=== PATIENT | female | born 1940 | race Caucasian/White ===

== ENCOUNTER 2020-07-30 17:13 | Emergency (ER) | payer MEDICARE, SELFPAY ==
[2020-07-30] VITALS (9 sets, daily range): BP systolic 113–138; BP diastolic 51–65; PULSE 71–76; RESP 12–18; TEMP 36.2–36.5; O2SAT 96–100
--- NOTE | 2020-07-30 17:15 | ED.GENADUL_ITS ---
Discharge Plan Disposition Patient Disposition: HOME Condition: Good Discharge Details Clinical Impression: Vomiting, Grief Primary Care Provider: Unknown,Unknown ED Provider: Melissa Young Home Meds and New Rx's Prescriptions: Continued atorvastatin 40 mg Tablet 40 mg PO QPM RF: 0 aspirin 325 mg Tablet 325 mg PO DAILY RF: 0 donepezil 10 mg Tablet 10 mg PO QHS RF: 0 lisinopril 20 mg Tablet 20 mg PO DAILY RF: 0 levothyroxine 100 mcg Tablet 100 mcg PO DAILY RF: 0 paroxetine HCl 20 mg Tablet 20 mg PO DAILY RF: 0 metformin 1,000 mg Tablet 1,000 mg PO BID RF: 0 furosemide 20 mg Tablet 20 mg PO DAILY RF: 0 diltiazem HCl [DILT-XR] 180 mg Capsule,Ext.Rel 24h Degradable 180 mg PO BID RF: 0 metoprolol tartrate 25 mg Tablet 25 mg PO BID RF: 0 calcium carbonate-vitamin D3 [Calcium 600 with Vitamin D3] 600 mg(1,500mg) - 500 unit Capsule 1 cap PO DAILY RF: 0 Xarelto 20 mg Tablet 20 mg PO DAILY RF: 0 Discharge Instructions Instructions: Grief and Loss (ED), Acute Nausea and Vomiting (ED) Additional Instructions: Drink plenty of fluids and get plenty of rest. Take the Phenergan as needed and directed for nausea and vomiting. Take Benadryl as needed and directed to help with sleep. You will receive a call from care management regarding a follow-up appointment with a primary care doctor to establish care and for reevaluation. Return immediately to the emergency department if you develop any worsening or new concerning symptoms. Discharge Data Discharge Date/Time-TO BE ENTERED AT DEPARTURE: 07/30/20 19:45 Discharge Physician: Melissa Young Medical Decision Making [id number] -- 80-year-old female who recently moved here from [place] after lost her presents for vomiting which occurs 1-2 times nightly for the past 4 days. Patient appears nontoxic and comfortable. Her vitals within normal limits. She has no acute complaints at this time. Her lungs are clear. Abdomen soft and nontender. No focal deficits. She was sent here by her PCP from [place] to rule out possible UTI. She has no urinary symptoms. EKG notes a rate of 73, atrial flutter, no STEMI. No old EKG to compare. Differential diagnosis includes psychosomatic reaction, viral illness, UTI, electrolyte abnormality. History and presentation not consistent with CVA or ACS. Will check screening labs, urinalysis and give fluids and Phenergan and reassess. 1900 -- Labs reviewed. Normal white blood cell count. She appears mildly dehydrated. Magnesium 1.1, will replete. Urinalysis negative. Patient reassessed and she remains asymptomatic. She has no acute complaints at this time and is requesting to go home. Daughter feels comfortable with patient going home. We will send with Phenergan. Patient placed on care management list to arrange for follow-up appoint with the primary care doctor for reevaluation and to establish care. Usual and customary return precautions given prior to discharge. Medical Records Medical records reviewed: Yes I reviewed the patient's medical records. Lab Data Lab results reviewed: Yes I reviewed the patient's lab results. Labs: Laboratory Tests Range/Units 07/30/20 07/30/20 07/30/20 17:55 17:55 18:45 WBC (4.4-10.8) 10^3/uL 8.20 RBC (3.93-5.22) 10^6/uL 4.15 Hgb (11.2-15.7) g/dL 12.3 Hct (36.0-46.0) % 36.9 MCV (80-95) fL 88.9 MCH (27.0-33.0) pg 29.6 MCHC (32.0-36.0) % 33.3 RDW (11.7-14.6) % 13.9 Plt Count (130-400) 10^3/uL 234 MPV (8.0-11.0) fL 11.1 H Immature Gran % 0.2 Neutrophils % 59.8 Lymphocytes % 27.7 Monocytes % 11.0 Eosinophils % 0.9 Basophils % 0.4 Nucleated RBC % % 0 Absolute Neutrophils (1.2-6.7) 10^3/uL 4.91 Absolute Lymphocytes (1.2-3.4) 10^3/uL 2.27 Absolute Monocytes (0.1-0.8) 10^3/uL 0.90 H Absolute Eosinophils (0.0-0.7) 10^3/uL 0.07 Absolute Basophils (0.0-0.2) 10^3/uL 0.03 Sodium (136-145) mmol/L 137 Potassium (3.5-5.1) mmol/L 3.4 L Chloride (98-107) mmol/L 100 Carbon Dioxide (21.0-32.0) mmol/L 22.7 Anion Gap (3-11) mmol/L 14.3 H BUN (7-18) mg/dL 30 H Creatinine (0.55-1.02) mg/dL 1.68 H Estimated GFR/1.73 m2 (mL/min/1.73m2) 29.47 Glucose (74-106) mg/dL 112 H Calcium (8.5-10.1) mg/dL 9.9 Magnesium (1.8-2.4) mg/dL 1.1 L Total Bilirubin (0.2-1.0) mg/dL 0.4 AST (15-37) U/L 16 ALT (14-59) U/L 21 Alkaline Phosphatase (46-116) U/L 87 Troponin I (<0.06) ng/mL < 0.05 Total Protein (6.4-8.2) g/dL 8.4 H Albumin (3.4-5.0) g/dL 4.4 Urine Color (Yellow) Yellow Urine Clarity (Clear) Clear Urine pH (5-8) 5.5 Ur Specific [place] (1.005-1.025) 1.020 Urine Protein (Negative) mg/dL Negative Urine Ketones (Negative) mg/dL Negative Urine Blood (Negative) Negative Urine Nitrite (Negative) Negative Urine Bilirubin (Negative) Negative Urine Urobilinogen (Up TO 0.2) EU/dL 0.2 Ur Leukocyte Esterase (Negative) Negative Urine Glucose (Negative) mg/dL Negative ECG Data Attestation: I personally reviewed and interpreted this ECG (s) as follows: Interpretation: Rate of 73, atrial flutter. Questionable left bundle branch block. No STEMI. No old EKG to compare. HPI General Mode of arrival: ambulatory . Date/Time Provider Initiated Documentation: 07/30/20 17:14 . Limitations to Documentation: no limitations . Information obtained by: patient . HPI Narrative: Patient is a 80-year-old female with a history of Alzheimer's dementia, atrial fibrillation, hypertension, hyperlipidemia, hypothyroidism presents for vomiting 1-2 times daily for the past 4 days that occurs only at nighttime. Daughter states that patient appears to vomit approximately 8 PM every night which is usually 1-2 times but mainly consists of food or clear liquid. She states patient does fine throughout the day and is eating normally and has no other acute complaints. She states patient lost her 1 week ago suddenly after an illness for the past 3 weeks. Daughter states that patient recently moved from [place] to live with her here. She denies any known fever, headache, dizziness, vision changes, chest pain, shortness of breath, abdominal pain, urinary symptoms, back pain, recent known sick contacts, recent antibiotics, recent medication changes or recent known exposure to coronavirus. Daughter states that patient is at her mental status baseline. Related Data Home Medications Medication Instructions Recorded Confirmed Xarelto 20 mg PO DAILY 07/30/20 07/30/20 aspirin 325 mg PO DAILY 07/30/20 07/30/20 atorvastatin 40 mg PO QPM 07/30/20 07/30/20 calcium carbonate-vitamin D3 1 cap PO DAILY 07/30/20 07/30/20 [Calcium 600 with Vitamin D3] diltiazem HCl [DILT-XR] 180 mg PO BID 07/30/20 07/30/20 donepezil 10 mg PO QHS 07/30/20 07/30/20 furosemide 20 mg PO DAILY 07/30/20 07/30/20 levothyroxine 100 mcg PO DAILY 07/30/20 07/30/20 lisinopril 20 mg PO DAILY 07/30/20 07/30/20 metformin 1,000 mg PO BID 07/30/20 07/30/20 metoprolol tartrate 25 mg PO BID 07/30/20 07/30/20 paroxetine HCl 20 mg PO DAILY 07/30/20 07/30/20 Allergies Allergy/AdvReac Type Severity Reaction Status Date / Time Penicillins Allergy Skin Rash Unverified 07/30/20 17:23 Review of Systems All systems reviewed & are unremarkable except as noted in HPI and below Constitutional Constitutional: Reports as per HPI, Denies chills and Denies fever(s) Eyes Eyes: Denies blurry vision ENT Ears, Nose, Mouth, and Throat: Denies dizziness, Denies sore throat and Denies throat swelling Cardiovascular Cardiovascular: Denies chest pain and Denies dyspnea Respiratory Respiratory: Denies cough and Denies dyspnea Gastrointestinal Gastrointestinal: Denies abdominal pain, Denies diarrhea and Reports vomiting Genitourinary Genitourinary: Denies hematuria and Denies dysuria Musculoskeletal Musculoskeletal: Denies back pain and Denies numbness Integumentary/Breasts Skin/Breast: Denies lesions and Denies rash Neurologic Neurologic: Denies dizziness, Denies localized weakness and Denies numbness Allergic/Immunologic Allergic/Immunologic: Denies throat swelling [facility] Medical History (Updated 07/30/20 @ 19:29 by Melissa Young DO) Alzheimer's dementia Atrial fibrillation HTN (hypertension) Hx of hyperlipidemia Hypothyroidism Social History Smoking/Tobacco Use Status: Former Tobacco Use Smoking risk assessment performed?: Yes Alcohol Intake: never Drug use: Never Substance use type: does not use Exam Const General: cooperative and no acute distress Orientation: alert, awake and oriented x3 HENMT Head: normal to inspection Ears: hearing grossly normal bilaterally and external ears normal General nose exam: external nose normal Face and sinus: normal facial exam Mouth: oral mucosae normal Teeth and gingiva: dentition normal Throat: posterior oropharynx normal Eyes General: appearance normal, both eyes and all related structures Eyelids: eyelids normal Pupils: PERRL EOM: EOM intact bilaterally Neck Neck: normal visual inspection Lymphatic: no lymphadenopathy noted Chest Chest: normal inspection of the chest Resp Effort & Inspection: normal respiratory effort and able to speak in complete sentences Auscultation: clear to auscultation bilaterally Cardio Rate: regular rate Rhythm: regular rhythm GI Inspection: normal to inspection Palpation: soft, not firm, no guarding, no hepatosplenomegaly, no masses and nontender Auscultation: normal bowel sounds Back/Spine/Pelvis Back: no CVA tenderness Skin General skin exam: no rashes or lesions noted Neuro General: patient alert and patient awake Cognition: normal cognition Speech: speech normal Gait: normal gait Motor: muscle tone normal throughout Sensory Exam: no sensory deficits noted Extrem General: normal to inspection, full ROM, capillary refill normal and no edema Psych Appearance: grossly normal Mental Status: mental status grossly normal Speech and Movement: speech and movement normal Affect: normal affect Thought Process: normal
--- NOTE | 2020-07-30 17:30 | RT.EKG_ITS ---
APPROVED REPORT Exam: Resting ECG Patient Location: E HR:73 bpm ECG Measurements Heart Rate 73 [place]IS [place] [id number] P [id number] QRSd 124 QRS -33 QT 424 T 99 QTc 469 Conclusion Atrial flutter with predominant 4:1 AV block...A-rate 300, multiple Ps Left bundle branch block...QRSd>120, broad/notched R ST elevation secondary to atrial flutter I have reviewed and interpreted ECG and agree with software generated interpretation.
[2020-07-30 18:00] LABS: Abs Immature Grans 0.02 10^3/uL (0.0-0.06); Absolute Basophil Count 0.03 10^3/uL (0.0-0.2); Absolute Eosinophil Count 0.07 10^3/uL (0.0-0.7); Absolute Lymphocyte Count 2.27 10^3/uL (1.2-3.4); Absolute Neutrophil Count 4.91 10^3/uL (1.2-6.7); Basophils % 0.4; Eosinophils % 0.9; HCT 36.9 % (36.0-46.0); HGB 12.3 g/dL (11.2-15.7); Immature Grans % 0.2; Lymphocytes % 27.7; MCH 29.6 pg (27.0-33.0); MCHC 33.3 % (32.0-36.0); MCV 88.9 fL (80-95); MPV 11.1 fL (8.0-11.0); Neutrophils % 59.8; Nucleated RBC 0 %; Platelet Count 234 10^3/uL (130-400); RBC 4.15 10^6/uL (3.93-5.22); RDW 13.9 % (11.7-14.6); RDW-SD 45.1 fL
[2020-07-30] MEDS: Normal Saline 1,000 ML 1000 ML IV (18:10)
[2020-07-30] MEDS: Normal Saline Flush 10 ML SYR IVP (18:20)
[2020-07-30 18:52] LABS: ALT 21 U/L (14-59); AST 16 U/L (15-37); Albumin 4.4 g/dL (3.4-5.0); Alkaline Phosphatase 87 U/L (46-116); Anion Gap 14.3 mmol/L (3-11); BUN 30 mg/dL (7-18); Bilirubin, Total 0.4 mg/dL (0.2-1.0); CO2 22.7 mmol/L (21.0-32.0); CREATININE 1.68 mg/dL (0.55-1.02); Calcium 9.9 mg/dL (8.5-10.1); Chloride 100 mmol/L (98-107); Estimated GFR 29.47 (mL/min/1.73m2); Glucose 112 mg/dL (74-106); Magnesium 1.1 mg/dL (1.8-2.4); Potassium 3.4 mmol/L (3.5-5.1); Sodium 137 mmol/L (136-145); Total Protein 8.4 g/dL (6.4-8.2)
[2020-07-30 18:53] LABS: Bilirubin Negative (Negative); Blood Negative (Negative); Clarity Clear (Clear); Glucose Negative (Negative); Ketones Negative (Negative); Leukocyte Esterase Negative (Negative); Nitrite Negative (Negative); Urobilinogen 0.2 EU/dL (Up TO 0.2); pH 5.5 (5-8)
[2020-07-30 18:54] LABS: Troponin I < 0.05 ng/mL (<0.06)
--- NOTE | 2020-07-30 19:18 | NUR.NOTE ---
Pt feeling well, denies nausea, pain. MD Young in to re-eval
[2020-07-30] MEDS: Magnesium Oxide 400 MG TAB 800 MG PO (19:44)
--- NOTE | 2020-07-30 23:40 | NUR.NOTE ---
sent referral to [facility] for pcp establishment, and follow up with pcp in 2 weeks. [facility] Nursing Note:
--- NOTE | 2020-07-30 23:41 | NUR.NOTE ---
patient left without registering with hospital. no contact info listed for f/u. unable to send referral. [facility] Nursing Note:
== END 2020-07-30 19:45 | disposition home or self-care (01) ==
LOC: ER 20:09
PROVIDERS: Emergency Provider Physician Assistant
DX: R11.2 Nausea with vomiting, unspecified (principal); F43.21 Adjustment disorder with depressed mood; G30.9 Alzheimer's disease, unspecified; F02.80 Dementia in other diseases classified elsewhere, unspecified severity, without behavioral disturbance, psychotic disturbance, mood disturbance, and anxiety; I10 Essential (primary) hypertension
CPT/HCPCS: 36415; 80053; 93005; 96361; 96365; 99284; 81003; 83735; 84484; 85025; 93010; 99285

== ENCOUNTER 2021-02-19 19:40 | Observation (INO) | payer MEDICARE, SELFPAY ==
[2021-02-19] VITALS (22 sets, daily range): BP systolic 106–142; BP diastolic 48–70; PULSE 47–73; RESP 14–44; TEMP 36.8; O2SAT 95–99
--- NOTE | 2021-02-19 20:01 | ED.GENADUL_ITS ---
Discharge Plan Disposition Patient Disposition: [facility] INPATIENT Condition: Stable Discharge Details Chief Complaint: GenMedical Clinical Impression: Accidental overdose Admit Date/Time: 02/19/21 22:40 Admit Provider: Anshu Smith Attending Provider: Anshu Smith Primary Care Provider: Elizabeth,[facility] ED Provider: Barb Turner Discharge Data Discharge Date/Time-TO BE ENTERED AT DEPARTURE: 02/19/21 22:35 Medical Decision Making Patient is a pleasant 81 year old female with hx of alzheimers who is brought in by family with c/c of accidental overdose. Immanuel lives with family. This even, per family, patient had a change in her shcedule which accidentally lead to her taking 3 of her evening medication doses. Family concerned that patient took 3 doses of her diltiazem, denepazil, metformin, atorvastatin. Todd does not remember taking the extra doses, family states that with her alzheimers, this is not unusual for her to forget. Fmaily states that she had checked medications early in the evening and belives between 5 and 6pm, patient took 3 nights dosing. Poison control is concerned for CCB overdose which would present with bradycardia, hypotension. He advised that if family can stay with her, and her vital signs are stable, patient does not need to stay to be monitored. Will depend on comfort of family, hopefully would be able to monitor BP and HR. Wake up in the evening a few times to check mentation. He advises he expects to see effects fairly quickly. Advises that 12hrs monitoring by family ok. Reviewed previous labs, patient has had low GFR on visit last fall. We discussed repeating labs, he advised that no further workup is warranted. Could check GFR to be safe but feels confident recommending outpatient renal check. Q2hr check. Keep well hydrated. On exam, patient appears nontoxic. Shortly after arrival, patient had episode of nausea and small amount of liquid emesis. No pills noted. She states this feeling has subisded, she is hungry. She is bradycardic with HR in the 50s. BP stable. Unknown what her normal BP or HR are. She is also on b-carlo which was not reported to be in the overdosed medication. She is mentating well, she is slightly confused but this is reported to be at her baseline. Discussed recommendations from Poison Control with family and patient at length. With her confusion, bradycardia, episode of emesis, and comfortability of family, plan to keep patient in the hospital overnight for her 12 hour period of monitoring. Family and patient in agreement. ECG reviewed by Dr. Young, slow atrial fibrillation noted. Patient has hx of a. fib. Baseline labs reviewed, GFR improved from previous visit. Magnesium and potassium low, will replenish. Patient remains asymptomatic. No continued N/V. She is not lightheaded, no SOB, CP. Consulted with Dr. Smiht who agrees charles admission. Patient remains on monitor. Remains in stable condition at the time of admission. HPI General Mode of arrival: ambulatory . Date/Time Provider Initiated Documentation: 02/19/21 20:01 . Limitations to Documentation: altered mental status (hx alzheimers) . Information obtained by: patient, family and RN notes reviewed . History of Present Illness 81 year old F presents to the emergency department with the chief complaint of Mistook medications, Quality is described as other (denies any pain), Patient started experiencing this hour(s) and it has been constant. Movement improves symptom(s), No exacerbating factors reported . Patient notes no other symptoms.. Patient did receive the following treatments prior to arrival, none Related Data Home Medications Medication Instructions Recorded Confirmed Xarelto 20 mg PO DAILY 07/30/20 02/19/21 aspirin 325 mg PO DAILY 07/30/20 07/30/20 atorvastatin 40 mg PO QPM 07/30/20 02/19/21 calcium carbonate-vitamin D3 1 cap PO DAILY 07/30/20 07/30/20 [Calcium 600 with Vitamin D3] diltiazem HCl [DILT-XR] 180 mg PO BID 07/30/20 02/19/21 donepezil 10 mg PO QHS 07/30/20 02/19/21 furosemide 20 mg PO DAILY 07/30/20 02/19/21 levothyroxine 100 mcg PO DAILY 07/30/20 02/19/21 lisinopril 20 mg PO DAILY 07/30/20 02/19/21 metformin 1,000 mg PO BID 07/30/20 02/19/21 metoprolol tartrate 25 mg PO BID 07/30/20 02/19/21 paroxetine HCl 20 mg PO DAILY 07/30/20 02/19/21 Allergies Allergy/AdvReac Type Severity Reaction Status Date / Time Penicillins Allergy Skin Rash Unverified 02/19/21 20:14 General ALANNA: 3 Review of Systems Unobtainable due to mental condition PFSH Medical History Alzheimer's dementia Atrial fibrillation HTN (hypertension) Hx of hyperlipidemia Hypothyroidism Social History Smoking/Tobacco Use Status: Former Tobacco Use Smoking risk assessment performed?: Yes Alcohol Intake: never Drug use: Never Substance use type: does not use Do you feel safe at home: Yes Do you feel safe in your relationship?: Yes Exam Const General: cooperative, healthy appearing, comfortable and no acute distress Nutritional Appearance: average body habitus and well nourished Orientation: alert and awake Resp Effort & Inspection: normal respiratory effort, able to speak in complete sentences and no respiratory distress Cardio Rate: bradycardic Rhythm: regular rhythm Heart Sounds: S1 normal and S2 normal GI Inspection: normal to inspection Palpation: soft and nontender Percussion: normal to percussion Skin General skin exam: no rashes or lesions noted Neuro General: patient alert and patient awake Cognition: normal cognition Speech: speech normal Gait: normal gait Psych Appearance: grossly normal and well kempt Mental Status: mental status grossly normal Speech and Movement: speech and movement normal
--- NOTE | 2021-02-19 20:45 | RT.EKG_ITS ---
APPROVED REPORT Exam: Resting ECG Reason for Exam: dilt OD Patient Location: E HR:58 bpm ECG Measurements Heart Rate 58 [address] [place] [id number] P [id number] QRSd 124 QRS -43 QT 476 T 113 QTc 468 Conclusion Atrial flutter...A-rate 294 Left bundle branch block...QRSd>120, broad/notched R. No STEMI. I have reviewed and interpreted ECG and agree with software generated interpretation.
[2021-02-19 21:39] LABS: Abs Immature Grans 0.03 10^3/uL (0.0-0.06); Absolute Basophil Count 0.03 10^3/uL (0.0-0.2); Absolute Eosinophil Count 0.07 10^3/uL (0.0-0.7); Absolute Lymphocyte Count 1.29 10^3/uL (1.2-3.4); Absolute Monocyte Count 0.77 10^3/uL (0.1-0.8); Absolute Neutrophil Count 5.25 10^3/uL (1.2-6.7); Basophils % 0.4; Eosinophils % 0.9; HCT 34.1 % (36.0-46.0); HGB 11.1 g/dL (11.2-15.7); Immature Grans % 0.4; Lymphocytes % 17.3; MCH 27.3 pg (27.0-33.0); MCHC 32.6 % (32.0-36.0); MCV 83.8 fL (80-95); MPV 11.4 fL (8.0-11.0); Monocytes % 10.3; Neutrophils % 70.7; Nucleated RBC 0 %; Platelet Count 211 10^3/uL (130-400); RBC 4.07 10^6/uL (3.93-5.22); RDW 13.8 % (11.7-14.6); RDW-SD 42.8 fL; WBC 7.44 10^3/uL (4.4-10.8)
[2021-02-19 21:57] LABS: ALT 13 U/L (14-59); AST 13 U/L (15-37); Albumin 3.7 g/dL (3.4-5.0); Alkaline Phosphatase 91 U/L (46-116); Anion Gap 15.4 mmol/L (3-11); BUN 19 mg/dL (7-18); Bilirubin, Total 0.3 mg/dL (0.2-1.0); CO2 22.6 mmol/L (21.0-32.0); CREATININE 1.1 mg/dL (0.55-1.02); Calcium 9.8 mg/dL (8.5-10.1); Chloride 103 mmol/L (98-107); Estimated GFR 47.91 (mL/min/1.73m2); Glucose 114 mg/dL (74-106); Magnesium 1.4 mg/dL (1.8-2.4); Potassium 3.4 mmol/L (3.5-5.1); Sodium 141 mmol/L (136-145); Total Protein 7.7 g/dL (6.4-8.2)
[2021-02-19 22:24] LABS: Source Nasal/Nares
[2021-02-19] MEDS: Lactated Ringers 1,000 ML 1000 ML IV (22:32)
[2021-02-19] MEDS: MAGNESIUM SULFATE 1 GM/100 ML BAG IVPB (22:33)
--- NOTE | 2021-02-19 23:54 | HPE_ITS ---
Date of service: 02/19/21 Time of Service: 23:54 Assessment and Plan Assessment and plan (1) Accidental overdose: Status: Acute Assessment and plan: monitor on telemetry overnight and if no significant bradycardias then patiet can be released home in the morning Qualifiers: Encounter type: initial encounter Qualified Code(s): T50.901A - Poisoning by unspecified drugs, medicaments and biological substances, accidental (unintentional), initial encounter History of Present Illness History of Present Illness Chief Complaint: accidental OD of meds Narrative: Patient has hx of Alzheimer's dementia, HLD, HTN afib, and hypothyroidism and her family brought her to the ER tonight d/t patient became confused and inadvertently took doses of her meds (including diltiazem xr 180 mg x 3 doses, metformin 1000 mg x 3 doses, atorvastatin 40 mg x 3 doses, and donepezil 10 mg x 3 doses). Patient presented w/ stable vital signs and Poison control was contacted by the ER staff and was advised that the patient could be discharged home as long as a responsible adult could monitor her vital signs every couple hours for 12 hrs. However family was not comfortable w/ this and therefore patient was admitted overnight for observation. Review of Systems Constitutional Constitutional: Reports as per HPI and Reports system reviewed and no additional complaints, except as documented [facility] Medical History Alzheimer's dementia Atrial fibrillation HTN (hypertension) Hx of hyperlipidemia Hypothyroidism Social History Smoking/Tobacco Use Status: Former Tobacco Use Smoking risk assessment performed?: Yes Alcohol Intake: never Drug use: Never Substance use type: does not use Do you feel safe at home: Yes Do you feel safe in your relationship?: Yes Meds Allergies and Home Medications Allergies Allergy/AdvReac Type Severity Reaction Status Date / Time Penicillins Allergy Skin Rash Unverified 02/19/21 20:14 Home Medications Medication Instructions Recorded Confirmed Type Xarelto 20 mg PO DAILY 07/30/20 02/19/21 History aspirin 325 mg PO DAILY 07/30/20 07/30/20 History atorvastatin 40 mg PO QPM 07/30/20 02/19/21 History calcium carbonate-vitamin D3 1 cap PO DAILY 07/30/20 07/30/20 History [Calcium 600 with Vitamin D3] diltiazem HCl [DILT-XR] 180 mg PO BID 07/30/20 02/19/21 History donepezil 10 mg PO QHS 07/30/20 02/19/21 History furosemide 20 mg PO DAILY 07/30/20 02/19/21 History levothyroxine 100 mcg PO DAILY 07/30/20 02/19/21 History lisinopril 20 mg PO DAILY 07/30/20 02/19/21 History metformin 1,000 mg PO BID 07/30/20 02/19/21 History metoprolol tartrate 25 mg PO BID 07/30/20 02/19/21 History paroxetine HCl 20 mg PO DAILY 07/30/20 02/19/21 History Exam Narrative Exam Narrative: Elderly white female alert/oriented to person/place HEENT: unremarkable Lungs: clear Heart: regular; no murmur, rub or gallops Abd: soft and nontender Extremities w/o edema Results Imaging EKG: image reviewed (slow afib rate of 58 bpm w/ LBBB) Labs Result diagrams: 02/20/21 06:36 02/20/21 06:36 Labs: Laboratory Results - last 24 hr 02/19/21 02/19/21 02/19/21 21:23 21:23 22:19 WBC 7.44 RBC 4.07 Hgb 11.1 L Hct 34.1 L MCV 83.8 MCH 27.3 MCHC 32.6 RDW 13.8 Plt Count 211 MPV 11.4 H Immature Gran % 0.4 Neutrophils % 70.7 Lymphocytes % 17.3 Monocytes % 10.3 Eosinophils % 0.9 Basophils % 0.4 Nucleated RBC % 0 Absolute Neutrophils 5.25 Absolute Lymphocytes 1.29 Absolute Monocytes 0.77 Absolute Eosinophils 0.07 Absolute Basophils 0.03 Sodium 141 Potassium 3.4 L Chloride 103 Carbon Dioxide 22.6 Anion Gap 15.4 H BUN 19 H Creatinine 1.1 H Estimated GFR/1.73 m2 47.91 Glucose 114 H Calcium 9.8 Magnesium 1.4 L Total Bilirubin 0.3 AST 13 L ALT 13 L Alkaline Phosphatase 91 Total Protein 7.7 Albumin 3.7 COVID-19 Source Nasal/nares Last Vital Signs Temp 36.8 C 02/19/21 22:56 Pulse 73 02/19/21 22:56 Resp 16 02/19/21 22:56 BP 133/70 02/19/21 22:56 Pulse Ox 97 02/19/21 22:56
[2021-02-20] VITALS (8 sets, daily range): BP systolic 112–132; BP diastolic 48–70; PULSE 59–84; RESP 16–18; TEMP 36.3–36.9; O2SAT 93–98
[2021-02-20 01:27] LABS: COVID-19 PCR Negative (Negative)
[2021-02-20] MEDS: Lactated Ringers 1,000 ML 85 ML IV (02:24)
--- NOTE | 2021-02-20 04:21 | NUR.NOTE ---
Jordyn from the poison centre called to check on the patient status since admission
[2021-02-20 07:25] LABS: Abs Immature Grans 0.01 10^3/uL (0.0-0.06); Absolute Basophil Count 0.03 10^3/uL (0.0-0.2); Absolute Eosinophil Count 0.09 10^3/uL (0.0-0.7); Absolute Lymphocyte Count 1.44 10^3/uL (1.2-3.4); Absolute Monocyte Count 0.68 10^3/uL (0.1-0.8); Absolute Neutrophil Count 2.97 10^3/uL (1.2-6.7); Basophils % 0.6; Eosinophils % 1.7; HCT 32.4 % (36.0-46.0); HGB 10.7 g/dL (11.2-15.7); Immature Grans % 0.2; Lymphocytes % 27.6; MCH 27.5 pg (27.0-33.0); MCV 83.3 fL (80-95); Neutrophils % 56.9; Nucleated RBC 0 %; Platelet Count 222 10^3/uL (130-400); RBC 3.89 10^6/uL (3.93-5.22); RDW 13.7 % (11.7-14.6); WBC 5.22 10^3/uL (4.4-10.8)
[2021-02-20 07:34] LABS: Anion Gap 11.5 mmol/L (3-11); BUN 17 mg/dL (7-18); CO2 25.5 mmol/L (21.0-32.0); CREATININE 0.9 mg/dL (0.55-1.02); Calcium 9.2 mg/dL (8.5-10.1); Chloride 104 mmol/L (98-107); Glucose 106 mg/dL (74-106); Potassium 3.3 mmol/L (3.5-5.1); Sodium 141 mmol/L (136-145)
--- NOTE | 2021-02-20 08:00 | RT.EKG_ITS ---
APPROVED REPORT Exam: Resting ECG Reason for Exam: bradycardia, afib Patient Location: I HR:77 bpm ECG Measurements Heart Rate 77 AXIS [place] 70 P 0 QRSd 119 QRS -36 QT 386 T 150 QTc 436 Conclusion Sinus rhythm...normal P axis, V-rate 60- 99 Incomplete RBBB and LAFB...axis(240,-40), S>R II III aVF LVH with secondary repolarization abnormality...multi-LVH criteria, abnrm ST-T
[2021-02-20] MEDS: MAGNESIUM SULFATE 1 GM/100 ML BAG IVPB (10:36)
[2021-02-20] MEDS: Potassium Chloride 20 MEQ TABCR 40 MEQ PO (10:36)
--- NOTE | 2021-02-20 13:31 | W.PM.DS.N ---
Date of service: 02/20/21 Time of Service: 13:31 DS: Diagnosis Discharge Diagnosis (1) Accidental overdose: Status: Acute Discharge Plan Disposition Patient Disposition: HOME Condition: Stable Discharge Details Reason For Visit: accidental overdose Admit Date/Time: 02/19/21 21:35 Admit Provider: Anshu Smith Attending Provider: Anshu Smith Primary Care Provider: Elizabeth,[facility] Hospital Course Hospital Course: This is a pleasant female with history of dementia, worsening since moving in with her daughter after the of her leaving her unable to safely live home alone. she has been medically stable and in her usual state of health when it was noted she took 3 doses of her evening medication back to back. family presented to the emergency department for evaluation. poison control notified and as medications included diltiazem, donepezil, metformin, and atorvastatin their recommendations were to monitor BP and heart rate closely which family was not prepared to do so she was referred to observation overnight. she remained hemodynamically stable, HR not dropping below 50 and bp remaining stable. she had no symptoms reported and was likely at her baseline. Daughter, who is guardian, would like to transfer her care locally, including pcp and database reporting consultant. referrals have been placed with Dr Vivas and Dr Nuria Terrazas accordingly. No medication adjustments have been advised. safety measures with medications discussed with daughter who has secured the medication to dispense to patient moving forward. discharge discussed with DR Vela. Home Meds and New Rx's Prescriptions: Continued atorvastatin 40 mg Tablet 40 mg PO QPM RF: 0 aspirin 325 mg Tablet 325 mg PO DAILY RF: 0 donepezil 10 mg Tablet 10 mg PO QHS RF: 0 lisinopril 20 mg Tablet 20 mg PO DAILY RF: 0 levothyroxine 100 mcg Tablet 100 mcg PO DAILY RF: 0 paroxetine HCl 20 mg Tablet 20 mg PO DAILY RF: 0 metformin 1,000 mg Tablet 1,000 mg PO BID RF: 0 furosemide 20 mg Tablet 20 mg PO DAILY RF: 0 diltiazem HCl [DILT-XR] 180 mg Capsule,Ext.Rel 24h Degradable 180 mg PO BID RF: 0 metoprolol tartrate 25 mg Tablet 25 mg PO BID RF: 0 calcium carbonate-vitamin D3 [Calcium 600 with Vitamin D3] 600 mg(1,500mg) -500 unit Capsule 1 cap PO DAILY RF: 0 Xarelto 20 mg Tablet 20 mg PO DAILY RF: 0 Discharge Instructions Instructions: Adult Overdose (ED) Additional Instructions: Will be best to have medications dispensed at medication time by a reliable individual rather than self administered. Keep all medication in a secure place. Referrals: Nuria Terrazas MD [ [facility] STAFF PHYSICIAN] - Gabriele Vivas MD [ CONSULTING PHYSICIAN] - Activity:: Activity as Tolerated Equipment/Supplies:: No Equipment Needed Diet:: As Tolerated Discharge Orders Discharge Orders: Discharge Order (Routine); Ordered 02/20/21 Ordered By: Nuria Caruso DS: Summary Time Spent with Patient providing and/or coordinating discharge services: Less than 30 minutes Status at Discharge Functional status at discharge: independent ambulation Overall status at discharge: patient is back to baseline Mental Status: mental status grossly normal Speech and Movement: speech and movement normal Mood: congruent mood Affect: normal affect Exam Narrative Exam Narrative: Elderly white female alert/oriented to person/place HEENT: unremarkable Lungs: clear Heart: regular; no murmur, rub or gallops Abd: soft and nontender Extremities w/o edema Psych Mental Status: mental status grossly normal Speech and Movement: speech and movement normal Mood: congruent mood Affect: normal affect DS: Data Vitals/I&O Vitals and I&O: Vital Signs Temperature 36.6 C 02/20/21 12:05 Temperature Source Temporal Artery Scan 02/20/21 12:05 Pulse 73 02/20/21 12:05 Pulse Rhythm Regular 02/20/21 07:26 Pulse 54 L 02/19/21 22:00 Respiratory Rate 18 02/20/21 12:05 Respiratory Effort Non-Labored 02/20/21 07:26 Respiratory Depth Normal 02/20/21 07:26 Respiratory Pattern Normal 02/20/21 07:26 Blood Pressure 114/69 02/20/21 12:05 Blood Pressure Mean 66 02/19/21 21:01 Blood Pressure Position Supine 02/19/21 20:07 Pulse Oximetry 97 02/20/21 12:05 Oxygen Delivery Method Room Air 02/20/21 12:05 Oxygen Flow Rate 0 02/20/21 12:05 Pain Level 0 02/20/21 12:05 Comment 02/20/21 12:04 Intake & Output 02/19/21 02/20/21 02/20/21 23:59 11:59 23:59 Intake Total 100 / 100 1633.583 / 2181.000 547.417 / 2181.000 Output Total 1325 / 2075 750 / 2075 Balance 100 / 100 308.583 / 106.000 -202.583 / 106.000 Weight 58.96 kg 59 kg Intake: IV 603.583 / 911.000 307.417 / 911.000 Oral 100 / 100 1030 / 1270 240 / 1270 Output: Urine 1325 / 2075 750 / 2075 Other: Urine Color Yellow Pale Yellow Urine Appearance Clear Clear Urine Odor Normal Normal Stool Size Small Stool Characteristics Soft Brown Voiding Methods Toilet Toilet Data Completed and Pending Labs on day of discharge: Labs from last 24 hours 02/20/21 02/20/21 02/19/21 06:36 06:36 22:19 WBC 5.22 RBC 3.89 L Hgb 10.7 L Hct 32.4 L MCV 83.3 MCH 27.5 MCHC 33.0 RDW 13.7 Plt Count 222 MPV 11.0 Immature Gran % 0.2 Neutrophils % 56.9 Lymphocytes % 27.6 Monocytes % 13.0 Eosinophils % 1.7 Basophils % 0.6 Nucleated RBC % 0 Absolute Neutrophils 2.97 Absolute Lymphocytes 1.44 Absolute Monocytes 0.68 Absolute Eosinophils 0.09 Absolute Basophils 0.03 Sodium 141 Potassium 3.3 L Chloride 104 Carbon Dioxide 25.5 Anion Gap 11.5 H BUN 17 Creatinine 0.9 Estimated GFR/1.73 m2 >= 60.00 Glucose 106 Calcium 9.2 Magnesium Total Bilirubin AST ALT Alkaline Phosphatase Total Protein Albumin COVID-19 Source Nasal/nares SARS-CoV-2 (PCR) Negative 02/19/21 02/19/21 21:23 21:23 WBC 7.44 RBC 4.07 Hgb 11.1 L Hct 34.1 L MCV 83.8 MCH 27.3 MCHC 32.6 RDW 13.8 Plt Count 211 MPV 11.4 H Immature Gran % 0.4 Neutrophils % 70.7 Lymphocytes % 17.3 Monocytes % 10.3 Eosinophils % 0.9 Basophils % 0.4 Nucleated RBC % 0 Absolute Neutrophils 5.25 Absolute Lymphocytes 1.29 Absolute Monocytes 0.77 Absolute Eosinophils 0.07 Absolute Basophils 0.03 Sodium 141 Potassium 3.4 L Chloride 103 Carbon Dioxide 22.6 Anion Gap 15.4 H BUN 19 H Creatinine 1.1 H Estimated GFR/1.73 m2 47.91 Glucose 114 H Calcium 9.8 Magnesium 1.4 L Total Bilirubin 0.3 AST 13 L ALT 13 L Alkaline Phosphatase 91 Total Protein 7.7 Albumin 3.7 COVID-19 Source SARS-CoV-2 (PCR) [facility] Medical History Alzheimer's dementia Atrial fibrillation HTN (hypertension) Hx of hyperlipidemia Hypothyroidism Social History Smoking/Tobacco Use Status: Former Tobacco Use Smoking risk assessment performed?: Yes Alcohol Intake: never Drug use: Never Substance use type: does not use Do you feel safe at home: Yes Do you feel safe in your relationship?: Yes
--- NOTE | 2021-02-20 13:49 | NUR.NOTE ---
Addendum entered by Shari Gilliam 02/20/21 15:07: At 1507 on 02/20/21, this RN again attempted to return a call from the pt.'s daughter, Kayleigh (sp?). The phone rang a few times and then went to voicemail. RN will reassess as necessary. Original Note: Nursing Note: At 1348 on 02/20/21, this RN attempted to return a call from the pt.'s daughter, Kayleigh (sp?). The phone rang a few times and then went to voicemail. RN will attempt to call the daughter again later. RN will reassess as necessary.
--- NOTE | 2021-02-20 15:13 | PDOC.CMDIS ---
- If Service Date Differs Date of service: 02/20/21 Time of Service: 15:21 LACE Index Scoring Tool - Questions: Length of Stay (in days): 1 Acuity (Admit via E.D.?): Yes Comorbidities: Dementia E.D. Visits: 2 - Answers: Total Score: 9 Risk of Readmission: Low Risk Care Management Discharge Reason for Hospitalization: Accidental overdose Discharge Plan: Chasidy was admitted to [facility] under observation due to taking additional doses of her prescribed medications. CM discussed with her daughter, and guardian, Ira who stated the family (Ira's and three children) had discussed need for increased medication management. Ira shared that the medications are placed in a pill organizer for the week, and shared surprise that Chasidy took extra. Ira reported the family discussed need to keep medications out of sight of her mother moving forward. Ira shared that her father in July and until then, she had not realized how advanced her mother's dementia was, as her father had been her primary caregiver. Ira stated it has been a learning curve, adjusting to caring for her mother in her home, but shared no additional concerns and reported feeling confident with managing her mother's needs. She declined offer for in home services at this time; CM reviewed outreach process if Ira changes her mind. Ira did request PCP attachment; WAYLON completed PCP follow up protocol and faxed referral to [facility]. Ira reported that Chasidy's current PCP and sandwich and drink cart operator are in [place] which creates a hardship for follow up. WAYLON discussed with SILVANA Quiñones who stated she would order cardiology follow up locally for discharge. Chasidy will follow up with her new PCP and sandwich and drink cart operator. She will transport home via private vehicle with her daughter, Ira. Patient/Family Education Needs: Review of discharge instructions, service connection, care needs upon discharge.
== END 2021-02-20 15:12 | disposition home or self-care (01) ==
LOC: ER 22:05 → MS 02-20 08:24
PROVIDERS: Admitting Provider Internal Medicine; Emergency Provider Physician Assistant; Visit Provider Internal Medicine
DX: T65.891A Toxic effect of other specified substances, accidental (unintentional), initial encounter (principal); G30.9 Alzheimer's disease, unspecified; F02.80 Dementia in other diseases classified elsewhere, unspecified severity, without behavioral disturbance, psychotic disturbance, mood disturbance, and anxiety; I48.91 Unspecified atrial fibrillation; I10 Essential (primary) hypertension; E78.5 Hyperlipidemia, unspecified; E03.9 Hypothyroidism, unspecified; Z87.891 Personal history of nicotine dependence; Z20.822 Contact with and (suspected) exposure to COVID-19; Z79.01 Long term (current) use of anticoagulants
CPT/HCPCS: 36415; 80048; 80053; 87635; 93005; 99285; 83735; 85025; 93010; 99217; 99219; 99284; G0378; J3475

== ENCOUNTER → 2021-03-25 13:57 | Outpatient (BNVA) | payer MEDICARE, SELFPAY | PROVIDERS: Visit Provider Internal Medicine Cardiovascular Disease | DX: I48.91 Unspecified atrial fibrillation (principal); I50.9 Heart failure, unspecified; R00.1 Bradycardia, unspecified; T50.901D Poisoning by unspecified drugs, medicaments and biological substances, accidental (unintentional), subsequent encounter; G30.9 Alzheimer's disease, unspecified | CPT/HCPCS: 99204; 99215 ==

== ENCOUNTER 2021-07-11 22:06 | Emergency (ER) | payer MEDICARE, SELFPAY ==
--- NOTE | 2021-07-11 22:08 | W.ED.GENAD ---
Discharge Plan Disposition Patient Disposition: HOME Condition: Good Discharge Details Clinical Impression: Candidal skin infection Primary Care Provider: Tariq Tolentino ED Provider: Jett Clemons Meds and New Rx's Prescriptions: New nystatin 100,000 unit/gram powder 1 applic topical BID Qty: 60 RF: 0 Continued metoprolol tartrate 25 mg tablet 25 mg PO BID Qty: 180 RF: 3 furosemide 20 mg tablet 20 mg PO DAILY Qty: 90 RF: 3 atorvastatin 40 mg Tablet 40 mg PO QPM RF: 0 donepezil 10 mg Tablet 10 mg PO QHS RF: 0 lisinopril 20 mg Tablet 20 mg PO DAILY RF: 0 levothyroxine 100 mcg Tablet 100 mcg PO DAILY RF: 0 paroxetine HCl 20 mg Tablet 20 mg PO DAILY RF: 0 metformin 1,000 mg Tablet 1,000 mg PO BID RF: 0 diltiazem HCl [DILT-XR] 180 mg Capsule,Ext.Rel 24h Degradable 180 mg PO BID RF: 0 Xarelto 20 mg Tablet 20 mg PO DAILY RF: 0 Discharge Instructions Instructions: Skin Yeast Infection (ED) Additional Instructions: Try to keep area under breast dry. Apply the nystatin powder two to three times a day. Follow up with PCP in 1-2 weeks if no improvement. Return to ED if problems. Referrals: Tariq Tolentino DO [Primary Care Provider] - Medical Decision Making Patient with candidal infection between and under her breast which we will treat with nystatin powder. Other areas of note are excoriated lesions due to scratching despite patient denying same. My assumption is it is subconscious and related to the dry skin. Recommend moisturizing cream for that. Follow-up with primary care 1 to 2 weeks if no improvement with skin involvement of chest/breast. HPI General Mode of arrival: ambulatory. Date/Time Provider Initiated Documentation: 07/11/21 22:08. Limitations to Documentation: no limitations. Information obtained by: patient, family and RN notes reviewed. HPI Narrative: Patient presents to the ED with irritated, erythematous areas on her chest. Unclear how long this has been present. She also has areas of excoriation on her abdomen and upper extremities which are mentioned but not her complaint. Daughter brought her in when she saw the skin on patient's chest under her breast. Patient has history of dementia and is not able to give me a timeline. She also states that she is not scratching at other areas on her arms and trunk. No report of feeling unwell, fever, cough, vomiting. Related Data Home Medications Medication Instructions Recorded Confirmed Xarelto 20 mg PO DAILY 07/30/20 03/25/21 atorvastatin 40 mg PO QPM 07/30/20 03/25/21 diltiazem HCl [DILT-XR] 180 mg PO BID 07/30/20 03/25/21 donepezil 10 mg PO QHS 07/30/20 03/25/21 levothyroxine 100 mcg PO DAILY 07/30/20 03/25/21 lisinopril 20 mg PO DAILY 07/30/20 03/25/21 metformin 1,000 mg PO BID 07/30/20 03/25/21 paroxetine HCl 20 mg PO DAILY 07/30/20 03/25/21 metoprolol tartrate 25 mg tablet 25 mg PO BID #180 tab 06/10/21 furosemide 20 mg tablet 20 mg PO DAILY #90 tab 06/26/21 nystatin 1 applic TOPICAL BID #60 g 07/11/21 Previous Rx's Medication Instructions Recorded metoprolol tartrate 25 mg tablet 25 mg PO BID #180 tab 06/10/21 furosemide 20 mg tablet 20 mg PO DAILY #90 tab 06/26/21 nystatin 1 applic TOPICAL BID #60 g 07/11/21 Allergies Allergy/AdvReac Type Severity Reaction Status Date / Time Penicillins Allergy Skin Rash Verified 03/25/21 14:09 General ALANNA: 3 Review of Systems Narrative: As documented in HPI otherwise negative as below. Const: no fever, chills, weakness Resp: no cough, SOB, pleuritic pain CV: no CP, diaphoresis, edema, syncope GI: no abdominal pain, nausea, vomiting, diarrhea Neuro: no headache, numbness, focal weakness PFSH Medical History Alzheimer's dementia Atrial fibrillation Congestive heart failure Diabetes mellitus HTN (hypertension) Hx of hyperlipidemia Hypothyroidism Family History (Updated 06/23/21 @ 08:40 by Emily Wright) Father Heart disease Hypertension Social History Smoking/Tobacco Use Status: Former Tobacco Use Smoking risk assessment performed?: Yes Alcohol Intake: never Drug use: Never Substance use type: does not use Adopted: No Caregiver/Support person: Yes Foster care: No Household members: family Housing: house Number of Children: 2 number of grandchildren: 4 Communication Needs: None Education Level: high school Do you need help understanding health information?: Always current occupation: Retired Pets and animals: Yes (1) Pets and animals: cat(s) Sexually active: No Do you think of yourself as: straight/heterosexual Current gender identity: female What is your relationship status?: How often do you talk on the phone with friends or family?: three or more times per week How often do you get together with friends or relatives?: three or more times per week Do you belong to any clubs or organized social groups?: no Panel score (0-1 are the most socially isolated patients): 1 Debo/Spiritism: Temple Special debo needs: No Seatbelt use: always Drive intox or ride w/intox commercial relief 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 Exam Narrative Exam Narrative: Const: WDWN elderly female in NAD. HEENT: NC/AT. Normal facial exam. Eyes: Normal conjunctiva and sclera. Neck: Supple. Trachea midline. Lungs: Normal respiratory effort. Neuro: Awake and alert with normal speech and gait. Cranial nerves II - XII grossly intact. No gross motor or sensory deficit. Skin: Warm and dry. Dry skin on UE and abdomen with excoriated areas. Moist, erythematous, raw rash with satellite lesions between and under breasts.
[2021-07-11 22:21] VITALS: BP 109/42; PULSE 68; RESP 17; TEMP 36.5; O2SAT 98
[2021-07-11 23:13] VITALS: BP 114/68; PULSE 72; RESP 19; TEMP 37.4; O2SAT 99
== END 2021-07-11 23:01 | disposition home or self-care (01) ==
PROVIDERS: Emergency Provider Emergency Medicine; PCP Family Medicine
DX: B37.2 Candidiasis of skin and nail (principal)
CPT/HCPCS: 99283

== ENCOUNTER → 2022-04-28 13:25 | Outpatient (BNVA) | payer MEDICARE, SELFPAY | PROVIDERS: PCP Family Medicine; Referring Provider Family Medicine; Visit Provider Internal Medicine Cardiovascular Disease | DX: I48.21 Permanent atrial fibrillation (principal) | CPT/HCPCS: 99213 ==

== ENCOUNTER 2022-05-28 14:11 | Inpatient (IN) | payer MEDICARE, SELFPAY ==
[2022-05-28] VITALS (182 sets, daily range): BP systolic 77–137; BP diastolic 31–73; PULSE 40–139; RESP 8–23; TEMP 36.8–37; O2SAT 78–100
--- NOTE | 2022-05-28 15:28 | DI.RAD_ITS ---
Exam(s) XR PORTABLE CHEST AP EXAM: XR PORTABLE CHEST AP CLINICAL HISTORY: Covid + weakness TECHNIQUE: 2D digital imaging was performed. COMPARISON: No exams were available for comparison FINDINGS: Patient is rotated. Leads overlie the chest. LUNGS: Clear. No pleural abnormality seen. HEART: Normal. AORTA: Normal. BONES: Unremarkable for age. Soft tissues: Unremarkable. IMPRESSION: No acute findings. DATA REPOSITORY: RADIATION DOSE DELIVERED:
--- NOTE | 2022-05-28 15:32 | W.ED.GENAD ---
Discharge Plan Disposition Patient Disposition: HOME Condition: Stable Discharge Details Clinical Impression: Diabetes mellitus, Congestive heart failure, Cholecystitis with cholelithiasis, DARYA (acute kidney injury), Alzheimer's dementia, COVID-19 Primary Care Provider: Tariq Tolentino ED Provider: Marj Alvarado Discharge Data Discharge Date/Time-TO BE ENTERED AT DEPARTURE: 05/28/22 22:10 Medical Decision Making <Yasmani Dunn NP - Last Filed: 06/01/22 13:47> Patient presenting to the emergency department for chief complaint of generalized weakness. Patient started having COVID-like symptoms and tested positive on home antigen test with symptoms starting on Wednesday night. Patient was then started on pack paxlovid on Wednesday but is continued to have worsening generalized weakness. Patient saw primary care provider who recommended patient come to the emergency department due to low blood pressure and need of IV fluids. Patient has been having GI symptoms and started with slight cough today otherwise no other symptoms. Physical exam shows clear lung sounds bilateral, generalized weakness but otherwise unremarkable exam. We will plan on checking labs and giving fluids and also repeating PCR COVID. Patient is hypotensive on review of vital signs otherwise stable. Patient is unvaccinated and does have significant history of A. fib, CHF, diabetes, and Alzheimer's. <SHELIA Ross - Last Filed: 05/29/22 09:03> Patient presenting to the emergency department for chief complaint of generalized weakness. Patient started having COVID-like symptoms and tested positive on home antigen test with symptoms starting on Wednesday night. Patient was then started on pack paxlovid on Wednesday but is continued to have worsening generalized weakness. Patient saw primary care provider who recommended patient come to the emergency department due to low blood pressure and need of IV fluids. Patient has been having GI symptoms and started with slight cough today otherwise no other symptoms. Physical exam shows clear lung sounds bilateral, generalized weakness but otherwise unremarkable exam. We will plan on checking labs and giving fluids and also repeating PCR COVID. Patient is hypotensive on review of vital signs otherwise stable. Patient is unvaccinated and does have significant history of A. fib, CHF, diabetes, and Alzheimer's. LB: care accepted in transition labs reviewed: creat 3.4, gap 23, lipas 1236, lfts 117, covid +, trop 95, klactate 6 status: initially hypotensive, now with stable map, but soft pressure, alert and at baseline mentation [place] placed for I and O obtained cefepime and flagyl for possible cholangitis vs choledocholithiasis / consulted with DR Robertson, may need ERCP, plan to transfer secondary to widespread lack of capacity and inability to transfer pt, she will be admitted at this facility and maintain this decision is in the best interest of the patient given condition and comorbidities troponin with changes lateral leads on ekg, pt without reported chest pain or sob, DNR/DNI status, on xarelto with downtrending troponins repeat lactate 6, will continue infusion without bolus 2 L of NS over several hours secondary to CHF no evidence of volume overload, pt is intravascularly depleted/ i and o monitored ct reviewed with biliary duct dilation, reviewed above covid+ cxr wnl, no hypoxia DNR/DNI confirmed with pt's daughter and DPOA HPI <Yasmani Dunn NP - Last Filed: 06/01/22 13:47> General Mode of arrival: wheelchair. Date/Time Provider Initiated Documentation: 05/28/22 14:12. Limitations to Documentation: no limitations. Information obtained by: patient and family. History of Present Illness 82 year old F presents to the emergency department with the chief complaint of COVID-positive weakness, described as moderate, Quality is described as other (Denies pain or discomfort), Patient started experiencing this day(s) (5) and it has been constant. No relieving factors improve symptom(s), No exacerbating factors reported . Patient notes no other symptoms.. Related Data Home Medications Medication Instructions Recorded Confirmed furosemide 20 mg tablet 20 mg PO DAILY #90 tabs 06/26/21 05/28/22 metformin 1,000 mg tablet 1,000 mg PO BID #180 tabs 07/14/21 05/28/22 donepezil 10 mg tablet 10 mg PO QHS #90 tabs 10/02/21 05/28/22 levothyroxine 100 mcg tablet 100 mcg PO DAILY #90 tabs 10/02/21 05/28/22 paroxetine HCl 20 mg tablet 20 mg PO DAILY #30 tabs 10/22/21 05/28/22 rivaroxaban 20 mg tablet (Xarelto) 20 mg PO DAILY #90 tabs 10/23/21 05/28/22 atorvastatin 40 mg tablet 40 mg PO QPM #90 tabs 02/03/22 05/28/22 lisinopril 20 mg tablet 20 mg PO DAILY #90 tabs 02/03/22 05/28/22 nystatin 100,000 unit/gram topical 1 applic topical BID PRN 04/28/22 04/28/22 powder cefuroxime axetil 500 mg tablet 500 mg PO BID #6 tabs 06/01/22 metoprolol tartrate 25 mg tablet 12.5 mg PO BID #60 tabs 06/01/22 Previous Rx's Medication Instructions Recorded furosemide 20 mg tablet 20 mg PO DAILY #90 tabs 06/26/21 metformin 1,000 mg tablet 1,000 mg PO BID #180 tabs 07/14/21 donepezil 10 mg tablet 10 mg PO QHS #90 tabs 10/02/21 levothyroxine 100 mcg tablet 100 mcg PO DAILY #90 tabs 10/02/21 paroxetine HCl 20 mg tablet 20 mg PO DAILY #30 tabs 10/22/21 rivaroxaban 20 mg tablet (Xarelto) 20 mg PO DAILY #90 tabs 10/23/21 atorvastatin 40 mg tablet 40 mg PO QPM #90 tabs 02/03/22 lisinopril 20 mg tablet 20 mg PO DAILY #90 tabs 02/03/22 cefuroxime axetil 500 mg tablet 500 mg PO BID #6 tabs 06/01/22 metoprolol tartrate 25 mg tablet 12.5 mg PO BID #60 tabs 06/01/22 Allergies Allergy/AdvReac Type Severity Reaction Status Date / Time Penicillins Allergy Skin Rash Verified 04/30/22 13:35 General Stated Complaint: GenMedical ALANNA: 3 Review of Systems <Yasmani Dunn, COREMAKER HELPER - Last Filed: 06/01/22 13:47> Constitutional Constitutional: Denies chills, Denies fever(s), Reports lethargy, Reports malaise, Reports poor appetite and Reports weakness ENT Ears, Nose, Mouth, and Throat: Denies dizziness, Reports nasal congestion and Reports sore throat Cardiovascular Cardiovascular: Denies chest pain, Denies syncope and Denies dyspnea Respiratory Respiratory: Reports cough and Denies dyspnea Gastrointestinal Gastrointestinal: Denies abdominal pain, Reports diarrhea, Reports nausea and Reports vomiting Integumentary/Breasts Skin/Breast: Denies rash Neurologic Neurologic: Denies dizziness, Denies syncope and Reports weakness PFS <Yasmani Dunn NP - Last Filed: 06/01/22 13:47> All Active Problems Transaminitis (Acute) Discharge planning issues (Acute) DVT prophylaxis (Acute) COVID-19 (Acute) DARYA (acute kidney injury) (Acute) Elevated troponin I measurement (Acute) Pneumonia due to COVID-19 virus (Acute) Positive self-administered antigen test for COVID-19 (Acute) positive home test 05/26/22 Glaucoma (Chronic) Candidal skin infection (Acute) Alzheimer's dementia (Chronic) Atrial fibrillation (Chronic) Congestive heart failure (Chronic) Diabetes mellitus (Chronic) Accidental overdose (Acute) Medical History GI bleed HTN (hypertension) Hx of hyperlipidemia Hypothyroidism Family History Father Heart disease Hypertension Social History Smoking/Tobacco Use Status: Former Tobacco Use Smoking risk assessment performed?: Yes Alcohol Intake: never Drug use: Never Substance use type: does not use Adopted: No Caregiver/Support person: Yes Foster care: No Household members: family Housing: house Number of Children: 2 number of grandchildren: 4 Communication Needs: None Education Level: high school Do you need help understanding health information?: Always current occupation: Retired Pets and animals: Yes (1) Pets and animals: cat(s) Sexually active: No Do you think of yourself as: straight/heterosexual Current gender identity: female What is your relationship status?: How often do you talk on the phone with friends or family?: three or more times per week How often do you get together with friends or relatives?: three or more times per week Do you belong to any clubs or organized social groups?: no Panel score (0-1 are the most socially isolated patients): 1 Debo/Methodist: Zoroastrianism Special debo needs: No Seatbelt use: always Drive intox or ride w/intox utility worker 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 Exam <Yasmani Dunn NP - Last Filed: 06/01/22 13:47> Const General: cooperative, no acute distress, frail appearing and ill appearing acutely Orientation: alert and awake HENCT Head: normal to inspection, normocephalic and atraumatic Ears: hearing grossly normal bilaterally General nose exam: external nose normal Mouth: moist mucous membranes Neck Neck: normal visual inspection, no meningeal signs, trachea midline and supple Resp Effort & Inspection: normal respiratory effort, able to speak in complete sentences and no respiratory distress Auscultation: clear to auscultation bilaterally Cardio Rate: regular rate Rhythm: regular rhythm Heart Sounds: S1 normal and S2 normal Skin General skin exam: no rashes or lesions noted Neuro General: patient alert, patient awake and moves all extremities Motor: other (Generalized weakness) Course <Yasmani Dunn NP - Last Filed: 06/01/22 13:47> Vital Signs Vital signs: Vital Signs Temperature 36.8 C 05/28/22 14:17 Pulse 60 05/28/22 14:17 Respiratory Rate 20 05/28/22 14:17 Blood Pressure 77/36 L 05/28/22 14:17 Pulse Oximetry 95 05/28/22 14:17 Temperature 36.8 C 05/28/22 14:17 Temperature Source Temporal Artery Scan 05/28/22 14:17 Pulse 60 05/28/22 14:17 Respiratory Rate 18 05/28/22 14:44 Respiratory Effort Non-Labored 05/28/22 14:44 Respiratory Depth Normal 05/28/22 14:44 Blood Pressure 77/36 L 05/28/22 14:17 Pulse Oximetry 95 05/28/22 14:17 Oxygen Delivery Method Room Air 05/28/22 14:17 Oxygen Flow Rate 0 05/28/22 14:17 Lab/Test Results Lab/Test Results: 05/28/22 14:47 Blood Blood Culture - Pending 05/28/22 14:47 Blood Blood Culture - Pending <SHELIA Ross - Last Filed: 05/29/22 09:03> Critical Care Time Critical Care Time: Yes Total Critical Care Time: 60 Attestation: iv fluid resuscitation secondary to ARF and lactic acid and metabolic acidosis, iv antibiotics with suspected biliary obstruction, telemetry monitoring Sign Out <Yasmani Dunn NP - Last Filed: 06/01/22 13:47> Sign Out Data: Sign Out Comment: Patient pending reassessment and review of labs for COVID illness with suspected dehydration due to diarrhea and vomiting along with generalized weakness. Last updated by Yasmani Dunn, SILVANA at 05/28/22 16:07
[2022-05-28 15:46] LABS: Source Nasal/Nares
[2022-05-28 16:03] LABS: Abs Immature Grans 0.02 10^3/uL (0.0-0.06); Absolute Basophil Count 0.01 10^3/uL (0.0-0.2); Absolute Lymphocyte Count 0.85 10^3/uL (1.2-3.4); Absolute Monocyte Count 0.51 10^3/uL (0.1-0.8); Absolute Neutrophil Count 3.81 10^3/uL (1.2-6.7); Basophils % 0.2; HCT 38.4 % (36.0-46.0); HGB 12.7 g/dL (11.2-15.7); Immature Grans % 0.4; Lymphocytes % 16.3; MCH 27.3 pg (27.0-33.0); MCHC 33.1 % (32.0-36.0); MCV 83 fL (80-95); MPV 10.6 fL (8.0-11.0); Monocytes % 9.8; Neutrophils % 73.3; Platelet Count 218 10^3/uL (130-400); RBC 4.65 10^6/uL (3.93-5.22); RDW 15.3 % (11.7-14.6); RDW-SD 46.1 fL
--- NOTE | 2022-05-28 16:15 | RT.EKG_ITS ---
APPROVED REPORT Exam: Resting ECG Reason for Exam: weakness Patient Location: E HR:47 bpm ECG Measurements Heart Rate 47 AXIS [place] [id number] P [id number] QRSd 165 QRS -46 QT 612 T 253 QTc 543 Conclusion Unabe to appreciate P waves RBBB and LAFB. LVH with secondary repolarization abnormality...multi-LVH criteria, abnrm ST-T Anterior Q waves, possibly due to LVH.
[2022-05-28 16:19] LABS: COVID-19 PCR POSITIVE (Negative)
[2022-05-28] MEDS: Normal Saline 250 ML IV (16:27)
[2022-05-28 16:28] LABS: ALT 80 U/L (14-59); AST 277 U/L (15-37); Alkaline Phosphatase 152 U/L (46-116); BUN 42 mg/dL (7-18); CREATININE 3.4 mg/dL (0.55-1.02); Calcium 8.5 mg/dL (8.5-10.1); Chloride 89 mmol/L (98-107); Estimated GFR 13.11 (mL/min/1.73m2); Glucose 97 mg/dL (74-106); Potassium 3.8 mmol/L (3.5-5.1); Sodium 131 mmol/L (136-145); Total Protein 8.4 g/dL (6.4-8.2)
[2022-05-28 16:40] LABS: Lipase 1287 U/L (73-393)
--- NOTE | 2022-05-28 17:15 | DI.CT_ITS ---
Exam(s) CT ABDOMEN PELVIS WO EXAM: CT ABDOMEN PELVIS WO CLINICAL HISTORY: renal failure, covid. TECHNIQUE: Imaging Protocol: Axial computed tomography images with coronal and sagittal reformatted images were created and reviewed. Oral: yes / no COMPARISON: No exams were available for comparison FINDINGS: ABDOMEN: Lung Bases: Lung normal where visualized. Cardiomegaly. Coronary artery calcifications. Liver: Normal density. No measurable mass. Gallbladder and biliary tract: No radiodense calculus. Mild ductal dilation, likely age related.. Pancreas: Normal density, no abnormal calcifications or inflammatory process. Mild dilatation of the pancreatic duct. Spleen: Normal. Kidneys: Normal size, contour and axis. Normal parenchymal thickness. No hydronephrosis. Nonobstru cting bilateral renal calculi. No masses seen. Adrenal glands: No masses seen. Lymph nodes: Within normal limits. Abdominal Aorta: Abdominal portion non-dilated. Atherosclerotic calcifications. PELVIS: Bladder: Symmetric distention, no gross wall thickening. Bowel: Diverticulosis. Normal quantity of stool. No obstruction or bowel wall thickening. Evaluati on of the small bowel is limited by lack of IV an oral contrast. There is a question of mild dilatat ion of loops of bowel in the pelvis. Peritoneal cavity: No ascites, collection or mesenteric inflammatory response. Reproductive organs: Within normal limits. Bones: Mild degenerative changes, within normal limits for age. IMPRESSION: Question of mild dilatation of small bowel in the pelvis. Findings could represent enteritis. There is diverticulosis but no evidence of diverticulitis. Nonobstructing bilateral renal calculi are not ed. There is mild biliary dilatation and dilatation of the common duct which may be age related. Th ere is no definite obstructing stone or mass. RADIATION DOSE DELIVERED: 665.89mGy.cm Total DLP DATA REPOSITORY: All CT scans at this facility are submitted to the National Radiology Data Registry (NRDR) Dose Index Registry (DIR) with the [employer] (A[employer]). RADIATION OPTIMIZATION: All CT scans at this facility use at least one of these dose optimization te chniques: automated exposure control; mA and/or kV adjustment per patient size (includes targeted exa ms where dose is matched to clinical indication); or iterative reconstruction.
--- NOTE | 2022-05-28 18:24 | DI.VRAD_ITS ---
PROCEDURE INFORMATION: Exam: CT Abdomen And Pelvis Without Contrast Exam date and time: 05/28/2022 5:52 PM Age: 82 years old Clinical indication: Other: Renal failure, covid TECHNIQUE: Imaging protocol: Computed tomography of the abdomen and pelvis without contrast. COMPARISON: CR XR PORTABLE CHEST AP 05/28/2022 3:01 PM FINDINGS: Liver: Intrahepatic biliary ductal dilatation No mass. Mild hepatomegaly Gallbladder and bile ducts: No calcified gallstones. Dilated common bile duct without calcified stones. Question faint area of increased density on coronal image 40 in the expected location of the ampulla Pancreas: Mild ductal prominence Spleen: No splenomegaly. Adrenal glands: No mass. Kidneys and ureters: Bilateral nephrolithiasis No hydronephrosis. Stomach and bowel: Colonic diverticulosis. No obstruction. Prominent minimally thickened bowel loops in the lower abdomen and pelvis. Appendix: No evidence of appendicitis. Intraperitoneal space: Unremarkable. No free air. No significant fluid collection. Vasculature: Atherosclerosis No abdominal aortic aneurysm. Lymph nodes: Unremarkable. No enlarged lymph nodes. Urinary bladder: Unremarkable as visualized. Reproductive: Unremarkable as visualized. Bones/joints: Degenerative changes in the spine No acute fracture. Soft tissues: Unremarkable. IMPRESSION: Non-specific bowel gas pattern which may represent mild enteritis/ileus Biliary ductal dilatation as described. Possible faint calculus versus artifact in the region of the ampulla. Nephrolithiasis without hydroureteronephrosis Colonic diverticulosis without diverticulitis Dictated and Authenticated by: Elio Banks MD. Ordering:RAMIN Mcmahan MD
[2022-05-28 18:36] LABS: Magnesium 1.7 mg/dL (1.8-2.4)
[2022-05-28 18:51] LABS: Troponin I 95 ng/L (<or=60)
[2022-05-28] MEDS: CEFEPIME 2 GM in Normal Saline 100 ML IVPB (19:39)
[2022-05-28 19:46] LABS: Bilirubin Negative (Negative); Blood Small (Negative); Clarity Sl Cloudy (Clear); Glucose Negative (Negative); Ketones Negative (Negative); Leukocyte Esterase Negative (Negative); Nitrite Negative (Negative); Urobilinogen 0.2 EU/dL (Up TO 0.2); pH 5.5 (5-8)
[2022-05-28 19:55] LABS: Bacteria Few HPF (Negative); C & S Indicated? No; Casts 5-10 Hyaline LPF (Negative); Crystals Moderate Amorphous HPF (Negative); Epithelial Cells Few HPF (Negative); Mucus Negative (Negative)
[2022-05-28 20:21] LABS: Troponin I 69 ng/L (<or=60)
[2022-05-28] MEDS: metroNIDAZOLE 500 MG/100 ML BAG 100 MG IVPB (21:01)
--- NOTE | 2022-05-28 21:23 | HPE_ITS ---
Date of service: 05/28/22 Time of Service: 21:23 Assessment and Plan Assessment and plan (1) Pneumonia due to COVID-19 virus: Start date: 05/28/22 Status: Acute Assessment and plan: This is an 82-year-old lady with Alzheimer's and paroxysmal atrial fibrillation now with rated cardia and mildly elevated troponin who presents with a 5-day history of symptoms started out as mild GI but generalized weakness and now more respiratory with COVID positive test 3 days prior to admission. She was on Paxlovid upon admission but this has been changed to remdesivir and dexamethasone. She also was dry chronically been on furosemide with poor intake and has responded to IV fluid resuscitation which will be cautious with history of CHF. She is a DNR/DNI. Monitor oxygen status and respiratory status closely. She does have some abdominal findings on CT with possible choledocholithiasis and cholecystitis and will be treated with IV antibiotic coverage for lungs and abdomen with surgical consultation. (2) Cholecystitis with cholelithiasis: Start date: 05/28/22 Status: Acute Assessment and plan: Positive on CT findings but minimal physical findings and history vague as to GI symptoms. Surgical consultation with further evaluation with ultrasound if indicated and consider ERCP if actual obstruction of common duct with stone or sludge. Antibiotic coverage while awaiting further studies and consultation. Qualifiers: Biliary obstruction: with biliary obstruction Cholecystitis acuity: acute and chronic Cholelithiasis location: bile duct Qualified Code(s): K80.47 - Calculus of bile duct with acute and chronic cholecystitis with obstruction (3) DARYA (acute kidney injury): Start date: 05/28/22 Status: Acute Assessment and plan: IV hydration and monitor labs watch for fluid overload with history of CHF. Hold diuretic. (4) Atrial fibrillation: Status: Chronic Assessment and plan: Paroxysmal atrial fibrillation with patient now in sinus rhythm with slower heart rate having been given usual dose of verapamil. Split dosing of verapamil and metoprolol monitor closely for hypotension and bradycardia. Patient will continue on Xarelto. Trend troponins with slight elevation of troponins upon admission. Patient is a DNR/DNI. Qualifiers: Atrial fibrillation type: paroxysmal Qualified Code(s): I48.0 - Paroxysmal atrial fibrillation (5) Elevated troponin I measurement: Start date: 05/28/22 Status: Acute Assessment and plan: Slight elevation in troponins which appears to be demand ischemia. Monitor with trending. Patient is on Xarelto which will be continued. No need for further interventions at this time other than hydration and addressing possible infection with cholecystitis and COVID-19. (6) Diabetes mellitus: Status: Chronic Assessment and plan: Monitor while hospitalized with sliding scale short acting insulin coverage. Hold outpatient medications for now. (7) Alzheimer's dementia: Status: Chronic Assessment and plan: On outpatient treatment and mild dementia presently. Monitor for behavioral abnormalities with patient's acute illness. She may be difficult to maintain an IV because of fidgetiness and Lorenzo has been removed. History of Present Illness History of Present Illness Chief Complaint: Dyspnea, Nausea and Vomiting Narrative: This is an 82-year-old female patient who presented to the ED department with complaint of generalized weakness for 5 days having tested positive for COVID earlier this week 3 days prior to admission. She was darted on Paxlovid 2 days prior to admission but began to have worsening generalized weakness. She was seen by the PCP and had hypotension and was sent to the ED for possible IV fluids. She continued to take a diuretic at home and in the ED was found to have acute kidney injury and responded to IV fluids for hypotension. She also had cough but no significant fever and history of Alzheimer's with slight worsening of her dementia. She also has diabetes with paroxysmal atrial fibri llation on anticoagulation with CHF on Lasix as mentioned which did cause her to be somewhat dehydrated upon admission. Imaging also revealed dilated biliary system and common duct with possible common duct stone and cholecystitis with patient initiated on antibiotic coverage for her respiratory symptoms and possible cholecystitis. As stated she was responding to IV fluids and felt better after having a couple of liters with ongoing fluids to be maintained overnight. ? Review of Systems Narrative: 13 point review of systems otherwise unrevealing or stable with patient unable to give much history with her short-term memory loss. She appeared pleasantly confused at the time of my interview. Family did report mild GI symptoms prior to presentation with abdominal discomfort and decreased intake. [facility] All Active Problems Transaminitis (Acute) Discharge planning issues (Acute) DVT prophylaxis (Acute) COVID-19 (Acute) DARYA (acute kidney injury) (Acute) Elevated troponin I measurement (Acute) Cholecystitis with cholelithiasis (Acute) Pneumonia due to COVID-19 virus (Acute) Positive self-administered antigen test for COVID-19 (Acute) positive home test 05/26/22 Glaucoma (Chronic) Candidal skin infection (Acute) Alzheimer's dementia (Chronic) Atrial fibrillation (Chronic) Congestive heart failure (Chronic) Diabetes mellitus (Chronic) Accidental overdose (Acute) Medical History GI bleed HTN (hypertension) Hx of hyperlipidemia Hypothyroidism Family History Father Heart disease Hypertension Social History Smoking/Tobacco Use Status: Former Tobacco Use Smoking risk assessment performed?: Yes Alcohol Intake: never Drug use: Never Substance use type: does not use Adopted: No Caregiver/Support person: Yes Foster care: No Household members: family Housing: house Number of Children: 2 number of grandchildren: 4 Communication Needs: None Education Level: high school Do you need help understanding health information?: Always current occupation: Retired Pets and animals: Yes (1) Pets and animals: cat(s) Sexually active: No Do you think of yourself as: straight/heterosexual Current gender identity: female What is your relationship status?: How often do you talk on the phone with friends or family?: three or more times per week How often do you get together with friends or relatives?: three or more times per week Do you belong to any clubs or organized social groups?: no Panel score (0-1 are the most socially isolated patients): 1 Debo/Restorationism: Tenriism Special debo needs: No Seatbelt use: always Drive intox or ride w/intox 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 waste truck 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 Meds Allergies and Home Medications Allergies Allergy/AdvReac Type Severity Reaction Status Date / Time Penicillins Allergy Skin Rash Verified 04/30/22 13:35 Home Medications Medication Instructions Recorded Confirmed Type metoprolol tartrate 25 mg tablet 25 mg PO BID #180 tabs 06/10/21 05/28/22 Rx furosemide 20 mg tablet 20 mg PO DAILY #90 tabs 06/26/21 05/28/22 Rx metformin 1,000 mg tablet 1,000 mg PO BID #180 tabs 07/14/21 05/28/22 Rx donepezil 10 mg tablet 10 mg PO QHS #90 tabs 10/02/21 05/28/22 Rx levothyroxine 100 mcg tablet 100 mcg PO DAILY #90 tabs 10/02/21 05/28/22 Rx paroxetine HCl 20 mg tablet 20 mg PO DAILY #30 tabs 10/22/21 05/28/22 Rx rivaroxaban 20 mg tablet (Xarelto) 20 mg PO DAILY #90 tabs 10/23/21 05/28/22 Rx atorvastatin 40 mg tablet 40 mg PO QPM #90 tabs 02/03/22 05/28/22 Rx lisinopril 20 mg tablet 20 mg PO DAILY #90 tabs 02/03/22 05/28/22 Rx diltiazem HCl 180 mg 180 mg PO DAILY #90 caps 03/19/22 05/28/22 Rx capsule,extended release 24 hr, controlled (DILT-XR) nystatin 100,000 unit/gram topical 1 applic topical BID PRN 04/28/22 04/28/22 History powder nirmatrelvir 300 mg (150 mg See Rx Instructions PO .COMPLEX 05/26/22 05/28/22 Rx x2)-ritonavir 100 mg tablet,dose #30 dose pk pack(EUA) (Paxlovid) Exam Narrative Exam Narrative: General: Patient appears appropriate for age, alert and oriented to at least person and place but at times answering questions incorrectly. She is in no acute distress sitting up in bed. HEENT: Normocephalic, eyes with pupils equal and reactive light symmetrically, extraocular movement intact and sclera anicteric. Oropharynx with moist mucosa. Neck: Supple without JVD. Back: Stooped posture without CVA tenderness. Lungs: Bronchovesicular breath sounds diffusely with raspy inspiratory breath sounds without focalizing rales or rhonchi. Occasional coarse crackle nonfocalizing. Slightly increased expiratory phase but no expiratory wheeze. Breast: Exam deferred. Heart: Regular rate and rhythm with bradycardia at times. No appreciable murmur or gallop. Abdomen: Obese contour, soft to palpation with slight guarding in the right upper quadrant but no Godoy sign and no palpable hepatosplenomegaly, no rebound. Bowel sounds positive all quadrants. Genitalia/rectal: Exam deferred patient to have Lorenzo catheter which has been removed. Extremities: Without clubbing, cyanosis or pitting edema. Chronic skin changes lower extremities. Fair capillary refill. Skin: Actinic changes over sun exposed areas with rough texture, warm and dry. Neuro: Cranial nerves II through XII gross intact, no focalized motor deficits. Psych: Normal affect and mood with at times inappropriate answers to questions. No abnormal thought processes manifested. Remote memory grossly intact though patient is a poor historian. Short-term memory less intact. She does confabulate well. Results Imaging Additional studies: Echocardiogram 2027 preserved LVEF% Imaging Studies: Exam: CT Abdomen And Pelvis Without Contrast Exam date and time: 05/28/2022 5:52 PM Age: 82 years old Clinical indication: Other: Renal failure, covid TECHNIQUE: Imaging protocol: Computed tomography of the abdomen and pelvis without contrast. COMPARISON: CR XR PORTABLE CHEST AP 05/28/2022 3:01 PM FINDINGS: Liver:? Intrahepatic biliary ductal dilatation No mass.? Mild hepatomegaly Gallbladder and bile ducts: No calcified gallstones.? Dilated common bile duct without calcified stones.? Question faint area of increased density on coronal image 40 in the expected location of the ampulla Pancreas:? Mild ductal prominence Spleen: No splenomegaly. Adrenal glands: No mass. Kidneys and ureters:? Bilateral nephrolithiasis No hydronephrosis. Stomach and bowel:? Colonic diverticulosis. No obstruction.? Prominent minimally thickened bowel loops in the lower abdomen and pelvis. Appendix: No evidence of appendicitis. Intraperitoneal space: Unremarkable. No free air. No significant fluid collection. Vasculature:? Atherosclerosis No abdominal aortic aneurysm. Lymph nodes: Unremarkable. No enlarged lymph nodes. Urinary bladder: Unremarkable as visualized. Reproductive: Unremarkable as visualized. Bones/joints:? Degenerative changes in the spine No acute fracture. Soft tissues: Unremarkable. IMPRESSION: Non-specific bowel gas pattern which may represent mild enteritis/ileus Biliary ductal dilatation as described.? Possible faint calculus versus artifact in the region of the ampulla.? Nephrolithiasis without hydroureteronephrosis Colonic diverticulosis without diverticulitis Labs Result diagrams: 05/29/22 05:25 05/29/22 05:25 Labs: Laboratory Results - last 24 hr 05/28/22 05/28/22 05/28/22 15:35 15:50 15:50 WBC 5.20 RBC 4.65 Hgb 12.7 Hct 38.4 MCV 83 MCH 27.3 MCHC 33.1 RDW 15.3 H Plt Count 218 MPV 10.6 Immature Gran % 0.4 Neutrophils % 73.3 Lymphocytes % 16.3 Monocytes % 9.8 Eosinophils % 0.0 Basophils % 0.2 Nucleated RBC % 0.0 Absolute Neutrophils 3.81 Absolute Lymphocytes 0.85 L Absolute Monocytes 0.51 Absolute Eosinophils 0.00 Absolute Basophils 0.01 VBG Lactate Sodium Potassium Chloride Carbon Dioxide Anion Gap BUN Creatinine Est GFR (CKD-EPI 2020) Glucose Calcium Magnesium Total Bilirubin AST ALT Alkaline Phosphatase Troponin I Total Protein Albumin Lipase 1287 H Urine Color Urine Clarity Urine pH Ur Specific [place] Urine Protein Urine Ketones Urine Blood Urine Nitrite Urine Bilirubin Urine Urobilinogen Ur Leukocyte Esterase Urine RBC Urine WBC Ur Epithelial Cells Urine Crystals Urine Bacteria Urine Casts Urine Mucus Ur Culture Indicated? Urine Glucose COVID-19 Source Nasal/Nares SARS-CoV-2 (PCR) POSITIVE A* 05/28/22 05/28/22 05/28/22 15:50 15:50 15:50 WBC RBC Hgb Hct MCV MCH MCHC RDW Plt Count MPV Immature Gran % Neutrophils % Lymphocytes % Monocytes % Eosinophils % Basophils % Nucleated RBC % Absolute Neutrophils Absolute Lymphocytes Absolute Monocytes Absolute Eosinophils Absolute Basophils VBG Lactate 6.0 H* Sodium 131 L Potassium 3.8 Chloride 89 L Carbon Dioxide 21.0 Anion Gap 21.0 H BUN 42 H Creatinine 3.4 H Est GFR (CKD-EPI 2020) 13.11 Glucose 97 Calcium 8.5 Magnesium 1.7 L Total Bilirubin 1.0 AST 277 H ALT 80 H Alkaline Phosphatase 152 H Troponin I Total Protein 8.4 H Albumin 4.0 Lipase Urine Color Urine Clarity Urine pH Ur Specific [place] Urine Protein Urine Ketones Urine Blood Urine Nitrite Urine Bilirubin Urine Urobilinogen Ur Leukocyte Esterase Urine RBC Urine WBC Ur Epithelial Cells Urine Crystals Urine Bacteria Urine Casts Urine Mucus Ur Culture Indicated? Urine Glucose COVID-19 Source SARS-CoV-2 (PCR) 05/28/22 05/28/22 05/28/22 15:50 19:20 19:20 WBC RBC Hgb Hct MCV MCH MCHC RDW Plt Count MPV Immature Gran % Neutrophils % Lymphocytes % Monocytes % Eosinophils % Basophils % Nucleated RBC % Absolute Neutrophils Absolute Lymphocytes Absolute Monocytes Absolute Eosinophils Absolute Basophils VBG Lactate 6.0 H* Sodium Potassium Chloride Carbon Dioxide Anion Gap BUN Creatinine Est GFR (CKD-EPI 2020) Glucose Calcium Magnesium Total Bilirubin AST ALT Alkaline Phosphatase Troponin I 95 H* 69 H* Total Protein Albumin Lipase Urine Color Urine Clarity Urine pH Ur Specific [place] Urine Protein Urine Ketones Urine Blood Urine Nitrite Urine Bilirubin Urine Urobilinogen Ur Leukocyte Esterase Urine RBC Urine WBC Ur Epithelial Cells Urine Crystals Urine Bacteria Urine Casts Urine Mucus Ur Culture Indicated? Urine Glucose COVID-19 Source SARS-CoV-2 (PCR) 05/28/22 19:40 WBC RBC Hgb Hct MCV MCH MCHC RDW Plt Count MPV Immature Gran % Neutrophils % Lymphocytes % Monocytes % Eosinophils % Basophils % Nucleated RBC % Absolute Neutrophils Absolute Lymphocytes Absolute Monocytes Absolute Eosinophils Absolute Basophils VBG Lactate Sodium Potassium Chloride Carbon Dioxide Anion Gap BUN Creatinine Est GFR (CKD-EPI 2020) Glucose Calcium Magnesium Total Bilirubin AST ALT Alkaline Phosphatase Troponin I Total Protein Albumin Lipase Urine Color Yellow Urine Clarity Sl Cloudy Urine pH 5.5 Ur Specific [place] 1.020 Urine Protein 30 H Urine Ketones Negative Urine Blood Small H Urine Nitrite Negative Urine Bilirubin Negative Urine Urobilinogen 0.2 Ur Leukocyte Esterase Negative Urine RBC 3-5 H Urine WBC 3-5 Ur Epithelial Cells Few Urine Crystals Moderate Amorphous Urine Bacteria Few Urine Casts 5-10 Hyaline Urine Mucus Negative Ur Culture Indicated? No Urine Glucose Negative COVID-19 Source SARS-CoV-2 (PCR) Last Vital Signs Temp 36.8 C 05/28/22 14:17 Pulse 48 L 05/28/22 18:31 Resp 18 05/28/22 18:32 BP 115/42 L 05/28/22 18:31 Pulse Ox 96 05/28/22 18:32
[2022-05-28] MEDS: MAGNESIUM SULFATE 1 GM/100 ML BAG IVPB (21:56)
[2022-05-28 22:14] LABS: TSH 0.61 uIU/mL (0.36-3.74)
[2022-05-29] VITALS (84 sets, daily range): BP systolic 109–153; BP diastolic 34–113; PULSE 40–135; RESP 11–27; TEMP 36.4–37.3; O2SAT 90–98
--- NOTE | 2022-05-29 | DI.US_ITS ---
Exam(s) US ABDOMEN LIMITED EXAM: US ABDOMEN LIMITED CLINICAL HISTORY: question of cholecystitis TECHNIQUE: Ultrasound abdomen performed using standard protocol. COMPARISON: CT CT ABDOMEN PELVIS WO from 05/28/2022 FINDINGS: Exam is limited by patient body habitus. LIVER: Normal size and echogenicity. No focal liver lesions are seen.. GALLBLADDER: Question of multiple layering gallstones versus shadowing from bowel gas. Mild wall thi ckening. No pericholecystic fluid identified. AGUILAR'S SIGN: Negative. BILIARY SYSTEM: Dilated common duct up to 11 millimeters. It appears to taper into the head of the pa ncreas. No common duct stone is seen. There is mild intrahepatic biliary biliary dilatation.. RIGHT KIDNEY: Normal size. No evidence of renal calculi. Stones were noted on the prior CT not visibl e on this exam. No evidence of hydronephrosis. No suspicious renal mass. No cyst identified. PANCREAS: Mildly dilated pancreatic duct proximally. ABDOMINAL AORTA AND IVC: Visualized portions normal caliber. ASCITES: None seen. IMPRESSION: No definite evidence of acute cholecystitis. There is a question of gallstones versus shadowing from adjacent bowel. There is biliary dilatation but no visible obstructing stone. DATA REPOSITORY:
[2022-05-29] MEDS: REMDESIVIR 200 MG in Normal Saline 250 ML 250 MG IVPB (00:14)
[2022-05-29] MEDS: Dexamethasone 10 MG/ML VIAL IVP (00:14)
[2022-05-29] MEDS: Donepezil 5 MG TAB 10 MG PO ×2 (00:14→19:04)
[2022-05-29] MEDS: Normal Saline 1,000 ML 100 ML IV (00:15)
[2022-05-29] MEDS: metroNIDAZOLE 500 MG/100 ML BAG 100 MG IVPB ×4 (03:51→21:07)
[2022-05-29 05:39] LABS: Lactate 1.2 mmol/L (0.6-1.4)
[2022-05-29 05:41] LABS: Abs Immature Grans 0.02 10^3/uL (0.0-0.06); Absolute Eosinophil Count 0.02 10^3/uL (0.0-0.7); Absolute Lymphocyte Count 0.45 10^3/uL (1.2-3.4); Absolute Monocyte Count 0.14 10^3/uL (0.1-0.8); Absolute Neutrophil Count 2.65 10^3/uL (1.2-6.7); Eosinophils % 0.6; HCT 31.3 % (36.0-46.0); HGB 10.7 g/dL (11.2-15.7); Immature Grans % 0.6; Lymphocytes % 13.7; MCH 27.6 pg (27.0-33.0); MCHC 34.2 % (32.0-36.0); MCV 81 fL (80-95); MPV 10.2 fL (8.0-11.0); Monocytes % 4.3; Neutrophils % 80.8; Platelet Count 143 10^3/uL (130-400); RBC 3.87 10^6/uL (3.93-5.22); RDW 15.1 % (11.7-14.6); RDW-SD 44.5 fL; WBC 3.28 10^3/uL (4.4-10.8)
[2022-05-29] MEDS: Levothyroxine 100 MCG TAB PO (05:42)
[2022-05-29 05:57] LABS: ALT 56 U/L (14-59); AST 117 U/L (15-37); Albumin 3.4 g/dL (3.4-5.0); Alkaline Phosphatase 136 U/L (46-116); Anion Gap 16.9 mmol/L (3-11); BUN 41 mg/dL (7-18); Bilirubin, Total 0.5 mg/dL (0.2-1.0); CO2 20.1 mmol/L (21.0-32.0); CREATININE 2.4 mg/dL (0.55-1.02); Calcium 7.4 mg/dL (8.5-10.1); Chloride 96 mmol/L (98-107); Estimated GFR 19.92 (mL/min/1.73m2); Glucose 124 mg/dL (74-106); Lipase 377 U/L (73-393); Magnesium 1.7 mg/dL (1.8-2.4); Potassium 3.6 mmol/L (3.5-5.1); Sodium 133 mmol/L (136-145); Total Protein 7.1 g/dL (6.4-8.2)
[2022-05-29 06:09] LABS: Troponin I 61 ng/L (<or=60)
[2022-05-29 07:49] LABS: Lab Add On Test DONE
[2022-05-29] MEDS: Metoprolol 12.5 MG TAB PO ×2 (07:52→19:04)
[2022-05-29] MEDS: MAGNESIUM SULFATE 1 GM/100 ML BAG IVPB (07:52)
[2022-05-29] MEDS: dilTIAZem 60 MG TAB PO (07:52)
--- NOTE | 2022-05-29 07:53 | W.INDIABCONS ---
Date of service: 05/29/22 Time of Service: 07:53 Diabetes Inpatient Consult Reason for Visit: Diabetes education DESCRIPTION/ASSESSMENT: Ms. Boggs is admitted with weakness, dehydration. She is Covid positive. She is currently NPO. BMI is 23.1 kg/m2 which is wnl and on the low end of what is desirable for her age. She takes metformin 1000 mg bid. Most recent A1Cs this year were both 6.0. INTERVENTION: Given Ms. Boggs's age and her A1Cs as well as COVID, will defer on evaluating her diabetes education needs. Her A1Cs of 6.0 suggest that she is too tightly managed for her age and comorbidities. Would consider either d/c ing her metformin on discharge or lowering the dose. PLAN: Will continue to follow her PO intake and/or NPO status as well as her weights. Will evaluate nutrition care plan ongoing and adjust as needed. Thank you for the consult. Time Spent in Nutritional Counseling and Treatment: 0
[2022-05-29 08:20] LABS: C-Reactive Protein 1.29 mg/dL (0.0-0.3); Creatine Kinase 410 U/L (26-192)
--- NOTE | 2022-05-29 08:51 | PDOC.CMIN ---
- If Service Date Differs Date of service: 05/29/22 Time of Service: 08:51 Care Management Initial Assess REASON FOR HOSPITALIZATION:: COVID 19, Pneumonia, Choledocolit with cholecystitis PAST MEDICAL HISTORY/PAST SURGICAL HISTORY:: Medical History . GI bleed. HTN (hypertension). Hx of hyperlipidemia. Hypothyroidism PREVIOUS FUNCTIONAL STATUS/SOCIAL/FAMILY SUPPORTS:: Resides in [facility], daughter, Ira as guardian. Requires assistance with most ADLs. Able to feed herself independently. CURRENT FUNCTIONAL STATUS:: Chasidy remains in ICU, per MD anticipate she will remain in ICU due to impulsive behavior and COVID isolation. ADVANCE DIRECTIVES:: DPOA on file, as well as guardianship paperwork. Has patient been provided with info about the portal/API?: No Did the patient sign up for the portal?: No CODE STATUS:: DNR/DNI INSURANCE COVERAGE / FINANCIAL ISSUES:: [facility] PRIMARY CARE PHYSICIAN:: Tariq Tolentino POTENTIAL DISCHARGE NEEDS:: Follow up appointments. PATIENT/FAMILY EDUCATION NEEDS:: Review discharge instructions, discuss Ask Me Three. ANTICIPATED BARRIERS TO DISCHARGE:: None identified at this time. TRANSPORTATION:: Via private vehicle with her daughter. PLAN:: Chasidy remains inpatient, in the ICU at this time. She will continue to be assessed for discharge planning considerations. CM continues to follow.
[2022-05-29 08:55] LABS: Ferritin 250 ng/mL (8-252)
[2022-05-29 08:57] LABS: Procalcitonin 0.3 ng/mL
[2022-05-29] MEDS: PARoxetine 20 MG TAB PO (09:12)
[2022-05-29] MEDS: Lactated Ringers 1,000 ML 100 ML IV (09:12)
--- NOTE | 2022-05-29 09:43 | NUR.NOTE ---
Abdominal ultrasound is commenced in room.Nursing Note:
--- NOTE | 2022-05-29 11:40 | W.PM.PROGNOT ---
Date of Service Date of service: 05/29/22 Time of Service: 09:00 Assessment and Plan Assessment and plan (1) Pneumonia due to COVID-19 virus: Status: Acute Assessment and plan: Not requiring oxygen. Continue remdesivir. D/c dexamethasone. Continue antibiotics (cefepime) given a borderline elevated procalcitonin. Encourage pulmonary toilet. (2) Cholecystitis with cholelithiasis: Status: Acute Assessment and plan: Suspected. General surgery consulted. Await read for ultrasound of gallbladder. NPO Qualifiers: Cholelithiasis location: bile duct Cholecystitis acuity: acute and chronic Biliary obstruction: with biliary obstruction Qualified Code(s): K80.47 - Calculus of bile duct with acute and chronic cholecystitis with obstruction (3) DARYA (acute kidney injury): Status: Acute Assessment and plan: Already improving. Continue cautious IVF today. Does have a very mild elevation of CPK, but doubt that this is the reason for DARYA. (4) Atrial fibrillation: Status: Chronic Assessment and plan: Hold xarelto in anticipation of a possible surgery Qualifiers: Atrial fibrillation type: paroxysmal Qualified Code(s): I48.0 - Paroxysmal atrial fibrillation (5) Elevated troponin I measurement: Status: Acute Assessment and plan: Minimally elevated troponins. Repeat EKG. Suspect demand ischemia in setting of COVID-19 +/- cholecystitis. (6) Diabetes mellitus: Status: Chronic Assessment and plan: Change SSI to q6hrs (7) Alzheimer's dementia: Status: Chronic Assessment and plan: Keep in ICu given impulsive behavior and high risk of possible attempt to elope, exposing patients and staff to COVID-19. C/s palliative care. (8) DVT prophylaxis: Status: Acute Assessment and plan: SCDs while xarelto is on hold (9) Discharge planning issues: Status: Acute Assessment and plan: DNR/DNI. Keep in ICU due to diagnosis of COVID-19 and impulsive behavior Subjective Subjective Interval history since last seen: Ms Boggs, when I saw her, was very focused on the fact that she needed to urinate. She denies dizziness, headache, chest pain, shortness of breath, nausea. She has been on room air. Nursing reports that she has torn out her IV and that she has been impulsive in the room. Exam Narrative Exam Narrative: General: Anxious elderly female who is impulsive, A&Ox2 HEENT: EOMI, MMM Heart: RRR, no m/r/g Lungs: CTAB, on RA Abdomen: soft, nontender, nondistended Extremities: no edema BLEs Objective Last Vital Signs Temp 36.5 C 05/29/22 08:29 Pulse 60 05/29/22 08:29 Resp 13 05/29/22 08:29 BP 116/45 L 05/29/22 08:29 Pulse Ox 94 05/29/22 08:29 Laboratory Results - last 24 hr 05/28/22 05/28/22 05/28/22 15:35 15:50 15:50 WBC 5.20 RBC 4.65 Hgb 12.7 Hct 38.4 MCV 83 MCH 27.3 MCHC 33.1 RDW 15.3 H Plt Count 218 MPV 10.6 Immature Gran % 0.4 Neutrophils % 73.3 Lymphocytes % 16.3 Monocytes % 9.8 Eosinophils % 0.0 Basophils % 0.2 Nucleated RBC % 0.0 Absolute Neutrophils 3.81 Absolute Lymphocytes 0.85 L Absolute Monocytes 0.51 Absolute Eosinophils 0.00 Absolute Basophils 0.01 VBG Lactate Sodium Potassium Chloride Carbon Dioxide Anion Gap BUN Creatinine Est GFR (CKD-EPI 2020) Glucose Calcium Magnesium Ferritin Total Bilirubin AST ALT Alkaline Phosphatase Creatine Kinase Troponin I C-Reactive Protein Total Protein Albumin Lipase 1287 H Procalcitonin TSH Urine Color Urine Clarity Urine pH Ur Specific [place] Urine Protein Urine Ketones Urine Blood Urine Nitrite Urine Bilirubin Urine Urobilinogen Ur Leukocyte Esterase Urine RBC Urine WBC Ur Epithelial Cells Urine Crystals Urine Bacteria Urine Casts Urine Mucus Ur Culture Indicated? Urine Glucose COVID-19 Source Nasal/Nares SARS-CoV-2 (PCR) POSITIVE A* Add-On Test Request 05/28/22 05/28/22 05/28/22 15:50 15:50 15:50 WBC RBC Hgb Hct MCV MCH MCHC RDW Plt Count MPV Immature Gran % Neutrophils % Lymphocytes % Monocytes % Eosinophils % Basophils % Nucleated RBC % Absolute Neutrophils Absolute Lymphocytes Absolute Monocytes Absolute Eosinophils Absolute Basophils VBG Lactate 6.0 H* Sodium 131 L Potassium 3.8 Chloride 89 L Carbon Dioxide 21.0 Anion Gap 21.0 H BUN 42 H Creatinine 3.4 H Est GFR (CKD-EPI 2020) 13.11 Glucose 97 Calcium 8.5 Magnesium 1.7 L Ferritin Total Bilirubin 1.0 AST 277 H ALT 80 H Alkaline Phosphatase 152 H Creatine Kinase Troponin I C-Reactive Protein Total Protein 8.4 H Albumin 4.0 Lipase Procalcitonin TSH Urine Color Urine Clarity Urine pH Ur Specific [place] Urine Protein Urine Ketones Urine Blood Urine Nitrite Urine Bilirubin Urine Urobilinogen Ur Leukocyte Esterase Urine RBC Urine WBC Ur Epithelial Cells Urine Crystals Urine Bacteria Urine Casts Urine Mucus Ur Culture Indicated? Urine Glucose COVID-19 Source SARS-CoV-2 (PCR) Add-On Test Request 05/28/22 05/28/22 05/28/22 15:50 15:50 19:20 WBC RBC Hgb Hct MCV MCH MCHC RDW Plt Count MPV Immature Gran % Neutrophils % Lymphocytes % Monocytes % Eosinophils % Basophils % Nucleated RBC % Absolute Neutrophils Absolute Lymphocytes Absolute Monocytes Absolute Eosinophils Absolute Basophils VBG Lactate Sodium Potassium Chloride Carbon Dioxide Anion Gap BUN Creatinine Est GFR (CKD-EPI 2020) Glucose Calcium Magnesium Ferritin Total Bilirubin AST ALT Alkaline Phosphatase Creatine Kinase Troponin I 95 H* 69 H* C-Reactive Protein Total Protein Albumin Lipase Procalcitonin TSH 0.61 Urine Color Urine Clarity Urine pH Ur Specific [place] Urine Protein Urine Ketones Urine Blood Urine Nitrite Urine Bilirubin Urine Urobilinogen Ur Leukocyte Esterase Urine RBC Urine WBC Ur Epithelial Cells Urine Crystals Urine Bacteria Urine Casts Urine Mucus Ur Culture Indicated? Urine Glucose COVID-19 Source SARS-CoV-2 (PCR) Add-On Test Request 05/28/22 05/28/22 05/29/22 19:20 19:40 05:25 WBC RBC Hgb Hct MCV MCH MCHC RDW Plt Count MPV Immature Gran % Neutrophils % Lymphocytes % Monocytes % Eosinophils % Basophils % Nucleated RBC % Absolute Neutrophils Absolute Lymphocytes Absolute Monocytes Absolute Eosinophils Absolute Basophils VBG Lactate 6.0 H* Sodium 133 L Potassium 3.6 Chloride 96 L Carbon Dioxide 20.1 L Anion Gap 16.9 H BUN 41 H Creatinine 2.4 H D Est GFR (CKD-EPI 2020) 19.92 Glucose 124 H Calcium 7.4 L Magnesium 1.7 L Ferritin Total Bilirubin 0.5 AST 117 H ALT 56 Alkaline Phosphatase 136 H Creatine Kinase Troponin I C-Reactive Protein Total Protein 7.1 Albumin 3.4 Lipase 377 Procalcitonin TSH Urine Color Yellow Urine Clarity Sl Cloudy Urine pH 5.5 Ur Specific [place] 1.020 Urine Protein 30 H Urine Ketones Negative Urine Blood Small H Urine Nitrite Negative Urine Bilirubin Negative Urine Urobilinogen 0.2 Ur Leukocyte Esterase Negative Urine RBC 3-5 H Urine WBC 3-5 Ur Epithelial Cells Few Urine Crystals Moderate Amorphous Urine Bacteria Few Urine Casts 5-10 Hyaline Urine Mucus Negative Ur Culture Indicated? No Urine Glucose Negative COVID-19 Source SARS-CoV-2 (PCR) Add-On Test Request 05/29/22 05/29/22 05/29/22 05:25 05:25 05:25 WBC 3.28 L RBC 3.87 L Hgb 10.7 L D Hct 31.3 L MCV 81 MCH 27.6 MCHC 34.2 RDW 15.1 H Plt Count 143 MPV 10.2 Immature Gran % 0.6 Neutrophils % 80.8 Lymphocytes % 13.7 Monocytes % 4.3 Eosinophils % 0.6 Basophils % 0.0 Nucleated RBC % 0.0 Absolute Neutrophils 2.65 Absolute Lymphocytes 0.45 L Absolute Monocytes 0.14 Absolute Eosinophils 0.02 Absolute Basophils 0.00 VBG Lactate 1.2 Sodium Potassium Chloride Carbon Dioxide Anion Gap BUN Creatinine Est GFR (CKD-EPI 2020) Glucose Calcium Magnesium Ferritin Total Bilirubin AST ALT Alkaline Phosphatase Creatine Kinase Troponin I 61 H C-Reactive Protein Total Protein Albumin Lipase Procalcitonin TSH Urine Color Urine Clarity Urine pH Ur Specific [place] Urine Protein Urine Ketones Urine Blood Urine Nitrite Urine Bilirubin Urine Urobilinogen Ur Leukocyte Esterase Urine RBC Urine WBC Ur Epithelial Cells Urine Crystals Urine Bacteria Urine Casts Urine Mucus Ur Culture Indicated? Urine Glucose COVID-19 Source SARS-CoV-2 (PCR) Add-On Test Request 05/29/22 05/29/22 05/29/22 05:25 05:25 05:25 WBC RBC Hgb Hct MCV MCH MCHC RDW Plt Count MPV Immature Gran % Neutrophils % Lymphocytes % Monocytes % Eosinophils % Basophils % Nucleated RBC % Absolute Neutrophils Absolute Lymphocytes Absolute Monocytes Absolute Eosinophils Absolute Basophils VBG Lactate Sodium Potassium Chloride Carbon Dioxide Anion Gap BUN Creatinine Est GFR (CKD-EPI 2020) Glucose Calcium Magnesium Ferritin 250 Total Bilirubin AST ALT Alkaline Phosphatase Creatine Kinase 410 H Troponin I C-Reactive Protein 1.29 H Total Protein Albumin Lipase Procalcitonin 0.3 TSH Urine Color Urine Clarity Urine pH Ur Specific [place] Urine Protein Urine Ketones Urine Blood Urine Nitrite Urine Bilirubin Urine Urobilinogen Ur Leukocyte Esterase Urine RBC Urine WBC Ur Epithelial Cells Urine Crystals Urine Bacteria Urine Casts Urine Mucus Ur Culture Indicated? Urine Glucose COVID-19 Source SARS-CoV-2 (PCR) Add-On Test Request DONE 05/29/22 05:35 WBC RBC Hgb Hct MCV MCH MCHC RDW Plt Count MPV Immature Gran % Neutrophils % Lymphocytes % Monocytes % Eosinophils % Basophils % Nucleated RBC % Absolute Neutrophils Absolute Lymphocytes Absolute Monocytes Absolute Eosinophils Absolute Basophils VBG Lactate Sodium Potassium Chloride Carbon Dioxide Anion Gap BUN Creatinine Est GFR (CKD-EPI 2020) Glucose Calcium Magnesium Ferritin Total Bilirubin AST ALT Alkaline Phosphatase Creatine Kinase Troponin I Cancelled C-Reactive Protein Total Protein Albumin Lipase Procalcitonin TSH Urine Color Urine Clarity Urine pH Ur Specific [place] Urine Protein Urine Ketones Urine Blood Urine Nitrite Urine Bilirubin Urine Urobilinogen Ur Leukocyte Esterase Urine RBC Urine WBC Ur Epithelial Cells Urine Crystals Urine Bacteria Urine Casts Urine Mucus Ur Culture Indicated? 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
--- NOTE | 2022-05-29 12:00 | RT.EKG_ITS ---
APPROVED REPORT Exam: Resting ECG Reason for Exam: elevated troponin Patient Location: I HR:60 bpm ECG Measurements Heart Rate 60 AXIS AL 176 P 39 QRSd 125 QRS -32 QT 511 T 103 QTc 511 Conclusion Sinus rhythm...normal P axis, V-rate 50- 99 Nonspecific intraventricular conduction delay...QRSd >115mS, not LBBB/RBBB Nonspecific T abnormalities, lateral leads...T <-0.10mV, I aVL V5 V6
[2022-05-29] MEDS: Ipratropium/Albuterol 4 GM 120 PUFF INH IH (12:05)
--- NOTE | 2022-05-29 12:37 | NUR.NOTE ---
RN starts new 22 gauge IV in patient's right wrist and reconnects leads for heart monitoring. Patient pulled her IV out and really does not appreciate the significance of her actions.Nursing Note:
--- NOTE | 2022-05-29 12:39 | NUR.NOTE ---
RN orders insulin pen from pharmacy.Nursing Note:
[2022-05-29] MEDS: Insulin Aspart 300 UNITS/3 ML PEN SC ×2 (13:03→13:13)
[2022-05-29] MEDS: Normal Saline Flush 10 ML SYR ×2 (13:04→18:00)
[2022-05-29] MEDS: Pantoprazole 40 MG VIAL IVP (13:16)
--- NOTE | 2022-05-29 14:19 | SCONE_ITS ---
Date of service: 05/29/22 Time of Service: 14:19 Assessment and Plan Assessment and plan (1) Transaminitis: Status: Acute Assessment and plan: Ms. Boggs is a pleasant 82-year-old female who we were asked to see in regards to her transaminitis and elevated lipase on admission. Her lipase is normal today and her transaminases are coming down. Her bilirubin was never elevated. She did have some mild dilation of her biliary system on CT scan. This finding could be due to her age. With her having been on Paxlivid her transaminitis could have been due to that. Clinically she does not have cholecystitis. I am still still awaiting the results of her ultrasounds. If there is any question after the ultrasound then I think a HIDA scan would be appropriate. If the ultrasound shows any signs of acute cholecystitis I recommend treatment with antibiotics at this time. With the patient being COVID-positive her risk of having pulmonary issues under surgery are increased. If ultrasound is negat javan for any signs of infection I would stop the Flagyl. 35 minutes spent reviewing the chart and seeing the patient and documenting in the chart. History of Present Illness Narrative: Mrs Boggs is a pleasant 82 year old female who presented to the emergency department for chief complaint of generalized weakness.? Patient started having COVID-like symptoms and tested positive on home antigen test with symptoms starting on Wednesday night.? Patient was then started on paxlovid on Wednesday but is continued to have worsening generalized weakness.? Patient saw primary care provider who recommended patient come to the emergency department due to low blood pressure and need of IV fluids.? We were asked to see the patient because of abnormal lab work and CT scan. Her CT scan showed mild by biliary dilatation and dilatation of the common duct. No obstructive stones or masses were identified. Her labs showed a normal white count. Her total bilirubin was normal yesterday. Her lipase was elevated at 1287 it is normal today. Her AST was 117 today it was 277 yesterday. Her ALT was elevated at 80 yesterday it is normal today. Her alk phos was 152 yesterday and is now decreased to 136. She does not complain of any nausea, vomiting or abdominal pain. She has been afebrile. Consults Consult date: 05/29/22 Requesting physician: Cintia Landry Review of Systems Constitutional Constitutional: Reports fatigue, Denies fever(s), Denies headache(s) and Reports weakness Eyes Eyes: Reports change in vision ENT Ears, Nose, Mouth, and Throat: Denies change in voice and Denies headache(s) Cardiovascular Cardiovascular: Denies chest pain, Denies chest pain at rest, Denies irregular heart rhythm, Denies palpitations and Denies dyspnea Respiratory Respiratory: Denies cough and Denies dyspnea Gastrointestinal Gastrointestinal: Reports system reviewed and no additional complaints, except as documented Genitourinary Genitourinary: Denies difficulty voiding and Denies dysuria Musculoskeletal Musculoskeletal: Denies joint swelling Integumentary/Breasts Skin/Breast: Reports system reviewed and no additional complaints, except as documented Neurologic Neurologic: Denies headache(s) and Reports weakness Psychiatric Psychiatric: Reports system reviewed and no additional complaints, except as documented Endocrine Endocrine: Reports fatigue and Denies palpitations Hematologic/Lymphatic Hematologic/Lymphatic: Reports system reviewed and no additional complaints, except as documented PFSH All Active Problems (Updated 05/29/22 @ 14:29 by Alexandra Gonzalez MD) Transaminitis (Acute) Discharge planning issues (Acute) DVT prophylaxis (Acute) COVID-19 (Acute) DARYA (acute kidney injury) (Acute) Elevated troponin I measurement (Acute) Cholecystitis with cholelithiasis (Acute) Pneumonia due to COVID-19 virus (Acute) Positive self-administered antigen test for COVID-19 (Acute) positive home test 05/26/22 Glaucoma (Chronic) Candidal skin infection (Acute) Alzheimer's dementia (Chronic) Atrial fibrillation (Chronic) Congestive heart failure (Chronic) Diabetes mellitus (Chronic) Accidental overdose (Acute) Medical History GI bleed HTN (hypertension) Hx of hyperlipidemia Hypothyroidism Family History Father Heart disease Hypertension Social History Smoking/Tobacco Use Status: Former Tobacco Use Smoking risk assessment performed?: Yes Alcohol Intake: never Drug use: Never Substance use type: does not use Adopted: No Caregiver/Support person: Yes Foster care: No Household members: family Housing: house Number of Children: 2 number of grandchildren: 4 Communication Needs: None Education Level: high school Do you need help understanding health information?: Always current occupation: Retired Pets and animals: Yes (1) Pets and animals: cat(s) Sexually active: No Do you think of yourself as: straight/heterosexual Current gender identity: female What is your relationship status?: How often do you talk on the phone with friends or family?: three or more times per week How often do you get together with friends or relatives?: three or more times per week Do you belong to any clubs or organized social groups?: no Panel score (0-1 are the most socially isolated patients): 1 Debo/Sikh: Scientologist Special debo needs: No Seatbelt use: always Drive intox or ride w/intox bulk delivery 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 Exam Const General: cooperative, comfortable and no acute distress Nutritional Appearance: average body habitus HENMT Head: normocephalic and atraumatic Resp Effort & Inspection: normal respiratory effort Auscultation: clear to auscultation bilaterally Cardio Rate: regular rate Rhythm: regular rhythm GI Palpation: soft, no hepatosplenomegaly and nontender Results Last Vital Signs Temp 97.7 F 05/29/22 13:46 Pulse 57 L 05/29/22 13:46 Resp 23 05/29/22 13:46 BP 148/53 H 05/29/22 13:46 Pulse Ox 94 05/29/22 08:29 Labs Result diagrams: 05/29/22 05:25 05/29/22 05:25 Labs: Laboratory Results - last 24 hr 05/28/22 05/28/22 05/28/22 15:35 15:50 15:50 WBC 5.20 RBC 4.65 Hgb 12.7 Hct 38.4 MCV 83 MCH 27.3 MCHC 33.1 RDW 15.3 H Plt Count 218 MPV 10.6 Immature Gran % 0.4 Neutrophils % 73.3 Lymphocytes % 16.3 Monocytes % 9.8 Eosinophils % 0.0 Basophils % 0.2 Nucleated RBC % 0.0 Absolute Neutrophils 3.81 Absolute Lymphocytes 0.85 L Absolute Monocytes 0.51 Absolute Eosinophils 0.00 Absolute Basophils 0.01 VBG Lactate Sodium Potassium Chloride Carbon Dioxide Anion Gap BUN Creatinine Est GFR (CKD-EPI 2020) Glucose Calcium Magnesium Ferritin Total Bilirubin AST ALT Alkaline Phosphatase Creatine Kinase Troponin I C-Reactive Protein Total Protein Albumin Lipase 1287 H Procalcitonin TSH Urine Color Urine Clarity Urine pH Ur Specific [place] Urine Protein Urine Ketones Urine Blood Urine Nitrite Urine Bilirubin Urine Urobilinogen Ur Leukocyte Esterase Urine RBC Urine WBC Ur Epithelial Cells Urine Crystals Urine Bacteria Urine Casts Urine Mucus Ur Culture Indicated? Urine Glucose COVID-19 Source Nasal/Nares SARS-CoV-2 (PCR) POSITIVE A* Add-On Test Request 05/28/22 05/28/22 05/28/22 15:50 15:50 15:50 WBC RBC Hgb Hct MCV MCH MCHC RDW Plt Count MPV Immature Gran % Neutrophils % Lymphocytes % Monocytes % Eosinophils % Basophils % Nucleated RBC % Absolute Neutrophils Absolute Lymphocytes Absolute Monocytes Absolute Eosinophils Absolute Basophils VBG Lactate 6.0 H* Sodium 131 L Potassium 3.8 Chloride 89 L Carbon Dioxide 21.0 Anion Gap 21.0 H BUN 42 H Creatinine 3.4 H Est GFR (CKD-EPI 2020) 13.11 Glucose 97 Calcium 8.5 Magnesium 1.7 L Ferritin Total Bilirubin 1.0 AST 277 H ALT 80 H Alkaline Phosphatase 152 H Creatine Kinase Troponin I C-Reactive Protein Total Protein 8.4 H Albumin 4.0 Lipase Procalcitonin TSH Urine Color Urine Clarity Urine pH Ur Specific [place] Urine Protein Urine Ketones Urine Blood Urine Nitrite Urine Bilirubin Urine Urobilinogen Ur Leukocyte Esterase Urine RBC Urine WBC Ur Epithelial Cells Urine Crystals Urine Bacteria Urine Casts Urine Mucus Ur Culture Indicated? Urine Glucose COVID-19 Source SARS-CoV-2 (PCR) Add-On Test Request 05/28/22 05/28/22 05/28/22 15:50 15:50 19:20 WBC RBC Hgb Hct MCV MCH MCHC RDW Plt Count MPV Immature Gran % Neutrophils % Lymphocytes % Monocytes % Eosinophils % Basophils % Nucleated RBC % Absolute Neutrophils Absolute Lymphocytes Absolute Monocytes Absolute Eosinophils Absolute Basophils VBG Lactate Sodium Potassium Chloride Carbon Dioxide Anion Gap BUN Creatinine Est GFR (CKD-EPI 2020) Glucose Calcium Magnesium Ferritin Total Bilirubin AST ALT Alkaline Phosphatase Creatine Kinase Troponin I 95 H* 69 H* C-Reactive Protein Total Protein Albumin Lipase Procalcitonin TSH 0.61 Urine Color Urine Clarity Urine pH Ur Specific [place] Urine Protein Urine Ketones Urine Blood Urine Nitrite Urine Bilirubin Urine Urobilinogen Ur Leukocyte Esterase Urine RBC Urine WBC Ur Epithelial Cells Urine Crystals Urine Bacteria Urine Casts Urine Mucus Ur Culture Indicated? Urine Glucose COVID-19 Source SARS-CoV-2 (PCR) Add-On Test Request 05/28/22 05/28/22 05/29/22 19:20 19:40 05:25 WBC RBC Hgb Hct MCV MCH MCHC RDW Plt Count MPV Immature Gran % Neutrophils % Lymphocytes % Monocytes % Eosinophils % Basophils % Nucleated RBC % Absolute Neutrophils Absolute Lymphocytes Absolute Monocytes Absolute Eosinophils Absolute Basophils VBG Lactate 6.0 H* Sodium 133 L Potassium 3.6 Chloride 96 L Carbon Dioxide 20.1 L Anion Gap 16.9 H BUN 41 H Creatinine 2.4 H D Est GFR (CKD-EPI 2020) 19.92 Glucose 124 H Calcium 7.4 L Magnesium 1.7 L Ferritin Total Bilirubin 0.5 AST 117 H ALT 56 Alkaline Phosphatase 136 H Creatine Kinase Troponin I C-Reactive Protein Total Protein 7.1 Albumin 3.4 Lipase 377 Procalcitonin TSH Urine Color Yellow Urine Clarity Sl Cloudy Urine pH 5.5 Ur Specific [place] 1.020 Urine Protein 30 H Urine Ketones Negative Urine Blood Small H Urine Nitrite Negative Urine Bilirubin Negative Urine Urobilinogen 0.2 Ur Leukocyte Esterase Negative Urine RBC 3-5 H Urine WBC 3-5 Ur Epithelial Cells Few Urine Crystals Moderate Amorphous Urine Bacteria Few Urine Casts 5-10 Hyaline Urine Mucus Negative Ur Culture Indicated? No Urine Glucose Negative COVID-19 Source SARS-CoV-2 (PCR) Add-On Test Request 05/29/22 05/29/22 05/29/22 05:25 05:25 05:25 WBC 3.28 L RBC 3.87 L Hgb 10.7 L D Hct 31.3 L MCV 81 MCH 27.6 MCHC 34.2 RDW 15.1 H Plt Count 143 MPV 10.2 Immature Gran % 0.6 Neutrophils % 80.8 Lymphocytes % 13.7 Monocytes % 4.3 Eosinophils % 0.6 Basophils % 0.0 Nucleated RBC % 0.0 Absolute Neutrophils 2.65 Absolute Lymphocytes 0.45 L Absolute Monocytes 0.14 Absolute Eosinophils 0.02 Absolute Basophils 0.00 VBG Lactate 1.2 Sodium Potassium Chloride Carbon Dioxide Anion Gap BUN Creatinine Est GFR (CKD-EPI 2020) Glucose Calcium Magnesium Ferritin Total Bilirubin AST ALT Alkaline Phosphatase Creatine Kinase Troponin I 61 H C-Reactive Protein Total Protein Albumin Lipase Procalcitonin TSH Urine Color Urine Clarity Urine pH Ur Specific [place] Urine Protein Urine Ketones Urine Blood Urine Nitrite Urine Bilirubin Urine Urobilinogen Ur Leukocyte Esterase Urine RBC Urine WBC Ur Epithelial Cells Urine Crystals Urine Bacteria Urine Casts Urine Mucus Ur Culture Indicated? Urine Glucose COVID-19 Source SARS-CoV-2 (PCR) Add-On Test Request 05/29/22 05/29/22 05/29/22 05:25 05:25 05:25 WBC RBC Hgb Hct MCV MCH MCHC RDW Plt Count MPV Immature Gran % Neutrophils % Lymphocytes % Monocytes % Eosinophils % Basophils % Nucleated RBC % Absolute Neutrophils Absolute Lymphocytes Absolute Monocytes Absolute Eosinophils Absolute Basophils VBG Lactate Sodium Potassium Chloride Carbon Dioxide Anion Gap BUN Creatinine Est GFR (CKD-EPI 2020) Glucose Calcium Magnesium Ferritin 250 Total Bilirubin AST ALT Alkaline Phosphatase Creatine Kinase 410 H Troponin I C-Reactive Protein 1.29 H Total Protein Albumin Lipase Procalcitonin 0.3 TSH Urine Color Urine Clarity Urine pH Ur Specific [place] Urine Protein Urine Ketones Urine Blood Urine Nitrite Urine Bilirubin Urine Urobilinogen Ur Leukocyte Esterase Urine RBC Urine WBC Ur Epithelial Cells Urine Crystals Urine Bacteria Urine Casts Urine Mucus Ur Culture Indicated? Urine Glucose COVID-19 Source SARS-CoV-2 (PCR) Add-On Test Request DONE 05/29/22 05:35 WBC RBC Hgb Hct MCV MCH MCHC RDW Plt Count MPV Immature Gran % Neutrophils % Lymphocytes % Monocytes % Eosinophils % Basophils % Nucleated RBC % Absolute Neutrophils Absolute Lymphocytes Absolute Monocytes Absolute Eosinophils Absolute Basophils VBG Lactate Sodium Potassium Chloride Carbon Dioxide Anion Gap BUN Creatinine Est GFR (CKD-EPI 2020) Glucose Calcium Magnesium Ferritin Total Bilirubin AST ALT Alkaline Phosphatase Creatine Kinase Troponin I Cancelled C-Reactive Protein Total Protein Albumin Lipase Procalcitonin TSH Urine Color Urine Clarity Urine pH Ur Specific [place] Urine Protein Urine Ketones Urine Blood Urine Nitrite Urine Bilirubin Urine Urobilinogen Ur Leukocyte Esterase Urine RBC Urine WBC Ur Epithelial Cells Urine Crystals Urine Bacteria Urine Casts Urine Mucus Ur Culture Indicated? Urine Glucose COVID-19 Source SARS-CoV-2 (PCR) Add-On Test Request Imaging Abdomen CT scan report/results: report reviewed and image reviewed Abdominal ultrasound report/results: image reviewed
--- NOTE | 2022-05-29 14:37 | NUR.NOTE ---
RN sends SNPP message to respiratory therapist to peform EKG on patient.Nursing Note:
[2022-05-29] MEDS: QUEtiapine 25 MG TAB 12.5 MG PO (16:39)
--- NOTE | 2022-05-29 17:06 | NUR.NOTE ---
I spoke with Dr Lnadry regarding the patient having difficulty maintaining IV access. We considered the options and risks of using a larger IV line and the patient pulling it out. Dr. Landry states the patient needs IV meds and wants to have IV access. I also spoke with the patient's daughter Ira Winter and explained the limitations of the current peripheral IV access, the possible increased risk if the patient removes a larger line. Ira states she understands the risks and wants us to proceed with whatever advanced IV access we need. Nursing supervisor process testing was notified and anesthesia was paged. I spoke with Claudia Cleaning CRNA on placing a midline and she is going to speak with Dr. Landry directly on the best line choice. The patient has been pulling on her IVs despite nurses monitoring and having the site well protected. Dr. Landry is also trialing the patient on Seroquel 12.5 mg to see if it decreases her agitation. Claudia Cleaning CRNA called back after speaking with Dr. Landry and they have agreed to not place a more invasive line at this time until the patient is less agitated or until it is less likely to be removed. The goal is to place and maintain a peripheral line. Nursing Note:
[2022-05-29] MEDS: CEFEPIME 1 GM in Normal Saline 50 ML IVPB (18:59)
[2022-05-29] MEDS: Atorvastatin 40 MG TAB PO (21:06)
[2022-05-29] MEDS: REMDESIVIR 100 MG in Normal Saline 250 ML 250 MG IVPB (21:07)
[2022-05-30] VITALS (21 sets, daily range): BP systolic 108–146; BP diastolic 52–86; PULSE 56–63; RESP 10–23; TEMP 36.8–37.3; O2SAT 96–98
[2022-05-30] MEDS: Insulin Aspart 300 UNITS/3 ML PEN SC ×2 (01:05→17:48)
[2022-05-30] MEDS: metroNIDAZOLE 500 MG/100 ML BAG 100 MG IVPB (04:26)
[2022-05-30] MEDS: Levothyroxine 100 MCG TAB PO (06:28)
[2022-05-30] MEDS: CEFEPIME 1 GM in Normal Saline 50 ML IVPB (06:28)
[2022-05-30 06:43] LABS: Absolute Lymphocyte Count 0.48 10^3/uL (1.2-3.4); Absolute Neutrophil Count 2.26 10^3/uL (1.2-6.7); HCT 29.8 % (36.0-46.0); Lymphocytes % 15.8; MCH 27.2 pg (27.0-33.0); MCHC 33.6 % (32.0-36.0); MCV 81 fL (80-95); MPV 10.7 fL (8.0-11.0); Monocytes % 9.9; Neutrophils % 74.3; Platelet Count 149 10^3/uL (130-400); RBC 3.68 10^6/uL (3.93-5.22); RDW 14.6 % (11.7-14.6); RDW-SD 43.6 fL; WBC 3.04 10^3/uL (4.4-10.8)
[2022-05-30 06:50] LABS: Prothrombin Time 10.1 sec (9.3-11.0)
[2022-05-30 07:09] LABS: ALT 36 U/L (14-59); AST 49 U/L (15-37); Albumin 3.2 g/dL (3.4-5.0); Alkaline Phosphatase 114 U/L (46-116); Anion Gap 15.6 mmol/L (3-11); BUN 33 mg/dL (7-18); Bilirubin, Direct 0.1 mg/dL (0.0-0.2); Bilirubin, Total 0.4 mg/dL (0.2-1.0); C-Reactive Protein 1.36 mg/dL (0.0-0.3); CO2 22.4 mmol/L (21.0-32.0); CREATININE 1.3 mg/dL (0.55-1.02); Calcium 8.2 mg/dL (8.5-10.1); Chloride 96 mmol/L (98-107); Creatine Kinase 280 U/L (26-192); Estimated GFR 41.57 (mL/min/1.73m2); Glucose 147 mg/dL (74-106); Magnesium 1.8 mg/dL (1.8-2.4); Potassium 3.1 mmol/L (3.5-5.1); Sodium 134 mmol/L (136-145)
[2022-05-30 07:17] LABS: D-Dimer 1286 ng/mlFEU (<500)
[2022-05-30] MEDS: Metoprolol 12.5 MG TAB PO ×2 (07:24→21:46)
[2022-05-30] MEDS: PARoxetine 20 MG TAB PO (07:25)
[2022-05-30] MEDS: Ipratropium/Albuterol 4 GM 120 PUFF INH IH ×3 (07:26→15:34)
--- NOTE | 2022-05-30 07:58 | NUR.NOTE ---
Day shift RN gives patient her 06:00 Levothyroxine. Patient pulls out IV and EKG leads which she refuses. Last remaining IV is wrapped with clean and patient educated on importance of keeping IV's in place. Patient's short term memory is less than 5 minutes. RN orders new Combivent inhaler. RN cleans room. Patient up out of bed to void and is stable on her feet.Nursing Note:
[2022-05-30] MEDS: Potassium Chloride 20 MEQ TABCR 40 MEQ PO ×2 (10:13→18:07)
--- NOTE | 2022-05-30 10:32 | PT.INIE ---
PT Notes Visit Reasons: Covid 19,Pneumonia,Choledocolithiasis with Physical Therapy Inpatient Initial Evaluation Date: 05/30/22 Referring Doctor: Cintia Tompkins MD PT Orders: PT CONSULT: Limited Ability Precautions: Fall. Standard. COVID-19+ droplet precautions Patient Profile/Admitting Diagnosis: Chasidy is an 82 yo female that presented to the ER on 05/28/22 for weakness and worsening symptoms following COVID-19 positive on 05/25/22. She has pneumonia and dementia. Being kept in ICU due to impulsive behaviors for better monitoring. PMHX: See EMR Social History/Home Situation: Lives with daughter whom is guardian. Patient indicates stairs at home, but unsure. Equipment Owned/DME: Unknown Subjective: Cleared by nursing to see patient and patient is agreeable to PT. Patient is resting in bed at time of consult. She references her mothers home several times or her mother having a walker. Unclear on patient living arrangements and equipment. Objective: General Observation: Pleasant, but mildly confused. Repeats self several times. Mental Status: A&O to self Pain: None reported ROM: Right Upper Extremity: Shoulder Flexion Mild. Shoulder abduction Mild. Elbow flexion WFL. Wrist flexion WFL. Opening and closing of hand WFL. Left Upper Extremity: Shoulder Flexion Mild. Shoulder abduction Mild. Elbow flexion WFL. Wrist flexion WFL. Opening and closing of hand WFL. Right Lower Extremity: Hip flexion WFL. Hip abduction WFL. Knee flexion WFL. Ankle dorsiflexion WFL. Ankle plantarflexion WFL. Left Lower Extremity: Hip flexion WFL. Hip abduction WFL. Knee flexion WFL. Ankle dorsiflexion WFL. Ankle plantarflexion WFL. Strength: Right Upper Extremity: Shoulder flexors 4/5. Shoulder abductors 4/5. Elbow flexors 5-/5. Elbow extensors 4/5. Stave Log Cut Off Saw Operator strong. Left Upper Extremity: Shoulder flexors 4/5. Shoulder abductors 4/5. Elbow flexors 5/5. Elbow extensors 5/5. Stave Log Cut Off Saw Operator strong. Right Lower Extremity: Hip flexors 5/5. Knee flexors 5/5. Knee extensors 5/5. Ankle dorsiflexors 5/5. Ankle plantarflexors 5/5. Left Lower Extremity: Hip flexors 5/5. Knee flexors 5/5. Knee extensors 5/5. Ankle dorsiflexors 5/5. Ankle plantarflexors 5/5. Sensation: Intact as to pain and pressure on bilateral lower extremities. Bed Mobility/Transfers: Rolling: Independent Supine to sit: Min A Sit to supine: Independent Sit to stand: Independent Stand to sit: Independent Gait: Ambulated 15 ft in room with FWW, supervision Balance: Static Sitting: Good Dynamic Sitting: Fair Static Standing: Good Dynamic Standing: Fair Special Tests: Mobility Limitations Standardized Measure [facility] AM-PAC 6 clicks Basic Mobility Inpatient Short Form: Raw Score: 20 CMS Score: 35% Informed Consent/Education: Patient instructed in purpose of PT consult and plan of care. Assessment: Patient presents with clinical signs and symptoms consistent with current/admitting diagnoses that have resulted to mobility limitations, gait instability, generalized weakness, and impairment of motor control as demonstrated by the following impairment level findings: 1. Decreased strength to shoulder major muscle groups 2. Impaired activity tolerance 3. Limitation of joint range of motion in shoulders Impairments are contributing to the following functional limitations: 1. Increase completion time for mobility ADL performance 2. Increased fall risk 3. Inability to negotiate steps alone safely Patient seems to be safe with baseline mobility. Patient is assessed as a Moderate complexity based on the following: History: 82 year old female with impairment level findings, functional limitations, and past medical history as indicated above Examination: Demonstrable impairment in strength, balance, and mobility level with underlying impairments and functional limitations as documented above Presentation: Evolving Decision Making: Moderate complexity Plan of Care/Treatment Plan: Evaluation only, no acute care PT needs. Discharge Plan DISCHARGE RECOMMENDATIONS: Home with no services TREATMENT CODE/TIME: 10:00-10:24 (24 minutes), [id number] Thank you for the opportunity to participate in the care of this patient. Cynthia Gabriel, PT, DPT, O[facility] [place], [place]
--- NOTE | 2022-05-30 10:54 | PGE_ITS ---
Date of Service Date of service: 05/30/22 Time of Service: 10:15 Assessment and Plan Assessment and plan (1) Pneumonia due to COVID-19 virus: Status: Acute Assessment and plan: Not requiring oxygen. Continue remdesivir. Continue antibiotics (cefepime) given a borderline elevated procalcitonin. Encourage pulmonary toilet. (2) Cholecystitis with cholelithiasis: Status: Suspected Assessment and plan: US not showing a clear acute cholecystitis. Discussed with Dr Gonzalez - will plan on an MRCP tomorrow. Ok to d/c flagyl. Qualifiers: Cholelithiasis location: bile duct Cholecystitis acuity: acute and chronic Biliary obstruction: with biliary obstruction Qualified Code(s): K80.47 - Calculus of bile duct with acute and chronic cholecystitis with obstruction (3) DARYA (acute kidney injury): Status: Acute Assessment and plan: Already improving. Cr is near baseline. Off of IVF. Mild elevation of CPK has resolved. Recheck BMP in am. (4) Atrial fibrillation: Status: Chronic Assessment and plan: Continue to hold xarelto for now. Qualifiers: Atrial fibrillation type: paroxysmal Qualified Code(s): I48.0 - Paroxysmal atrial fibrillation (5) Elevated troponin I measurement: Status: Acute Assessment and plan: Minimally elevated troponins. Repeat EKG. Suspect demand ischemia in setting of COVID-19 +/- cholecystitis. (6) Diabetes mellitus: Status: Chronic Assessment and plan: Continue SSI. (7) Alzheimer's dementia: Status: Chronic Assessment and plan: Keep in ICu given impulsive behavior and high risk of possible attempt to elope, exposing patients and staff to COVID-19. C/s palliative care. (8) DVT prophylaxis: Status: Acute Assessment and plan: xarelto is on hold Will add lovenox SC for now. (9) Discharge planning issues: Status: Acute Assessment and plan: DNR/DNI. Keep in ICU due to diagnosis of COVID-19 and impulsive behavior Subjective Subjective Interval history since last seen: Ms Boggs continues to be impulsive and tears out her IVs. She rested well after receiving seroquel last night. Her nursing feels she does not need it right now. She has not required oxygen. The patient was not personally interviewed as she was working with PT, is COVID- 19 positive and is medically stable. Her exam today happened via the glass door of her room in the ICU. Exam Narrative Exam Narrative: General: Anxious elderly female, working with physical therapy in her room HEENT: EOMI Heart: not auscultated Lungs: nonlabored breathing Abdomen: soft, nontender, nondistended Extremities: no edema BLEs Objective Last Vital Signs Temp 36.9 C 05/30/22 10:04 Pulse 61 05/30/22 10:04 Resp 19 05/30/22 10:04 BP 118/54 L 05/30/22 10:04 Pulse Ox 97 05/30/22 10:04 Laboratory Results - last 24 hr 05/30/22 05/30/22 05/30/22 05:23 05:23 05:23 WBC 3.04 L RBC 3.68 L Hgb 10.0 L Hct 29.8 L MCV 81 MCH 27.2 MCHC 33.6 RDW 14.6 Plt Count 149 MPV 10.7 Immature Gran % 0.0 Neutrophils % 74.3 Lymphocytes % 15.8 Monocytes % 9.9 Eosinophils % 0.0 Basophils % 0.0 Nucleated RBC % 0.0 Absolute Neutrophils 2.26 Absolute Lymphocytes 0.48 L Absolute Monocytes 0.30 Absolute Eosinophils 0.00 Absolute Basophils 0.00 PT 10.1 INR 1.0 D-Dimer 1286 H Sodium 134 L Potassium 3.1 L Chloride 96 L Carbon Dioxide 22.4 Anion Gap 15.6 H BUN 33 H Creatinine 1.3 H D Est GFR (CKD-EPI 2020) 41.57 Glucose 147 H Calcium 8.2 L Magnesium 1.8 Total Bilirubin 0.4 Conjugated Bilirubin 0.1 AST 49 H ALT 36 Alkaline Phosphatase 114 Creatine Kinase 280 H C-Reactive Protein 1.36 H Total Protein 7.0 Albumin 3.2 L
--- NOTE | 2022-05-30 11:14 | W.PM.PROGNOT ---
Date of Service Date of service: 05/30/22 Time of Service: 11:14 Assessment and Plan Assessment and plan (1) Transaminitis: Status: Acute Assessment and plan: US showed narrowing at the Pancreas. No mass was noted. Recommend MRCP for completeness of workup. Continue antibiotics Subjective Subjective Interval history since last seen: Patient not seen today. US reviewed. There is mention of narrowing of her CBD at the head of the pancreas. No mass mentioned. No stones in the Gallbladder or ducts. Per nursing staff she is not complaining of abdominal pain and is eating without N/V. Objective Last Vital Signs Temp 98.4 F 05/30/22 10:04 Pulse 61 05/30/22 10:04 Resp 19 05/30/22 10:04 BP 118/54 L 05/30/22 10:04 Pulse Ox 97 05/30/22 10:04 Laboratory Results - last 24 hr 05/30/22 05/30/22 05/30/22 05:23 05:23 05:23 WBC 3.04 L RBC 3.68 L Hgb 10.0 L Hct 29.8 L MCV 81 MCH 27.2 MCHC 33.6 RDW 14.6 Plt Count 149 MPV 10.7 Immature Gran % 0.0 Neutrophils % 74.3 Lymphocytes % 15.8 Monocytes % 9.9 Eosinophils % 0.0 Basophils % 0.0 Nucleated RBC % 0.0 Absolute Neutrophils 2.26 Absolute Lymphocytes 0.48 L Absolute Monocytes 0.30 Absolute Eosinophils 0.00 Absolute Basophils 0.00 PT 10.1 INR 1.0 D-Dimer 1286 H Sodium 134 L Potassium 3.1 L Chloride 96 L Carbon Dioxide 22.4 Anion Gap 15.6 H BUN 33 H Creatinine 1.3 H D Est GFR (CKD-EPI 2020) 41.57 Glucose 147 H Calcium 8.2 L Magnesium 1.8 Total Bilirubin 0.4 Conjugated Bilirubin 0.1 AST 49 H ALT 36 Alkaline Phosphatase 114 Creatine Kinase 280 H C-Reactive Protein 1.36 H Total Protein 7.0 Albumin 3.2 L
[2022-05-30] MEDS: Pantoprazole 40 MG VIAL IVP (12:09)
[2022-05-30] MEDS: Enoxaparin 40 MG/0.4 ML SYR SC (12:09)
[2022-05-30] MEDS: Normal Saline Flush 10 ML SYR (12:39)
--- NOTE | 2022-05-30 14:40 | NUR.NOTE ---
RN gives patient a cup of chocolate ice cream and a cup of gingerale on ice. Patient has been requesting ice cream. Patient eats all of the ice cream.Nursing Note:
[2022-05-30] MEDS: QUEtiapine 25 MG TAB 12.5 MG PO (18:14)
--- NOTE | 2022-05-30 18:21 | NUR.NOTE ---
When I went to start 1800 cefepime, i discovered the pt had pulled her IV out. Pt is currently refusing to allow me to start another IV at this time. I just had one the other day. I explained to the pt that we needed one in order to give her IV antibiotics for covid and pneumonia but she continued to decline. Nursing Note:
[2022-05-30] MEDS: Donepezil 5 MG TAB 10 MG PO (21:46)
[2022-05-30] MEDS: Atorvastatin 40 MG TAB PO (21:46)
--- NOTE | 2022-05-30 22:23 | NUR.NOTE ---
I was able to get HS meds into patient, though some were lat. However, she is declining a finger stick and IV restart at this time. Nursing Note:
[2022-05-31] VITALS (10 sets, daily range): BP systolic 124–147; BP diastolic 54–67; PULSE 54–64; RESP 18–20; TEMP 36–36.6; O2SAT 96–99
[2022-05-31] MEDS: Levothyroxine 100 MCG TAB PO (05:21)
[2022-05-31 06:42] LABS: Abs Immature Grans 0.01 10^3/uL (0.0-0.06); Absolute Eosinophil Count 0.02 10^3/uL (0.0-0.7); Absolute Lymphocyte Count 0.89 10^3/uL (1.2-3.4); Absolute Monocyte Count 0.49 10^3/uL (0.1-0.8); Absolute Neutrophil Count 2.96 10^3/uL (1.2-6.7); Eosinophils % 0.5; HCT 30.9 % (36.0-46.0); HGB 10.5 g/dL (11.2-15.7); Immature Grans % 0.2; Lymphocytes % 20.4; MCH 27.3 pg (27.0-33.0); MCV 81 fL (80-95); MPV 11.6 fL (8.0-11.0); Monocytes % 11.2; Neutrophils % 67.7; Platelet Count 147 10^3/uL (130-400); RBC 3.84 10^6/uL (3.93-5.22); RDW 14.9 % (11.7-14.6); RDW-SD 43.6 fL; WBC 4.37 10^3/uL (4.4-10.8)
[2022-05-31 06:50] LABS: Anion Gap 9.7 mmol/L (3-11); BUN 30 mg/dL (7-18); CO2 25.3 mmol/L (21.0-32.0); CREATININE 1.1 mg/dL (0.55-1.02); Chloride 102 mmol/L (98-107); Glucose 117 mg/dL (74-106); Magnesium 1.8 mg/dL (1.8-2.4); Potassium 4.2 mmol/L (3.5-5.1); Sodium 137 mmol/L (136-145)
[2022-05-31] MEDS: Ipratropium/Albuterol 4 GM 120 PUFF INH IH ×4 (08:51→21:00)
[2022-05-31] MEDS: PARoxetine 20 MG TAB PO (08:53)
[2022-05-31] MEDS: Metoprolol 12.5 MG TAB PO ×2 (08:53→21:23)
[2022-05-31] MEDS: Enoxaparin 40 MG/0.4 ML SYR SC (13:04)
[2022-05-31] MEDS: Cefuroxime 500 MG TAB PO ×2 (13:04→21:23)
--- NOTE | 2022-05-31 17:22 | W.PM.PROGNOT ---
Date of Service Date of service: 05/31/22 Time of Service: 17:25 Assessment and Plan Assessment and plan (1) Pneumonia due to COVID-19 virus: Status: Acute Assessment and plan: Not requiring oxygen. Continue remdesivir. Continue antibiotics (cefepime) given a borderline elevated procalcitonin. Encourage pulmonary toilet. (2) Cholecystitis with cholelithiasis: Status: Suspected Assessment and plan: US not showing a clear acute cholecystitis. Discussed with Dr Gonzalez - will plan on an MRCP tomorrow. Qualifiers: Cholelithiasis location: bile duct Cholecystitis acuity: acute and chronic Biliary obstruction: with biliary obstruction Qualified Code(s): K80.47 - Calculus of bile duct with acute and chronic cholecystitis with obstruction (3) DARYA (acute kidney injury): Status: Acute Assessment and plan: Creatinine improved to 1.1. Off of IVF. Mild elevation of CPK has resolved. (4) Atrial fibrillation: Status: Chronic Assessment and plan: Continue to hold xarelto for now. Qualifiers: Atrial fibrillation type: paroxysmal Qualified Code(s): I48.0 - Paroxysmal atrial fibrillation (5) Elevated troponin I measurement: Status: Acute Assessment and plan: Minimally elevated troponins. Suspect demand ischemia in setting of COVID-19 +/- cholecystitis. (6) Diabetes mellitus: Status: Chronic Assessment and plan: Continue SSI. Controlled. (7) Alzheimer's dementia: Status: Chronic Assessment and plan: Keep in ICu given impulsive behavior and high risk of possible attempt to elope, exposing patients and staff to COVID-19. C/s palliative care. (8) DVT prophylaxis: Status: Acute Assessment and plan: xarelto is on hold lovenox SC for now. (9) Discharge planning issues: Status: Acute Assessment and plan: DNR/DNI. Subjective Subjective Patient reports: no new complaints and afebrile; denies shortness of breath Exam Narrative Exam Narrative: General: Anxious elderly female, cleaning up with nurse in room. HEENT: sclera clear. Heart: not auscultated Lungs: nonlabored breathing Abdomen: soft, nontender, nondistended Extremities: no edema BLEs Objective Last Vital Signs Temp 36.6 C 05/31/22 16:25 Pulse 64 05/31/22 16:25 Resp 18 05/31/22 16:25 BP 124/67 05/31/22 08:06 Pulse Ox 99 05/31/22 16:25 Laboratory Results - last 24 hr 05/31/22 05/31/22 05:22 05:22 WBC 4.37 L RBC 3.84 L Hgb 10.5 L Hct 30.9 L MCV 81 MCH 27.3 MCHC 34.0 RDW 14.9 H Plt Count 147 MPV 11.6 H Immature Gran % 0.2 Neutrophils % 67.7 Lymphocytes % 20.4 Monocytes % 11.2 Eosinophils % 0.5 Basophils % 0.0 Nucleated RBC % 0.0 Absolute Neutrophils 2.96 Absolute Lymphocytes 0.89 L Absolute Monocytes 0.49 Absolute Eosinophils 0.02 Absolute Basophils 0.00 Sodium 137 Potassium 4.2 D Chloride 102 Carbon Dioxide 25.3 Anion Gap 9.7 BUN 30 H Creatinine 1.1 H Est GFR (CKD-EPI 2020) 50.80 Glucose 117 H Calcium 9.0 Magnesium 1.8
[2022-05-31] MEDS: Insulin Aspart 300 UNITS/3 ML PEN SC (18:04)
[2022-05-31] MEDS: Atorvastatin 40 MG TAB PO (21:23)
[2022-05-31] MEDS: Donepezil 5 MG TAB 10 MG PO (21:23)
[2022-06-01 05:00] VITALS: RESP 20; TEMP 36.6
[2022-06-01] MEDS: Levothyroxine 100 MCG TAB PO (05:33)
[2022-06-01 06:07] LABS: Vitamin D 25 Total 41.3 ng/mL (30-100)
[2022-06-01 06:36] LABS: C-Reactive Protein 0.53 mg/dL (0.0-0.3)
[2022-06-01 07:04] LABS: D-Dimer 712 ng/mlFEU (<500)
[2022-06-01] MEDS: Ipratropium/Albuterol 4 GM 120 PUFF INH IH (07:42)
[2022-06-01 08:30] VITALS: BP 151/71; PULSE 60; RESP 18; TEMP 36.5; O2SAT 96
[2022-06-01 08:34] VITALS: BP 151/71; PULSE 62
[2022-06-01 08:35] VITALS: O2SAT 96
--- NOTE | 2022-06-01 09:21 | DSE_ITS ---
Date of service: 06/01/22 Time of Service: 09:21 DS: Diagnosis Discharge Diagnosis (1) Pneumonia due to COVID-19 virus: Status: Acute Asessment and Plan: On admission, Remdesivir was initiated. She initially required supplemental O2 but readily transitioned back to RA. Because of a borderline elevated procalcitonin, cefepime was initiated, then transitioned to po Ceftin. She will complete a course of Ceftin as outpt. (2) Cholecystitis with cholelithiasis: Status: Suspected Asessment and Plan: General surgery consulted. US of abd showed: No definite evidence of acute cholecystitis. There is a question of gallstones versus shadowing from adjacent bowel. There is biliary dilatation but no visible obstructing stone. Patient had no abdominal complaints or fever. An MRCP could be performed should she develop symptoms of abd pain, N/V or fevers. (3) DARYA (acute kidney injury): Status: Acute Asessment and Plan: This resolved with IV hydration. Creatinine was 1.1 at time of discharge. (4) Atrial fibrillation: Status: Chronic Asessment and Plan: Her Diltiazem was held and her metoprolol decreased from 25mg BID to 12.5 mg BID d/t low HR. Her xarelto was held d/t potential for surgical intervention of gallbladder concerns. Xarelto restarted on discharge. D/C diltiazem and continue lower dose metoprolol. (5) Elevated troponin I measurement: Status: Acute Asessment and Plan: Likely deman ischemia in setting of COVID-19 pneumonia. (6) Diabetes mellitus: Status: Chronic Asessment and Plan: Diet controlled. (7) Alzheimer's dementia: Status: Chronic Asessment and Plan: Cont donepezil. Impulsive behavior otherwise cooperative. Discharge Plan Disposition Patient Disposition: HOME Condition: Stable Discharge Details Reason For Visit: Covid 19,Pneumonia,Choledocolithiasis Admit Date/Time: 05/28/22 21:29 Admit Provider: Gabriele Ly Attending Provider: Gabriele Ly Primary Care Provider: Tariq Tolentino [facility] Course Hospital Course: This is an 82-year-old female patient who presented to the ED department with complaint of generalized weakness for 5 days having tested positive for COVID earlier this week 3 days prior to admission.? She was darted on Paxlovid 2 days prior to admission but began to have worsening generalized weakness.? She was seen by the PCP and had hypotension and was sent to the ED for possible IV fluids.? She continued to take a diuretic at home and in the ED was found to have acute kidney injury and responded to IV fluids for hypotension.? She also had cough but no significant fever and history of Alzheimer's with slight worsening of her dementia.? She also has diabetes with paroxysmal atrial fibrillation on anticoagulation with CHF on Lasix as mentioned which did cause her to be somewhat dehydrated upon admission.? Imaging also revealed dilated biliary system and common duct with possible common duct stone and cholecystitis with patient initiated on antibiotic coverage for her respiratory symptoms and possible cholecystitis.? AST and ALT noted to be elevated. As stated she was responding to IV fluids and felt better after having a couple of liters with ongoing fluids to be maintained overnight. See Diagnosis for details Home Meds and New Rx's Prescriptions: New metoprolol tartrate 25 mg Tablet 12.5 mg PO BID Qty: 60 0RF cefuroxime axetil 500 mg Tablet 500 mg PO BID Qty: 6 0RF Continued nystatin 100,000 unit/gram powder 1 applic topical BID PRN metformin 1,000 mg tablet 1,000 mg PO BID Qty: 180 3RF donepezil 10 mg tablet 10 mg PO QHS Qty: 90 3RF levothyroxine 100 mcg tablet 100 mcg PO DAILY Qty: 90 3RF paroxetine HCl 20 mg tablet 20 mg PO DAILY Qty: 30 0RF Xarelto 20 mg tablet 20 mg PO DAILY Qty: 90 3RF Rx Instructions: Pause while on Paxlovid atorvastatin 40 mg tablet 40 mg PO QPM Qty: 90 3RF Rx Instructions: Pause while on Paxlovid lisinopril 20 mg tablet 20 mg PO DAILY Qty: 90 3RF Held furosemide 20 mg tablet 20 mg PO DAILY Qty: 90 3RF Hold Instructions: Re-evaluate use of this medication at PCP follow up appt. Discontinued metoprolol tartrate 25 mg tablet 25 mg PO BID Qty: 180 3RF diltiazem HCl [DILT-XR] 180 mg capsule,ext.rel 24h degradable 180 mg PO DAILY Qty: 90 3RF Rx Instructions: Every other day while on Paxlovid Paxlovid (EUA) 300 mg (150 mg x 2)-100 mg tablets,dose pack See Rx Instructions PO .COMPLEX Qty: 30 0RF Rx Instructions: take TWO 150 mg tablets of nirmatrelvir with ONE 100 mg tablet of ritonavir twice daily for 5 days PO Discharge Instructions Additional Instructions: A follow up appointment has been made for you with your primary care physician on June 18, 2022 at 10:30 in the morning. If you cannot make this appointment or need to reschedule, please call them to do so. If she develops abdominal pain, nausea, vomiting, call PCP. An MRCP study would then be warranted to evaluate the biliary system. Referrals: Tariq Tolentino DO [Primary Care Provider] - Activity:: Activity as Tolerated Equipment/Supplies:: No Equipment Needed Diet:: As Tolerated Discharge Orders Discharge Orders: Discharge Order (Routine); Ordered 06/01/22 Ordered By: Mo Vela DS: Summary Time Spent with Patient providing and/or coordinating discharge services: Greater than 30 minutes Status at Discharge Functional status at discharge: independent ambulation Overall status at discharge: patient is progressing back to baseline Mental Status: other (Alzheimers dementia) Speech and Movement: speech clear Mood: other (Alzheimers dementia) Affect: normal affect Exam Narrative Exam Narrative: General: Anxious elderly female, cleaning up with nurse in room. HEENT: sclera clear. Heart: not auscultated Lungs: nonlabored breathing Abdomen: soft, nontender, nondistended Extremities: no edema BLEs Psych Mental Status: other (Alzheimers dementia) Speech and Movement: speech clear Mood: other (Alzheimers dementia) Affect: normal affect DS: Data Vitals/I&O Vitals and I&O: Vital Signs Temperature 36.5 C 06/01/22 08:30 Temperature Source Temporal Artery Scan 06/01/22 08:30 Pulse 60 06/01/22 08:30 Pulse Rhythm Regular 06/01/22 05:00 Pulse 60 05/30/22 05:00 Respiratory Rate 18 06/01/22 08:30 Respiratory Effort Non-Labored 06/01/22 05:00 Respiratory Depth Normal 06/01/22 05:00 Respiratory Pattern Normal 06/01/22 05:00 Blood Pressure 151/71 H 06/01/22 08:30 Blood Pressure Mean 76 05/31/22 21:44 Blood Pressure Position Supine 05/31/22 16:25 Pulse Oximetry 96 06/01/22 08:30 Oxygen Delivery Method Room Air 06/01/22 08:30 Oxygen Flow Rate 0 06/01/22 08:30 Pain Level 0 06/01/22 05:00 Comment 06/01/22 05:00 Intake & Output 05/31/22 05/31/22 06/01/22 11:59 23:59 11:59 Intake Total 360 / 1010 650 / 1010 Output Total 700 / 1300 600 / 1300 900 / 900 Balance -340 / -290 50 / -290 -900 / -900 Weight 62.5 kg Intake: Oral 360 / 1010 650 / 1010 Output: Urine 500 / 1100 600 / 1100 900 / 900 Stool 200 / 200 Other: Urine Color Yellow Yellow Yellow Urine Appearance Sediment Clear Clear Urine Odor Normal None Comment mixed with stools mixed with stool Stool Size Small Small Stool Characteristics Soft Soft Voiding Methods Bedside Commode Bedside Commode Data Completed and Pending Labs on day of discharge: Labs from last 24 hours 06/01/22 06/01/22 05/30/22 05:30 05:30 05:23 D-Dimer 712 H C-Reactive Protein 0.53 H 25-OH Vitamin D Total 41.3 Preliminary micro results at discharge 05/28/22 16:20 Blood Culture - Preliminary Blood NO GROWTH 72 HOURS 05/28/22 15:50 Blood Culture - Preliminary Blood NO GROWTH 72 HOURS PFSH All Active Problems Transaminitis (Acute) Discharge planning issues (Acute) DVT prophylaxis (Acute) COVID-19 (Acute) DARYA (acute kidney injury) (Acute) Elevated troponin I measurement (Acute) Pneumonia due to COVID-19 virus (Acute) Positive self-administered antigen test for COVID-19 (Acute) positive home test 05/26/22 Glaucoma (Chronic) Candidal skin infection (Acute) Alzheimer's dementia (Chronic) Atrial fibrillation (Chronic) Congestive heart failure (Chronic) Diabetes mellitus (Chronic) Accidental overdose (Acute) Medical History GI bleed HTN (hypertension) Hx of hyperlipidemia Hypothyroidism Family History Father Heart disease Hypertension Social History Smoking/Tobacco Use Status: Former Tobacco Use Smoking risk assessment performed?: Yes Alcohol Intake: never Drug use: Never Substance use type: does not use Adopted: No Caregiver/Support person: Yes Foster care: No Household members: family Housing: house Number of Children: 2 number of grandchildren: 4 Communication Needs: None Education Level: high school Do you need help understanding health information?: Always current occupation: Retired Pets and animals: Yes (1) Pets and animals: cat(s) Sexually active: No Do you think of yourself as: straight/heterosexual Current gender identity: female What is your relationship status?: How often do you talk on the phone with friends or family?: three or more times per week How often do you get together with friends or relatives?: three or more times per week Do you belong to any clubs or organized social groups?: no Panel score (0-1 are the most socially isolated patients): 1 Debo/Hindu: Taoism Special debo needs: No Seatbelt use: always Drive intox or ride w/intox light truck 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
[2022-06-01] MEDS: PARoxetine 20 MG TAB PO (09:48)
[2022-06-01] MEDS: Cefuroxime 500 MG TAB PO (09:48)
[2022-06-01] MEDS: Metoprolol 12.5 MG TAB PO (09:48)
--- NOTE | 2022-06-01 10:26 | PCNE_ITS ---
Date of service: 06/01/22 Time of Service: 07:00 History of Present Illness History of Present Illness Chief Complaint: COVID 19 pneumonia Narrative: Admission H and P This is an 82-year-old lady with Alzheimer's and paroxysmal atrial fibrillation now with rated cardia and mildly elevated troponin who presents with a 5-day history of symptoms started out as mild GI but generalized weakness and now more respiratory with COVID positive test 3 days prior to admission.? She was on Paxlovid upon admission but this has been changed to remdesivir and dexamethasone.? She also was dry chronically been on furosemide with poor intake and has responded to IV fluid resuscitation which will be cautious with history of CHF.? She is a DNR/DNI.? Monitor oxygen status and respiratory status closely.? She does have some abdominal findings on CT with possible choledocholithiasis and cholecystitis and will be treated with IV antibiotic coverage for lungs and abdomen with surgical consultation. Interim Hx: Per nursing Chasidy has been less agitated this last evening. She did have an IV in, but has removed this. When I went in to speak with Chasidy she thought she was at her parents home. She states that she lives with her mother and father. She could not tell me any of the recent past history. She did not know where she was. Assessment and Plan Assessment and plan (1) Pneumonia due to COVID-19 virus: Status: Acute Assessment and plan: She has received the standard treatment for COVID-19. She is breathing normally. She does not have oxygen in place. (2) Alzheimer's dementia: Status: Chronic Assessment and plan: Very little understanding of where she was, why she was here, and any recent past. She was cooperative (3) Atrial fibrillation: Status: Chronic Assessment and plan: Presently rate controlled, no longer has IV access and is refusing medications Qualifiers: Atrial fibrillation type: paroxysmal Qualified Code(s): I48.0 - Paroxysmal atrial fibrillation (4) Diabetes mellitus: Status: Chronic Assessment and plan: A1c was at 6.0 on recent testing. (5) Palliative care patient: Status: Acute Assessment and plan: There is a question of gallbladder disease. Most recent ultrasound did not conclusively show gallbladder disease. There is a question of doing an MRCP. Chasidy would need IV access which she has refused. I have attempted to reach her daughter about more comfort directed care. I did speak to Dr. Vela about releasing her to home on more comfort type care. She seems very comfortable when I saw her. Daughter is willing to take her home and provide the care. There is a question of having some residual pneumonia and she will go home on p.o. medication. Review of Systems Narrative: Unable to give me a review of systems PFSH All Active Problems (Updated 06/02/22 @ 20:26 by Pita Reyes MD, [place]) Palliative care patient (Acute) Pneumonia due to COVID-19 virus (Acute) Positive self-administered antigen test for COVID-19 (Acute) positive home test 05/26/22 Glaucoma (Chronic) Candidal skin infection (Acute) Alzheimer's dementia (Chronic) Atrial fibrillation (Chronic) Diabetes mellitus (Chronic) Accidental overdose (Acute) Medical History GI bleed HTN (hypertension) Hx of hyperlipidemia Hypothyroidism Family History Father Heart disease Hypertension Social History Smoking/Tobacco Use Status: Former Tobacco Use Smoking risk assessment performed?: Yes Alcohol Intake: never Drug use: Never Substance use type: does not use Adopted: No Caregiver/Support person: Yes Foster care: No Household members: family Housing: house Number of Children: 2 number of grandchildren: 4 Communication Needs: None Education Level: high school Do you need help understanding health information?: Always current occupation: Retired Pets and animals: Yes (1) Pets and animals: cat(s) Sexually active: No Do you think of yourself as: straight/heterosexual Current gender identity: female What is your relationship status?: How often do you talk on the phone with friends or family?: three or more times per week How often do you get together with friends or relatives?: three or more times per week Do you belong to any clubs or organized social groups?: no Panel score (0-1 are the most socially isolated patients): 1 Debo/Holiness: Buddhism Special debo needs: No Seatbelt use: always Drive intox or ride w/intox patient transportation 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 Exam Narrative Exam Narrative: Cooperative 82-year-old woman. Her lungs were clear although there was not deep breaths. Heart rate controlled. Abdomen nontender. Cognitively?unable to answer simple questions. Results Last Vital Signs Temp 97.7 F 06/01/22 08:30 Pulse 62 06/01/22 08:34 Resp 18 06/01/22 08:30 BP 151/71 H 06/01/22 08:34 Pulse Ox 96 06/01/22 08:35 Labs Result diagrams: 05/31/22 05:22 05/31/22 05:22 Labs: Laboratory Results - last 24 hr 05/30/22 06/01/22 06/01/22 05:23 05:30 05:30 D-Dimer 712 H C-Reactive Protein 0.53 H 25-OH Vitamin D Total 41.3 Laboratory Tests 04/30/22 13:37 Hemoglobin A1c 6.0 H
--- NOTE | 2022-06-01 17:21 | PDOC.CMDIS ---
- If Service Date Differs Date of service: 06/01/22 Time of Service: 17:21 LACE Index Scoring Tool - Questions: Length of Stay (in days): 4 - 6 Acuity (Admit via E.D.?): Yes Comorbidities: Diabetes w/o Complication, Dementia E.D. Visits: 2 - Answers: Total Score: 14 Risk of Readmission: High Risk Care Management Discharge Reason for Hospitalization: COVID 19, Pneumonia, Choledocolit with cholecystitis Discharge Plan: Chasidy will return home with her daughter, she will follow up with her PCP and plan of care as prescribed. She will transport via private vehicle with her daughter. Patient/Family Education Needs: Review discharge instructions, discuss Ask Me Three.
== END 2022-06-01 11:40 | disposition home or self-care (01) | DRG 177 ==
LOC: ER 21:44 → ICU 22:12
PROVIDERS: Family Medicine; Internal Medicine; Nurse Practitioner Family; Admitting Provider Family Medicine; Emergency Provider Physician Assistant; PCP Family Medicine; Visit Provider Family Medicine
DX: U07.1 COVID-19 (principal); J12.82 Pneumonia due to coronavirus disease 2019; N17.9 Acute kidney failure, unspecified; I24.8 Other forms of acute ischemic heart disease; K80.47 Calculus of bile duct with acute and chronic cholecystitis with obstruction; I48.0 Paroxysmal atrial fibrillation; G30.9 Alzheimer's disease, unspecified; F02.80 Dementia in other diseases classified elsewhere, unspecified severity, without behavioral disturbance, psychotic disturbance, mood disturbance, and anxiety; I50.9 Heart failure, unspecified; E11.9 Type 2 diabetes mellitus without complications; I95.9 Hypotension, unspecified; Z66 Do not resuscitate; Z79.84 Long term (current) use of oral hypoglycemic drugs; R74.01 Elevation of levels of liver transaminase levels; H40.9 Unspecified glaucoma; E03.9 Hypothyroidism, unspecified; Z79.01 Long term (current) use of anticoagulants; E86.0 Dehydration
CPT/HCPCS: 36415; 51702; 80048; 80053; 80076; 82306; 82550; 83690; 84145; 87040; 87635; 93005; 94640; 96361; 96365; 96367; 96375; 97162; 99223; 99232; 99291; J1650; 71045; 74176; 76705; 81003; 81015; 82728; 83605; 83735; 84443; 84484; 85025; 85379; 85610; 86140; 93010; 94667; 99233; 99239; J0248; J1100; J3475; J3490

== ENCOUNTER 2022-06-04 11:52 | Emergency (ER) | payer MEDICARE, SELFPAY ==
[2022-06-04] VITALS (26 sets, daily range): BP systolic 88–121; BP diastolic 48–61; PULSE 57–128; RESP 10–26; TEMP 36.5–36.6; O2SAT 96–100
--- NOTE | 2022-06-04 12:00 | RT.EKG_ITS ---
APPROVED REPORT Exam: Resting ECG Reason for Exam: DIZZINESS Patient Location: E HR:108 bpm ECG Measurements Heart Rate 108 AXIS [place] [id number] P [id number] QRSd 104 QRS -49 QT 389 T 133 QTc 521 Conclusion Atrial fibrillation...? atrial activity LAD, consider left anterior fascicular block...axis(240,-40), S>R II III aVF LVH with secondary repolarization abnormality...multi-LVH criteria, abnrm ST-T Prolonged QT interval...QTc >500mS
--- OUTSIDE RECORDS SUMMARY | 2022-06-04 12:02 | XMS_ITS | Encounter Summary ---
:1940 Author Organization [facility] [place] [address] Care Team Providers Name Role Phone Tariq Tolentino DO Primary Care Provider Reason for Referral Consultation (Routine) - Closed Specialty Diagnoses / Procedures Referred By Contact Refer red To Contact Neurology Diagnoses Alzheimer's disease Dementia in other diseases classified elsewhere without behavioral disturbance Tariq Tolentino DO [facility] 3c Procedures [facility] [address] [place] [id number] Referral ID Status Reason Start Date Expiration Date Visits V isits Requested Authorized [id number] Closed Consult, Test 10/14/2021 10/14/2022 6 6 & Treat PCP Updated and/or Approved Encounter Details Date Type Department Care Team Description 10/14/2021 Transcribe Orders Neurology at [facility] Tariq Tolentino Alzheimer's disease; [facility] DO Kailyn Dementia in other diseases classified el sewhere without behavioral disturbance Drive [address] [place] [phone] [place], [place] [id number] Social History Tobacco Use Types Packs/Day Years Used Date Never Assessed Sex Assigned at Date Recorded Not on file documented as of this encounter Plan of Treatment Scheduled Referrals Name Type Priority Associated Diagnoses Order S chedule Referral to Outpatient Referral Routine Alzheimer's disease Ordered: Neurology Dementia in other 10/14/2021 diseases classified elsewhere without behavioral disturbance documented as of this encounter Visit Diagnoses Diagnosis Alzheimer's disease Dementia in other diseases classified el sewhere without behavioral disturbance documented in this encounter Care Teams Customs Brokerage Agent Relationship Specialty Start Date End Date Tariq Tolentino DO PCP - General Family Medicine 10/14/[address] [place] [address] documented as of this encounter
--- OUTSIDE RECORDS SUMMARY | 2022-06-04 12:02 | XMS_ITS | Clinical Summary ---
:1940 Author Organization [facility] [place] [address] Care Team Providers Name Role Phone Tariq Tolentino DO Primary Care Provider Encounters Date Type Specialty Care Team Description 05/28/2022 Ancillary Procedure Radiology Tariq Tolentino DO from Last 3 Months Social History Tobacco Use Types Packs/Day Years Used Date Never Assessed Sex Assigned at Date Recorded Not on file Plan of Treatment Health Maintenance Due Date Last Done Comments Covid-19 Vaccine (#1) 1945 Hepatitis C Screening 01/29/1960 Tdap adult 1961 Tetanus vaccine 1961 Zoster vaccine (1 of 2) 01/29/1992 Advance Directive 1997 Bone Density Scan 2007 Pneumoccocal Vaccine: 65+ (1 - PCV) 2007 Influenza (Flu) vaccine (1 of 1 - Influenza standard 05/07/2022 series) Procedures Procedure Name Priority Date/Time Associated Diagnosis Comme nts FILM LIBRARY Routine 05/28/2022 8:47 PM Results f or this STORAGE ONLY CT EDT procedure ar e in ABDOMEN AND PELVIS the resul ts section. from Last 3 Months Results Film Library- Storage Only CT Abdomen & Pelvis (05/28/2022 8:47 PM EDT) Specimen (Source) Anatomical Location Collection Method / Collectio n Time Received Time / Laterality Volume Narrative RAD - 05/28/2022 8:47 PM EDT This exam is auto-finalizing. It's purpo se is for storage only. Tariq Tolentino DO IMG FILM LIBRARY ORDERABLES Performing Organization Address City/State/ZIP Code Phon e Number RAD [place], [place] from Last 3 Months Insurance Payer Benefit Plan / Subscriber ID Effective Dates Phone Addre ss Type Group [place]UE [id number] 2021-Presen [phone] BOX [employer] [place] [employer] t 22 [id number] [place] [address] Care Teams Superintendent Plant Relationship Specialty Start Date End Date Tariq Tolentino DO PCP - General Family Medicine 10/14/[address] [place], [place] [address] [place] [address]
--- OUTSIDE RECORDS SUMMARY | 2022-06-04 12:02 | XMS_ITS | Encounter Summary ---
:1940 Author Organization [facility] Address [address] [place] [address] Care Team Providers Name Role Phone Tariq Tolentino DO Primary Care Provider Encounter Details Date Type Department Care Team Description 05/28/2022 Ancillary Procedure Radiology Library at Bro Tolentino [facility] [address] [place] [id number] [phone] (Wo rk) Social History Tobacco Use Types Packs/Day Years Used Date Never Assessed Sex Assigned at Date Recorded Not on file documented as of this encounter Plan of Treatment Not on filedocumented as of this encounter Procedures Procedure Name Priority Date/Time Associated Diagnosis Comme nts FILM LIBRARY Routine 05/28/2022 8:47 PM Results f or this STORAGE ONLY CT EDT procedure ar e in ABDOMEN AND PELVIS the resul ts section. documented in this encounter Results Film Library- Storage Only CT Abdomen & Pelvis (05/28/2022 8:47 PM EDT) Specimen (Source) Anatomical Location Collection Method / Collectio n Time Received Time / Laterality Volume Narrative [facility] - 05/28/2022 8:47 PM EDT This exam is auto-finalizing. It's purpo se is for storage only. Tariq Tolentino DO [facility] FILM LIBRARY ORDERABLES Performing Organization Address City/State/ZIP Code Phon e Number [place], [place] documented in this encounter Visit Diagnoses Not on filedocumented in this encounter Care Teams Banking Pin Adjuster Relationship Specialty Start Date End Date Tariq Tolentino DO PCP - General Family Medicine 10/14/21 [address] [place], [place] [address] documented as of this encounter
[2022-06-04 13:26] LABS: Source Nasal/Nares
[2022-06-04 13:33] LABS: Bilirubin Negative (Negative); Blood Negative (Negative); Clarity Clear (Clear); Glucose Negative (Negative); Ketones Negative (Negative); Leukocyte Esterase Negative (Negative); Nitrite Negative (Negative); Specific Gravity 1.015 (1.005-1.025); Urobilinogen 0.2 EU/dL (Up TO 0.2)
[2022-06-04 13:43] LABS: Bacteria Rare HPF (Negative); C & S Indicated? No; Casts Negative LPF (Negative); Crystals Negative HPF (Negative); Epithelial Cells Rare HPF (Negative); Mucus Trace (Negative); RBC 0-2 HPF (0-2); WBC 0-2 HPF (0-5)
--- NOTE | 2022-06-04 13:45 | W.ED.GENAD ---
Discharge Plan Disposition Patient Disposition: STILL A PATIENT Condition: Stable Discharge Details Chief Complaint: GenMedical Clinical Impression: COVID-19, Generalized weakness Primary Care Provider: Tariq Tolentino ED Provider: Anshu Baldwin Home Meds and New Rx's Prescriptions: No Action nystatin 100,000 unit/gram powder 1 applic topical BID PRN furosemide 20 mg tablet 20 mg PO DAILY Qty: 90 3RF Hold Instructions: Re-evaluate use of this medication at PCP follow up appt. metformin 1,000 mg tablet 1,000 mg PO BID Qty: 180 3RF donepezil 10 mg tablet 10 mg PO QHS Qty: 90 3RF levothyroxine 100 mcg tablet 100 mcg PO DAILY Qty: 90 3RF paroxetine HCl 20 mg tablet 20 mg PO DAILY Qty: 30 0RF Xarelto 20 mg tablet 20 mg PO DAILY Qty: 90 3RF Rx Instructions: Pause while on Paxlovid atorvastatin 40 mg tablet 40 mg PO QPM Qty: 90 3RF Rx Instructions: Pause while on Paxlovid lisinopril 20 mg tablet 20 mg PO DAILY Qty: 90 3RF metoprolol tartrate 25 mg Tablet 12.5 mg PO BID Qty: 60 0RF cefuroxime axetil 500 mg Tablet 500 mg PO BID Qty: 6 0RF Medical Decision Making 82-year-old female with past medical history of diabetes, A. fib, anticoagulated, dementia, recent admission to the hospital for DARYA, cholecystitis with cholelithiasis, pneumonia due to COVID-19 virus presents for generalized weakness and concern of dehydration secondary to decreased appetite. Plan was if abdominal symptoms worsened then case consider MRCP. Patient was discharged on oral Ceftin which she has been taking. Clinically she appears slightly dry but otherwise well, nontoxic. Plan to obtain routine screening laboratory values, provide 2 L IV fluid and reassess. COVID-positive, this is no surprise. No evidence of leukocytosis or anemia. Electrolytes reveal a potassium of 4.1, creatinine is 1.2 with a GFR of 45.76. This appears consistent with her recent discharge levels. Troponin less than 50. Lipase minimally elevated at 465. Abdomen is soft, nontender. TSH is 0.85. Urinalysis unremarkable. Patient states that she feels well enough to be discharged home. I did contact the patient's daughter to make her aware of her initial laboratory values and the status of her IV hydration. She does states she is comfortable taking her home in her current condition. No fever, hypoxemia, leukocytosis, elevated LFTs. No evidence of DARYA. Patient tolerating p.o. intake here in the ER without difficulty Awaiting IV fluid infusion, delta troponin, trial ambulation and final disposition Medical Records Medical records reviewed: Yes I reviewed the patient's medical records. Lab Data Lab results reviewed: Yes I reviewed the patient's lab results. Labs: Laboratory Tests Range/Units 06/04/22 06/04/22 06/04/22 12:45 12:52 14:00 WBC (4.4-10.8) 10^3/uL RBC (3.93-5.22) 10^6/uL Hgb (11.2-15.7) g/dL Hct (36.0-46.0) % MCV (80-95) fL MCH (27.0-33.0) pg MCHC (32.0-36.0) % RDW (11.7-14.6) % Plt Count (130-400) 10^3/uL MPV (8.0-11.0) fL Immature Gran % Neutrophils % Lymphocytes % Monocytes % Eosinophils % Basophils % Nucleated RBC % (0.0-0.3) % Absolute Neutrophils (1.2-6.7) 10^3/uL Absolute Lymphocytes (1.2-3.4) 10^3/uL Absolute Monocytes (0.1-0.8) 10^3/uL Absolute Eosinophils (0.0-0.7) 10^3/uL Absolute Basophils (0.0-0.2) 10^3/uL Sodium (136-145) mmol/L 133 L Potassium (3.5-5.1) mmol/L 4.1 Chloride (98-107) mmol/L 98 Carbon Dioxide (21.0-32.0) mmol/L 22.6 Anion Gap (3-11) mmol/L 12.4 H BUN (7-18) mg/dL 16 Creatinine (0.55-1.02) mg/dL 1.2 H Est GFR (CKD-EPI 2020) (mL/min/1.73m2) 45.76 Glucose (74-106) mg/dL 103 Calcium (8.5-10.1) mg/dL 9.9 Total Bilirubin (0.2-1.0) mg/dL 0.7 AST (15-37) U/L 12 L ALT (14-59) U/L 12 L Alkaline Phosphatase (46-116) U/L 94 Troponin I (<or=60) ng/L < 50 Total Protein (6.4-8.2) g/dL 7.7 Albumin (3.4-5.0) g/dL 3.4 Lipase (73-393) U/L 465 H TSH (0.36-3.74) uIU/mL 0.85 Urine Color (Yellow) Yellow Urine Clarity (Clear) Clear Urine pH (5-8) 6.0 Ur Specific [place] (1.005-1.025) 1.015 Urine Protein (Negative) mg/dL Trace H Urine Ketones (Negative) mg/dL Negative Urine Blood (Negative) Negative Urine Nitrite (Negative) Negative Urine Bilirubin (Negative) Negative Urine Urobilinogen (Up TO 0.2) EU/dL 0.2 Ur Leukocyte Esterase (Negative) Negative Urine RBC (0-2) HPF 0-2 Urine WBC (0-5) HPF 0-2 Ur Epithelial Cells (Negative) HPF Rare Urine Crystals (Negative) HPF Negative Urine Bacteria (Negative) HPF Rare Urine Casts (Negative) LPF Negative Urine Mucus (Negative) Trace Ur Culture Indicated? No Urine Glucose (Negative) mg/dL Negative COVID-19 Source Nasal/Nares SARS-CoV-2 (PCR) (Negative) POSITIVE A* Range/Units 06/04/22 14:00 WBC (4.4-10.8) 10^3/uL 7.33 RBC (3.93-5.22) 10^6/uL 4.98 Hgb (11.2-15.7) g/dL 13.6 Hct (36.0-46.0) % 40.4 MCV (80-95) fL 81 MCH (27.0-33.0) pg 27.3 MCHC (32.0-36.0) % 33.7 RDW (11.7-14.6) % 14.6 Plt Count (130-400) 10^3/uL 204 MPV (8.0-11.0) fL 11.6 H Immature Gran % 1.0 Neutrophils % 69.8 Lymphocytes % 13.8 Monocytes % 14.3 Eosinophils % 0.8 Basophils % 0.3 Nucleated RBC % (0.0-0.3) % 0.0 Absolute Neutrophils (1.2-6.7) 10^3/uL 5.12 Absolute Lymphocytes (1.2-3.4) 10^3/uL 1.01 L Absolute Monocytes (0.1-0.8) 10^3/uL 1.05 H Absolute Eosinophils (0.0-0.7) 10^3/uL 0.06 Absolute Basophils (0.0-0.2) 10^3/uL 0.02 Sodium (136-145) mmol/L Potassium (3.5-5.1) mmol/L Chloride (98-107) mmol/L Carbon Dioxide (21.0-32.0) mmol/L Anion Gap (3-11) mmol/L BUN (7-18) mg/dL Creatinine (0.55-1.02) mg/dL Est GFR (CKD-EPI 2020) (mL/min/1.73m2) Glucose (74-106) mg/dL Calcium (8.5-10.1) mg/dL Total Bilirubin (0.2-1.0) mg/dL AST (15-37) U/L ALT (14-59) U/L Alkaline Phosphatase (46-116) U/L Troponin I (<or=60) ng/L Total Protein (6.4-8.2) g/dL Albumin (3.4-5.0) g/dL Lipase (73-393) U/L TSH (0.36-3.74) uIU/mL Urine Color (Yellow) Urine Clarity (Clear) Urine pH (5-8) Ur Specific [place] (1.005-1.025) Urine Protein (Negative) mg/dL Urine Ketones (Negative) mg/dL Urine Blood (Negative) Urine Nitrite (Negative) Urine Bilirubin (Negative) Urine Urobilinogen (Up TO 0.2) EU/dL Ur Leukocyte Esterase (Negative) Urine RBC (0-2) HPF Urine WBC (0-5) HPF Ur Epithelial Cells (Negative) HPF Urine Crystals (Negative) HPF Urine Bacteria (Negative) HPF Urine Casts (Negative) LPF Urine Mucus (Negative) Ur Culture Indicated? Urine Glucose (Negative) mg/dL COVID-19 Source SARS-CoV-2 (PCR) (Negative) ECG Data Attestation: I personally reviewed and interpreted this ECG (s) as follows: Interpretation: A. fib, ventricular rate 108, no STEMI HPI General Mode of arrival: ambulatory. Date/Time Provider Initiated Documentation: 06/04/22 11:54. Limitations to Documentation: no limitations. Information obtained by: patient and family. HPI Narrative: This is a 82-year-old female with a past medical history of Alzheimer's dementia, diabetes, A. fib, anticoagulated, with recent admission to our hospital for an DARYA, suspected cholecystitis, and pneumonia due to COVID-19, presenting to the ER for generalized weakness, decreased appetite, concern for dehydration. I was able to speak with her daughter Ira who reports that her mother has not had any real focal complaints but because of her lack of appetite she to was concerned of dehydration. Denies headache, fever, neck pain, chest pain, shortness of breath. Does report mild dry cough. Denies abdominal pain, nausea, vomiting, dysuria, focal weakness. Patient has been taking her antibiotics since her discharge from the hospital. Patient was admitted on 05-28 and discharged on 06-01 Related Data Home Medications Medication Instructions Recorded Confirmed furosemide 20 mg tablet 20 mg PO DAILY #90 tabs 06/26/21 06/04/22 metformin 1,000 mg tablet 1,000 mg PO BID #180 tabs 07/14/21 06/04/22 donepezil 10 mg tablet 10 mg PO QHS #90 tabs 10/02/21 06/04/22 levothyroxine 100 mcg tablet 100 mcg PO DAILY #90 tabs 10/02/21 06/04/22 paroxetine HCl 20 mg tablet 20 mg PO DAILY #30 tabs 10/22/21 06/04/22 rivaroxaban 20 mg tablet (Xarelto) 20 mg PO DAILY #90 tabs 10/23/21 06/04/22 atorvastatin 40 mg tablet 40 mg PO QPM #90 tabs 02/03/22 06/04/22 lisinopril 20 mg tablet 20 mg PO DAILY #90 tabs 02/03/22 06/04/22 nystatin 100,000 unit/gram topical 1 applic topical BID PRN 04/28/22 06/04/22 powder cefuroxime axetil 500 mg tablet 500 mg PO BID #6 tabs 06/01/22 06/04/22 metoprolol tartrate 25 mg tablet 12.5 mg PO BID #60 tabs 06/01/22 06/04/22 Previous Rx's Medication Instructions Recorded furosemide 20 mg tablet 20 mg PO DAILY #90 tabs 06/26/21 metformin 1,000 mg tablet 1,000 mg PO BID #180 tabs 07/14/21 donepezil 10 mg tablet 10 mg PO QHS #90 tabs 10/02/21 levothyroxine 100 mcg tablet 100 mcg PO DAILY #90 tabs 10/02/21 paroxetine HCl 20 mg tablet 20 mg PO DAILY #30 tabs 10/22/21 rivaroxaban 20 mg tablet (Xarelto) 20 mg PO DAILY #90 tabs 10/23/21 atorvastatin 40 mg tablet 40 mg PO QPM #90 tabs 02/03/22 lisinopril 20 mg tablet 20 mg PO DAILY #90 tabs 02/03/22 cefuroxime axetil 500 mg tablet 500 mg PO BID #6 tabs 06/01/22 metoprolol tartrate 25 mg tablet 12.5 mg PO BID #60 tabs 06/01/22 Allergies Allergy/AdvReac Type Severity Reaction Status Date / Time Penicillins Allergy Skin Rash Verified 06/04/22 13:19 General Stated Complaint: GenMedical ALANNA: 3 Review of Systems Constitutional Constitutional: Reports fatigue, Denies fever(s) and Reports weakness ENT Ears, Nose, Mouth, and Throat: Denies neck pain Cardiovascular Cardiovascular: Denies chest pain and Denies dyspnea Respiratory Respiratory: Reports cough and Denies dyspnea Gastrointestinal Gastrointestinal: Denies abdominal pain, Denies nausea and Denies vomiting Genitourinary Genitourinary: Denies dysuria Musculoskeletal Musculoskeletal: Denies back pain and Denies neck pain Integumentary/Breasts Skin/Breast: Denies rash Neurologic Neurologic: Reports weakness Endocrine Endocrine: Reports fatigue Hematologic/Lymphatic Hematologic/Lymphatic: Reports easy bleeding and Reports easy bruising PFSH All Active Problems (Updated 06/04/22 @ 15:48 by SHELIA Tello) COVID-19 (Acute) Generalized weakness (Acute) Palliative care patient (Acute) Pneumonia due to COVID-19 virus (Acute) Positive self-administered antigen test for COVID-19 (Acute) positive home test 05/26/22 Glaucoma (Chronic) Candidal skin infection (Acute) Alzheimer's dementia (Chronic) Atrial fibrillation (Chronic) Diabetes mellitus (Chronic) Accidental overdose (Acute) Medical History Congestive heart failure GI bleed HTN (hypertension) Hx of hyperlipidemia Hypothyroidism Family History Father Heart disease Hypertension Social History Smoking/Tobacco Use Status: Former Tobacco Use Smoking risk assessment performed?: Yes Alcohol Intake: never Drug use: Never Substance use type: does not use Adopted: No Caregiver/Support person: Yes Foster care: No Household members: family Housing: house Number of Children: 2 number of grandchildren: 4 Communication Needs: None Education Level: high school Do you need help understanding health information?: Always current occupation: Retired Pets and animals: Yes (1) Pets and animals: cat(s) Sexually active: No Do you think of yourself as: straight/heterosexual Current gender identity: female What is your relationship status?: How often do you talk on the phone with friends or family?: three or more times per week How often do you get together with friends or relatives?: three or more times per week Do you belong to any clubs or organized social groups?: no Panel score (0-1 are the most socially isolated patients): 1 Debo/Tenriism: Sikh Special debo needs: No Seatbelt use: always Drive intox or ride w/intox lunch truck 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 Exam Const General: cooperative, healthy appearing, comfortable and no acute distress Orientation: alert, awake and oriented to person [facility] Head: normal to inspection, normocephalic and atraumatic Face and sinus: normal facial exam Mouth: moist mucous membranes abnormal (Slightly dry) Eyes General: appearance normal, both eyes and all related structures Conjunctivae: conjunctivae normal Neck Neck: normal visual inspection, full ROM, no meningeal signs, trachea midline and supple Resp Effort & Inspection: normal respiratory effort and able to speak in complete sentences Auscultation: diminished lung sounds bilaterally in the lower lung ocasio Cardio Rate: tachycardic (105) Rhythm: abnormal rhythm irregularly irregular GI Palpation: soft, not firm, no guarding and nontender Auscultation: normal bowel sounds Back/Spine/Pelvis Back: No back tenderness Skin General skin exam: no rashes or lesions noted Neuro General: patient alert, patient awake, moves all extremities and no focal motor deficits Cognition: normal cognition Speech: speech normal Motor: muscle tone normal throughout Sensory Exam: no sensory deficits noted Extrem General: normal to inspection, full ROM, capillary refill normal, no pedal edema and no calf tenderness Psych Appearance: grossly normal Mental Status: mental status grossly normal Course Vital Signs Vital signs: Vital Signs Temperature 36.5 C 06/04/22 12:00 Pulse 101 H 06/04/22 12:00 Respiratory Rate 11 L 06/04/22 12:00 Blood Pressure 115/57 L 06/04/22 12:00 Pulse Oximetry 97 06/04/22 12:00 Temperature 36.5 C 06/04/22 12:00 Temperature Source Skin 06/04/22 12:00 Pulse 101 H 06/04/22 12:00 Respiratory Rate 16 06/04/22 13:10 Respiratory Effort Non-Labored 06/04/22 13:24 Respiratory Depth Normal 06/04/22 13:10 Respiratory Pattern Normal 06/04/22 13:10 Blood Pressure 115/57 L 06/04/22 12:00 Blood Pressure Position Supine 06/04/22 12:00 Pulse Oximetry 97 06/04/22 12:00 Pain Level 0 06/04/22 12:00 Lab/Test Results Lab/Test Results: Laboratory Tests Range/Units 06/04/22 06/04/22 12:45 12:52 Urine Color (Yellow) Yellow Urine Clarity (Clear) Clear Urine pH (5-8) 6.0 Ur Specific [place] (1.005-1.025) 1.015 Urine Protein (Negative) mg/dL Trace H Urine Ketones (Negative) mg/dL Negative Urine Blood (Negative) Negative Urine Nitrite (Negative) Negative Urine Bilirubin (Negative) Negative Urine Urobilinogen (Up TO 0.2) EU/dL 0.2 Ur Leukocyte Esterase (Negative) Negative Urine RBC (0-2) HPF 0-2 Urine WBC (0-5) HPF 0-2 Ur Epithelial Cells (Negative) HPF Rare Urine Crystals (Negative) HPF Negative Urine Bacteria (Negative) HPF Rare Urine Casts (Negative) LPF Negative Urine Mucus (Negative) Trace Ur Culture Indicated? No Urine Glucose (Negative) mg/dL Negative COVID-19 Source Nasal/Nares
[2022-06-04 14:03] LABS: COVID-19 PCR POSITIVE (Negative)
[2022-06-04 14:15] LABS: Abs Immature Grans 0.07 10^3/uL (0.0-0.06); Absolute Basophil Count 0.02 10^3/uL (0.0-0.2); Absolute Eosinophil Count 0.06 10^3/uL (0.0-0.7); Absolute Lymphocyte Count 1.01 10^3/uL (1.2-3.4); Absolute Monocyte Count 1.05 10^3/uL (0.1-0.8); Absolute Neutrophil Count 5.12 10^3/uL (1.2-6.7); Basophils % 0.3; Eosinophils % 0.8; HCT 40.4 % (36.0-46.0); HGB 13.6 g/dL (11.2-15.7); Lymphocytes % 13.8; MCH 27.3 pg (27.0-33.0); MCHC 33.7 % (32.0-36.0); MCV 81 fL (80-95); MPV 11.6 fL (8.0-11.0); Monocytes % 14.3; Neutrophils % 69.8; Platelet Count 204 10^3/uL (130-400); RBC 4.98 10^6/uL (3.93-5.22); RDW 14.6 % (11.7-14.6); WBC 7.33 10^3/uL (4.4-10.8)
[2022-06-04 14:41] LABS: ALT 12 U/L (14-59); AST 12 U/L (15-37); Albumin 3.4 g/dL (3.4-5.0); Alkaline Phosphatase 94 U/L (46-116); Anion Gap 12.4 mmol/L (3-11); BUN 16 mg/dL (7-18); Bilirubin, Total 0.7 mg/dL (0.2-1.0); CO2 22.6 mmol/L (21.0-32.0); CREATININE 1.2 mg/dL (0.55-1.02); Calcium 9.9 mg/dL (8.5-10.1); Chloride 98 mmol/L (98-107); Estimated GFR 45.76 (mL/min/1.73m2); Glucose 103 mg/dL (74-106); Lipase 465 U/L (73-393); Potassium 4.1 mmol/L (3.5-5.1); Sodium 133 mmol/L (136-145); TSH (W/Ref FT4) 0.85 uIU/mL (0.36-3.74); Total Protein 7.7 g/dL (6.4-8.2); Troponin I < 50 ng/L (<or=60)
[2022-06-04] MEDS: Normal Saline 1,000 ML 1000 ML IV (14:44)
== END 2022-06-04 16:58 | disposition still patient (30) ==
PROVIDERS: Emergency Provider Physician Assistant; PCP Family Medicine
DX: U07.1 COVID-19 (principal); I11.0 Hypertensive heart disease with heart failure; I50.9 Heart failure, unspecified; Z87.891 Personal history of nicotine dependence; E11.9 Type 2 diabetes mellitus without complications; Z79.84 Long term (current) use of oral hypoglycemic drugs
CPT/HCPCS: 36415; 80053; 83690; 87635; 93005; 96360; 96361; 99284; 81003; 81015; 84443; 84484; 85025; 93010

== ENCOUNTER 2022-09-13 12:43 | Emergency (ER) | payer MEDICARE, SELFPAY ==
[2022-09-13 12:45] VITALS: BP 124/76; PULSE 92; RESP 17; TEMP 36.5; O2SAT 99
--- NOTE | 2022-09-13 13:04 | W.ED.GENAD ---
Discharge Plan Disposition Patient Disposition: Home Condition: Stable Discharge Details Clinical Impression: Acute UTI Primary Care Provider: Tariq Tolentino ED Provider: Reid Sheppard Home Meds and New Rx's Prescriptions: New levofloxacin 750 mg tablet 750 mg PO DAILY Qty: 5 0RF Continued nystatin 100,000 unit/gram powder 1 applic topical BID PRN (Reason: skin irritation) Qty: 60 0RF metoprolol tartrate 25 mg tablet 12.5 mg PO BID Qty: 90 3RF donepezil 10 mg tablet 10 mg PO QHS Qty: 90 3RF levothyroxine 100 mcg tablet 100 mcg PO DAILY Qty: 90 3RF paroxetine HCl 20 mg tablet 20 mg PO DAILY Qty: 30 0RF Xarelto 20 mg tablet 20 mg PO DAILY Qty: 90 3RF Rx Instructions: Pause while on Paxlovid atorvastatin 40 mg tablet 40 mg PO QPM Qty: 90 3RF Rx Instructions: Pause while on Paxlovid lisinopril 20 mg tablet 20 mg PO DAILY Qty: 90 3RF metformin 1,000 mg tablet 1,000 mg PO BID Qty: 180 3RF Discharge Instructions Instructions: Urinary Tract Infection in Women (ED) Additional Instructions: Her urine showed evidence of a urinary tract infection follow up with her primary care provider if not improving this week if she has fevers, persistent vomiting or appears more ill return to the emergency department Medical Decision Making 82 yo female with hx of dementia, afib, who comes in with her daughter after she started to complain of lower mid abdominal pain 1 hour ago that has since resolved. She also had one episode of vomiting. No recent fevers or chills per the daughter but rest of ros is limited due to the patient's dementia. Pt arrives denying any pain and states she feels fine. She is alert oriented to name and place but doesn't know the year and can't provide any additional history due to her dementia. She is in no distress speaking clearly, has a soft nontender abdomen. no cva tenderness. Unclear etiology of her lower abdominal discomfort that resolved, will obtain ua and reassess. ua with hematuria and leukocytes, patient stable and still has no pain and is in no distress sitting asking to go home. She has no tenderness on exam and no cva tenderness. Discussed with her daughter, suspect uti, will start her on levofloxacin and advised to f/u with pcp this week, return precautions given Differential Diagnosis Differential Diagnosis: cystitis, colitis, kidney stone Medical Records Medical records reviewed: Yes I reviewed the patient's medical records. Lab Data Lab results reviewed: Yes I reviewed the patient's lab results. HPI General Mode of arrival: wheelchair. Date/Time Provider Initiated Documentation: 09/13/22 12:43. Information obtained by: family. History of Present Illness 82 year old F presents to the emergency department with the chief complaint of lower abdominal pain, described as moderate, Patient started experiencing this hour(s) (1) and it has been now resolved. Patient notes nausea/vomiting; denies fever/chills. Patient did receive the following treatments prior to arrival, none Related Data Home Medications Medication Instructions Recorded Confirmed donepezil 10 mg tablet 10 mg PO QHS #90 tabs 10/02/21 09/13/22 levothyroxine 100 mcg tablet 100 mcg PO DAILY #90 tabs 10/02/21 09/13/22 paroxetine HCl 20 mg tablet 20 mg PO DAILY #30 tabs 10/22/21 09/13/22 rivaroxaban 20 mg tablet (Xarelto) 20 mg PO DAILY #90 tabs 10/23/21 09/13/22 atorvastatin 40 mg tablet 40 mg PO QPM #90 tabs 02/03/22 09/13/22 lisinopril 20 mg tablet 20 mg PO DAILY #90 tabs 02/03/22 09/13/22 metformin 1,000 mg tablet 1,000 mg PO BID #180 tabs 07/17/22 09/13/22 metoprolol tartrate 25 mg tablet 12.5 mg PO BID #90 tabs 07/27/22 09/13/22 nystatin 100,000 unit/gram topical 1 applic topical BID PRN skin 07/27/22 09/13/22 powder irritation #60 grams levofloxacin 750 mg tablet 750 mg PO DAILY #5 tabs 09/13/22 Previous Rx's Medication Instructions Recorded donepezil 10 mg tablet 10 mg PO QHS #90 tabs 10/02/21 levothyroxine 100 mcg tablet 100 mcg PO DAILY #90 tabs 10/02/21 paroxetine HCl 20 mg tablet 20 mg PO DAILY #30 tabs 10/22/21 rivaroxaban 20 mg tablet (Xarelto) 20 mg PO DAILY #90 tabs 10/23/21 atorvastatin 40 mg tablet 40 mg PO QPM #90 tabs 02/03/22 lisinopril 20 mg tablet 20 mg PO DAILY #90 tabs 02/03/22 metformin 1,000 mg tablet 1,000 mg PO BID #180 tabs 07/17/22 metoprolol tartrate 25 mg tablet 12.5 mg PO BID #90 tabs 07/27/22 nystatin 100,000 unit/gram topical 1 applic topical BID PRN skin 07/27/22 powder irritation #60 grams levofloxacin 750 mg tablet 750 mg PO DAILY #5 tabs 09/13/22 Allergies Allergy/AdvReac Type Severity Reaction Status Date / Time Penicillins Allergy Skin Rash Verified 09/13/22 12:51 General Stated Complaint: Urinary ALANNA: 4 Review of Systems Unobtainable due to mental status PFSH All Active Problems (Updated 09/13/22 @ 13:52 by Reid Sheppard MD) Acute UTI (Acute) DNR (do not resuscitate) (Acute) Poor appetite (Acute) Palliative care patient (Acute) Glaucoma (Chronic) Alzheimer's dementia (Chronic) Atrial fibrillation (Chronic) Medical History (Updated 09/13/22 @ 13:52 by Reid Sheppard MD) Congestive heart failure Diabetes mellitus GI bleed HTN (hypertension) Hx of hyperlipidemia Hypothyroidism Family History Father Heart disease Hypertension Social History Smoking/Tobacco Use Status: Former Tobacco Use Smoking risk assessment performed?: Yes Alcohol Intake: never Drug use: Never Substance use type: does not use Adopted: No Caregiver/Support person: Yes Foster care: No Household members: family Housing: house Number of Children: 2 number of grandchildren: 4 Communication Needs: None Education Level: high school Do you need help understanding health information?: Always current occupation: Retired Pets and animals: Yes (1) Pets and animals: cat(s) Sexually active: No Do you think of yourself as: straight/heterosexual Current gender identity: female What is your relationship status?: How often do you talk on the phone with friends or family?: three or more times per week How often do you get together with friends or relatives?: three or more times per week Do you belong to any clubs or organized social groups?: no Panel score (0-1 are the most socially isolated patients): 1 Debo/Sikh: Presybeterian Special debo needs: No Seatbelt use: always Drive intox or ride w/intox piledriver carpenter: No Do you feel safe at home: Yes Do you feel safe in your relationship?: Yes Exam Const General: no acute distress Orientation: alert HENMT Head: normal to inspection Ears: external ears normal General nose exam: external nose normal Mouth: moist mucous membranes Eyes General: appearance normal, both eyes and all related structures Neck Neck: normal visual inspection Resp Effort & Inspection: normal respiratory effort and able to speak in complete sentences Cardio Rate: regular rate GI Palpation: soft and nontender Skin General skin exam: no rashes or lesions noted Neuro General: patient alert Extrem General: normal to inspection Psych Mental Status: mental status grossly normal Course Vital Signs Vital signs: Vital Signs Temperature 36.5 C 09/13/22 12:45 Pulse 92 H 09/13/22 12:45 Respiratory Rate 17 09/13/22 12:45 Blood Pressure 124/76 09/13/22 12:45 Pulse Oximetry 99 09/13/22 12:45 Temperature 36.5 C 09/13/22 12:45 Temperature Source Temporal Artery Scan 09/13/22 12:45 Pulse 92 H 09/13/22 12:45 Respiratory Rate 17 09/13/22 12:45 Respiratory Effort 09/13/22 12:49 Blood Pressure 124/76 09/13/22 12:45 Blood Pressure Position Sitting 09/13/22 12:45 Pulse Oximetry 99 09/13/22 12:45 Oxygen Delivery Method Room Air 09/13/22 12:45 Oxygen Flow Rate 0 09/13/22 12:45
[2022-09-13 13:28] LABS: Bilirubin Small (Negative); Blood Large (Negative); Clarity Cloudy (Clear); Glucose Negative (Negative); Ketones Negative (Negative); Leukocyte Esterase Small (Negative); Nitrite Negative (Negative)
[2022-09-13 13:32] LABS: Bacteria Negative HPF (Negative); C & S Indicated? Yes; Casts Negative LPF (Negative); Crystals Negative HPF (Negative); Epithelial Cells Rare HPF (Negative); Mucus Negative (Negative); Other Cells Rare Transitional (Negative); RBC >50 HPF (0-2)
[2022-09-13] MEDS: levoFLOXacin 500 MG, levoFLOXacin 250 MG 750 MG PO (13:52)
[2022-09-13 14:00] VITALS: BP 124/76; PULSE 88; RESP 17; TEMP 36.5; O2SAT 99
== END 2022-09-13 13:59 | disposition home or self-care (01) ==
PROVIDERS: Emergency Provider Emergency Medicine; PCP Family Medicine
DX: N39.0 Urinary tract infection, site not specified (principal); I48.91 Unspecified atrial fibrillation; I11.0 Hypertensive heart disease with heart failure; I50.9 Heart failure, unspecified; E78.5 Hyperlipidemia, unspecified; E11.9 Type 2 diabetes mellitus without complications
CPT/HCPCS: 99283; 81003; 81015; 87086; 99284

== ENCOUNTER 2022-09-14 02:18 | Inpatient (IN) | payer MEDICARE, SELFPAY ==
[2022-09-14] VITALS (20 sets, daily range): BP systolic 104–153; BP diastolic 58–92; PULSE 87–130; RESP 13–24; TEMP 36.3–37.1; O2SAT 95–100; BMI 23.2
--- NOTE | 2022-09-14 02:29 | DI.CT_ITS ---
Exam(s) CT CHEST/ABD/PEL WO EXAM: CT CHEST/ABD/PEL WO CLINICAL HISTORY: vomiting, cough, sob, r/o obstruction/aspiration. TECHNIQUE: Imaging Protocol: Axial computed tomography images with coronal and sagittal reformatted images were created and reviewed CONTRAST MATERIAL: Intravenous: Omnipaque 350 Contrast volume:100 ml Oral: no COMPARISON: CT CT ABDOMEN PELVIS WO from 05/28/2022 FINDINGS: CHEST: Tracheobronchial tree: Patent where visualized. Mediastinum and Maya: No dominant adenopathy or fluid collection. Pulmonary parenchyma: No consolidation or dominant measurable mass. Pleura: No effusion or pneumothorax. Lymph nodes: Within normal limits. Aorta: Thoracic portion non-dilated. Atherosclerotic calcifications. Heart: Stable cardiomegaly. Coronary artery calcifications. Bones: Unremarkable for age. No compression fractures. No lytic or blastic lesions. ABDOMEN: Exam somewhat limited by patient motion. Liver: Normal density. No measurable mass. Gallbladder and biliary tract: No radiodense calculus or dilation. Pancreas: Normal density, no abnormal calcifications or inflammatory process. Spleen: Normal. Kidneys: Normal size, contour and axis. Moderate right hydronephrosis secondary to a [address] one in the distal right ureter. Several other nonobstructing stones are noted bilaterally. No joe s seen. Adrenal glands: No masses seen. Aorta: Abdominal portion non-dilated. Severe atherosclerotic changes. Lymph nodes: Within normal limits. Soft tissues: Unremarkable. PELVIS: Bladder: Symmetric distention, no gross wall thickening. Bowel: No obstruction or bowel wall thickening. Diverticulosis. No evidence of appendicitis. Normal quantity of stool. Peritoneal cavity: No ascites, collection or mesenteric inflammatory response. Bones: Unremarkable for age.. Reproductive organs: Within normal limits. IMPRESSION: Moderate right hydronephrosis secondary to an 8 millimeter stone in the distal ureter. Other nonobst ructing stones noted in both kidneys.. No acute abnormality in the chest. RADIATION DOSE DELIVERED: 878.37mGy.cm Total DLP DATA REPOSITORY: All CT scans at this facility are submitted to the National Radiology Data Registry (NRDR) Dose Index Registry (DIR) with the [employer] (ACR). RADIATION OPTIMIZATION: All CT scans at this facility use at least one of these dose optimization te chniques: automated exposure control; mA and/or kV adjustment per patient size (includes targeted exa ms where dose is matched to clinical indication); or iterative reconstruction.
--- NOTE | 2022-09-14 02:30 | ED.GENADUL_ITS ---
Discharge Plan Disposition Patient Disposition: Admit to [facility] Condition: Stable Discharge Details Clinical Impression: Kidney stone on right side, Acute UTI Primary Care Provider: Tariq Tolentino ED Provider: Johnnie Mendoza Home Meds and New Rx's Prescriptions: No Action nystatin 100,000 unit/gram powder 1 applic topical BID PRN (Reason: skin irritation) Qty: 60 0RF metoprolol tartrate 25 mg tablet 12.5 mg PO BID Qty: 90 3RF donepezil 10 mg tablet 10 mg PO QHS Qty: 90 3RF levothyroxine 100 mcg tablet 100 mcg PO DAILY Qty: 90 3RF paroxetine HCl 20 mg tablet 20 mg PO DAILY Qty: 30 0RF Xarelto 20 mg tablet 20 mg PO DAILY Qty: 90 3RF Rx Instructions: Pause while on Paxlovid atorvastatin 40 mg tablet 40 mg PO QPM Qty: 90 3RF Rx Instructions: Pause while on Paxlovid lisinopril 20 mg tablet 20 mg PO DAILY Qty: 90 3RF metformin 1,000 mg tablet 1,000 mg PO BID Qty: 180 3RF levofloxacin 750 mg tablet 750 mg PO DAILY Qty: 5 0RF Medical Decision Making 82-year-old female with a past medical history of atrial fibrillation on rivaroxaban, severe Alzheimer's dementia, palliative care patient, who is DNR/DNI, with high cholesterol, high blood pressure, type 2 diabetes, who was recently seen and evaluated about 12 hours ago and was diagnosed with urinary tract infection, started on Levaquin and discharge, presents currently for vomiting and cough. Daughter states that this evening the patient had a few more episodes of vomiting at home, and after the last when she had a notable coughing episode. She was short of breath and had a pretty notable cough per the daughter. It came to the ER for further assessment. Daughter states that the cough has improved since then. Patient has notable dementia and so she does not recall any of this. Patient's daughter states that the patient is doing much better in general at this point. No other complaints at this time. No other modifying factors. Exam demonstrates a well-appearing and pleasantly demented female, scattered rhonchi, but no wheezes or rales. Nontender nondistended abdomen. Differential is slightly challenging based on exam as the patient is not able to add any significant additional components secondary to her dementia. Concern is for aspiration pneumonia, but also potential obstruction causing the vomiting. We will get radiographic imaging, basic blood work, monitor closely and reassess. 4:08 AM Patient's laboratory work-up has returned, no white count, electrolytes stable, BUN elevated at 23, creatinine higher than normal at 1.8, GFR diminished at 28. Patient remains notably stable here in the ED. CT scan has returned and shows evidence of an 8 mm calculus in the right distal ureter with moderate right hydroureteronephrosis. In conjunction with the patient's urinary tract infection I am worried for an infectious stone component. However the patient has no white count or fever and looks notably clinically well. I suspect the vomiting and the pain that she was having at home was secondary to this kidney stone. With the presence of the stone and the infection I do feel that she needs stone removal. We will give IV Levaquin here and contact the hospitalist for admission with potential urologic intervention today. I did discuss this with the family, and family did confirm that the patient is DNR/DNI. However they do feel that if intervention is possible and simple enough for the patient then they would like to proceed with that. 548 AM Discussed the case with the hospitalist Dr. Vela, he agrees with the asse ssment and plan. I have extensively reviewed the treatment plan with the patient. I have addressed all patient concerns at this time. I have also discussed the plan with the admitting physician and they agree with the current assessment and plan and have agreed to assume responsibility for the patient. All parties demonstrate verbal understanding and agreement with our assessment and plan at this time. The documentation in this chart was dictated using [employer] dictation software. Please excuse any dictation errors. FINDINGS: Lungs: Unremarkable. No consolidation. No masses. Pleural spaces: Unremarkable. No pneumothorax. No pleural effusion. Heart: Unremarkable. No cardiomegaly. No pericardial effusion. Coronary arteries: Moderate atherosclerotic calcifications of the coronary arteries. Lymph nodes: Unremarkable. No enlarged lymph nodes. Vasculature: Unremarkable. No aortic aneurysm. Diaphragm: Tiny hiatal hernia. Bones/joints: Unremarkable. No acute fracture. Soft tissues: Unremarkable. IMPRESSION: No acute finding FINDINGS: Liver: Normal. No mass. Gallbladder and bile ducts: Normal. No calcified stones. No ductal dilation. Pancreas: Normal. No ductal dilation. Spleen: Normal. No splenomegaly. Adrenal glands: Normal. No mass. Kidneys and ureters: 8 mm calculus in the right distal ureter with moderate right hydroureteronephrosis. Nonobstructing renal calculi. Stomach and bowel: Colonic diverticula. Appendix: No evidence of appendicitis. Intraperitoneal space: Unremarkable. No free air. No significant fluid collection. Vasculature: Unremarkable. No abdominal aortic aneurysm. Lymph nodes: Unremarkable. No enlarged lymph nodes. Urinary bladder: Unremarkable as visualized. Reproductive: Unremarkable as visualized. Bones/joints: Unremarkable. No acute fracture. Soft tissues: Unremarkable. IMPRESSION: 8 mm calculus in the right distal ureter with moderate right hydroureteronephrosis. Thank you for allowing us to participate in the care of your patient. Dictated and Authenticated by: Reid Pack MD 09/14/2022 3:49 AM Eastern Time ([place] & [place] G) HPI General Date/Time Provider Initiated Documentation: 09/14/22 02:19 . HPI Narrative: 82-year-old female with a past medical history of atrial fibrillation, severe Alzheimer's dementia, palliative care patient, who is DNR/DNI, with high cholesterol, high blood pressure, type 2 diabetes, who was recently seen and evaluated about 12 hours ago and was diagnosed with urinary tract infection pre sents currently for vomiting and cough. Daughter states that this evening the patient had a few more episodes of vomiting at home, and after the last when she had a notable coughing episode. She was short of breath and had a pretty notable cough per the daughter. It came to the ER for further assessment. Daughter states that the cough has improved since then. Patient has notable dementia and so she does not recall any of this. Patient's daughter states that the patient is doing much better in general at this point. No other complaints at this time. No other modifying factors. Related Data Home Medications Medication Instructions Recorded Confirmed donepezil 10 mg tablet 10 mg PO QHS #90 tabs 10/02/21 09/13/22 levothyroxine 100 mcg tablet 100 mcg PO DAILY #90 tabs 10/02/21 09/13/22 paroxetine HCl 20 mg tablet 20 mg PO DAILY #30 tabs 10/22/21 09/13/22 rivaroxaban 20 mg tablet (Xarelto) 20 mg PO DAILY #90 tabs 10/23/21 09/13/22 atorvastatin 40 mg tablet 40 mg PO QPM #90 tabs 05/31/22 01/08/23 lisinopril 20 mg tablet 20 mg PO DAILY #90 tabs 02/03/22 09/13/22 metformin 1,000 mg tablet 1,000 mg PO BID #180 tabs 07/17/22 09/13/22 metoprolol tartrate 25 mg tablet 12.5 mg PO BID #90 tabs 07/27/22 09/13/22 nystatin 100,000 unit/gram topical 1 applic topical BID PRN skin 07/27/22 09/13/22 powder irritation #60 grams levofloxacin 750 mg tablet 750 mg PO DAILY #5 tabs 09/13/22 Previous Rx's Medication Instructions Recorded donepezil 10 mg tablet 10 mg PO QHS #90 tabs 10/02/21 levothyroxine 100 mcg tablet 100 mcg PO DAILY #90 tabs 10/02/21 paroxetine HCl 20 mg tablet 20 mg PO DAILY #30 tabs 10/22/21 rivaroxaban 20 mg tablet (Xarelto) 20 mg PO DAILY #90 tabs 10/23/21 atorvastatin 40 mg tablet 40 mg PO QPM #90 tabs 02/03/22 lisinopril 20 mg tablet 20 mg PO DAILY #90 tabs 02/03/22 metformin 1,000 mg tablet 1,000 mg PO BID #180 tabs 07/17/22 metoprolol tartrate 25 mg tablet 12.5 mg PO BID #90 tabs 07/27/22 nystatin 100,000 unit/gram topical 1 applic topical BID PRN skin 07/27/22 powder irritation #60 grams levofloxacin 750 mg tablet 750 mg PO DAILY #5 tabs 09/13/22 Allergies Allergy/AdvReac Type Severity Reaction Status Date / Time Penicillins Allergy Skin Rash Verified 09/13/22 12:51 General ALANNA: 4 Review of Systems All systems reviewed & are unremarkable except as noted in HPI and below PFSH All Active Problems (Updated 09/14/22 @ 04:12 by Johnnie Mendoza DO) Acute UTI (Acute) Kidney stone on right side (Acute) Acute UTI (Acute) DNR (do not resuscitate) (Acute) Poor appetite (Acute) Palliative care patient (Acute) Glaucoma (Chronic) Alzheimer's dementia (Chronic) Atrial fibrillation (Chronic) Medical History Congestive heart failure Diabetes mellitus GI bleed HTN (hypertension) Hx of hyperlipidemia Hypothyroidism Family History Father Heart disease Hypertension Social History Smoking/Tobacco Use Status: Former Tobacco Use Smoking risk assessment performed?: Yes Alcohol Intake: never Drug use: Never Substance use type: does not use Adopted: No Caregiver/Support person: Yes Foster care: No Household members: family Housing: house Number of Children: 2 number of grandchildren: 4 Communication Needs: None Education Level: high school Do you need help understanding health information?: Always current occupation: Retired Pets and animals: Yes (1) Pets and animals: cat(s) Sexually active: No Do you think of yourself as: straight/heterosexual Current gender identity: female What is your relationship status?: How often do you talk on the phone with friends or family?: three or more times per week How often do you get together with friends or relatives?: three or more times per week Do you belong to any clubs or organized social groups?: no Panel score (0-1 are the most socially isolated patients): 1 Debo/Moravian: Zoroastrianism Special debo needs: No Seatbelt use: always Drive intox or ride w/intox drivers license examiner: No Do you feel safe at home: Yes Do you feel safe in your relationship?: Yes Exam Narrative Exam Narrative: 1.Const: Well-nourished, Well-developed, appearing stated age 2.Eyes: PERRL, no conjunctival injection, and symmetrical lids. 3.ENT: Atraumatic external nose and ears. Moist MM. Neck: Symmetric, trachea midline, No thyromegaly. 4.CVS: +S1/S2, No murmurs or gallops. Peripheral pulses 2+ and equal in all extremities. Brisk capillary refill in all extremities. 5.RESP: Unlabored respiratory effort. Minimal scattered rhonchi. No wheezes or rales. 6.GI: Soft, Nontender/Nondistended, No hepatosplenomegaly. No guarding or rebound. 7.MSK: Normocephalic/Atraumatic, Extremities w/o deformity or ttp No cyanosis or clubbing, Normal movement of all extremities 8.Skin: Warm, Dry. No rashes or lesions. 9.Neuro: director of academic support II-XII grossly intact. Sensation grossly intact, no focal neurologic deficits. 10.Psych: (AAO) x3. Appropriate mood and affect
[2022-09-14 03:02] LABS: Abs Immature Grans 0.04 10^3/uL (0.0-0.06); Absolute Basophil Count 0.03 10^3/uL (0.0-0.2); Absolute Eosinophil Count 0.02 10^3/uL (0.0-0.7); Absolute Lymphocyte Count 0.75 10^3/uL (1.2-3.4); Absolute Monocyte Count 0.66 10^3/uL (0.1-0.8); Absolute Neutrophil Count 6.55 10^3/uL (1.2-6.7); Basophils % 0.4; Eosinophils % 0.2; HCT 31.1 % (36.0-46.0); HGB 9.7 g/dL (11.2-15.7); Immature Grans % 0.5; Lymphocytes % 9.3; MCH 26.7 pg (27.0-33.0); MCHC 31.2 % (32.0-36.0); MCV 86 fL (80-95); MPV 10.6 fL (8.0-11.0); Monocytes % 8.2; Neutrophils % 81.4; Platelet Count 210 10^3/uL (130-400); RBC 3.63 10^6/uL (3.93-5.22); RDW 15.4 % (11.7-14.6); RDW-SD 48.3 fL; WBC 8.05 10^3/uL (4.4-10.8)
[2022-09-14 03:16] LABS: ALT 9 U/L (14-59); AST 16 U/L (15-37); Alkaline Phosphatase 81 U/L (46-116); Anion Gap 16.5 mmol/L (3-11); BUN 23 mg/dL (7-18); Bilirubin, Total 0.9 mg/dL (0.2-1.0); CO2 22.5 mmol/L (21.0-32.0); CREATININE 1.8 mg/dL (0.55-1.02); Calcium 9.2 mg/dL (8.5-10.1); Chloride 98 mmol/L (98-107); Estimated GFR 28.13 (mL/min/1.73m2); Glucose 168 mg/dL (74-106); Potassium 3.5 mmol/L (3.5-5.1); Sodium 137 mmol/L (136-145)
--- NOTE | 2022-09-14 03:50 | DI.VRAD_ITS ---
PROCEDURE INFORMATION: Exam: CT Chest Without Contrast; Diagnostic Exam date and time: 09/14/2022 3:09 AM Age: 82 years old Clinical indication: Cough and shortness of breath; Patient HX: Vomiting, cough, SOB, R/O obstruction/aspiration TECHNIQUE: Imaging protocol: Diagnostic computed tomography of the chest without contrast. Radiation optimization: All CT scans at this facility use at least one of these dose optimization techniques: automated exposure control; mA and/or kV adjustment per patient size (includes targeted exams where dose is matched to clinical indication); or iterative reconstruction. COMPARISON: CR XR PORTABLE CHEST AP 05/28/2022 3:01 PM FINDINGS: Lungs: Unremarkable. No consolidation. No masses. Pleural spaces: Unremarkable. No pneumothorax. No pleural effusion. Heart: Unremarkable. No cardiomegaly. No pericardial effusion. Coronary arteries: Moderate atherosclerotic calcifications of the coronary arteries. Lymph nodes: Unremarkable. No enlarged lymph nodes. Vasculature: Unremarkable. No aortic aneurysm. Diaphragm: Tiny hiatal hernia. Bones/joints: Unremarkable. No acute fracture. Soft tissues: Unremarkable. IMPRESSION: No acute finding. PROCEDURE INFORMATION: Exam: CT Abdomen And Pelvis Without Contrast Exam date and time: 09/14/2022 3:09 AM Age: 82 years old Clinical indication: Cough and shortness of breath; Patient HX: Vomiting, cough, SOB, R/O obstruction/aspiration TECHNIQUE: Imaging protocol: Computed tomography of the abdomen and pelvis without contrast. Radiation optimization: All CT scans at this facility use at least one of these dose optimization techniques: automated exposure control; mA and/or kV adjustment per patient size (includes targeted exams where dose is matched to clinical indication); or iterative reconstruction. COMPARISON: CT ABDOMEN PELVIS WO 05/28/2022 5:52 PM FINDINGS: Liver: Normal. No mass. Gallbladder and bile ducts: Normal. No calcified stones. No ductal dilation. Pancreas: Normal. No ductal dilation. Spleen: Normal. No splenomegaly. Adrenal glands: Normal. No mass. Kidneys and ureters: 8 mm calculus in the right distal ureter with moderate right hydroureteronephrosis. Nonobstructing renal calculi. Stomach and bowel: Colonic diverticula. Appendix: No evidence of appendicitis. Intraperitoneal space: Unremarkable. No free air. No significant fluid collection. Vasculature: Unremarkable. No abdominal aortic aneurysm. Lymph nodes: Unremarkable. No enlarged lymph nodes. Urinary bladder: Unremarkable as visualized. Reproductive: Unremarkable as visualized. Bones/joints: Unremarkable. No acute fracture. Soft tissues: Unremarkable. IMPRESSION: 8 mm calculus in the right distal ureter with moderate right hydroureteronephrosis. Dictated and Authenticated by: Reid Pack MD. Ordering:ENRIQUE Blair MD
[2022-09-14 04:15] LABS: Source Nasal/Nares
[2022-09-14 04:47] LABS: COVID-19 PCR Negative (Negative)
[2022-09-14] MEDS: Normal Saline 500 ML IV (04:48)
[2022-09-14] MEDS: levoFLOXacin 750 MG/150 ML BAG 100 MG IVPB (04:53)
--- NOTE | 2022-09-14 07:06 | W.ANESPRE ---
General Info Date of Service Date Performed: 09/14/22 Height: 5 ft 5 in Weight: 63.3 kg Body Mass Index (BMI): 23.2 Surgical Procedure: Operation Date: 09/14/22 11:25 Proposed Procedure Side Surgeon p Cystoscopy/Retrograde/Stent Placement Right Corey Ingram MD Meds Allergies and Home Medications Allergies Allergy/AdvReac Type Severity Reaction Status Date / Time Penicillins Allergy Skin Rash Verified 09/13/22 12:51 Home Medication Medication Instructions Recorded donepezil 10 mg tablet 10 mg PO QHS #90 tabs 10/02/21 levothyroxine 100 mcg tablet 100 mcg PO DAILY #90 tabs 10/02/21 paroxetine HCl 20 mg tablet 20 mg PO DAILY #30 tabs 10/22/21 rivaroxaban 20 mg tablet (Xarelto) 20 mg PO DAILY #90 tabs 10/23/21 metformin 1,000 mg tablet 1,000 mg PO BID #180 tabs 07/17/22 metoprolol tartrate 25 mg tablet 12.5 mg PO BID #90 tabs 07/27/22 nystatin 100,000 unit/gram topical 1 applic topical BID PRN skin 07/27/22 powder irritation #60 grams levofloxacin 750 mg tablet 750 mg PO DAILY #5 tabs 09/13/22 atorvastatin 40 mg tablet 40 mg PO DAILY AM 09/14/22 lisinopril 20 mg tablet 20 mg PO 4-8XD 09/14/22 Current Visit Medications: Current Medications Generic Name Dose Route Start Last Admin Trade Name Freq PRN Reason Stop Dose Admin Acetaminophen 0 mg 09/14/22 06:50 Acetaminophen 325 Mg Tab PO Q4H PRN PRN Atorvastatin Calcium 40 mg 09/14/22 20:00 Atorvastatin 40 Mg Tab PO QPM [facility] Dimethicone/Zinc Oxide 0 gm 09/14/22 06:50 Maria Esther Protect Cream 142 Gm Tube TP PRN PRN Sodium Chloride 500 mls @ 0 mls/hr 09/14/22 05:44 Saline 500ml Bag IV PRN PRN As Directed Sodium Chloride 1,000 mls @ 75 mls/hr 09/14/22 07:00 Saline 1000ml Bag IV INFUSION MARIELA IV Miscellaneous Supplies 1 each 09/14/22 05:45 Iv Access IV DIRECTED [facility] Levothyroxine Sodium 100 mcg 09/14/22 08:30 Levothyroxine 100 Mcg Tab PO DAILY [facility] Metoprolol Tartrate 12.5 mg 09/14/22 08:30 Metoprolol 12.5 Mg Tab PO BID MARIELA Non-Formulary Medication 10 mg 09/14/22 07:00 Donepezil PO QHS MARIELA Nystatin gm 09/14/22 06:59 Nystatin Powder 15 Gm Jar TP BID PRN skin irritation Paroxetine HCl 20 mg 09/14/22 08:30 Paroxetine 20 Mg Tab PO DAILY MARIELA Polyethylene Glycol 17 gm 09/14/22 06:50 Polyethylene Glycol 3350 17 Gm Packet PO DAILY PRN PRN Constipation Sodium Chloride 0 ml 09/14/22 05:44 Normal Saline Flush 10 Ml Syr IVP PRN PRN PFSH Active Problems Active Problems: Problem Status Onset Code Acute UTI N39.0 Kidney stone on right side N20.0 Acute UTI N39.0 DNR (do not resuscitate) Z66 Poor appetite R63.0 Palliative care patient Z51.5 Glaucoma H40.9 Alzheimer's dementia G30.9, F02.80 Atrial fibrillation I48.91 Medical History Medical History Congestive heart failure Diabetes mellitus GI bleed HTN (hypertension) Hx of hyperlipidemia Hypothyroidism Tobacco Smoking/Tobacco Use Status: Former Tobacco Use Alcohol Alcohol Intake: never Substance Use Substance use: Never Substance use type: does not use Vital Signs and Lab Results Vital Signs Most Recent Vital Signs in EMR: Most Recent Vital Signs Temp Pulse Resp BP Pulse Ox 36.4 C L 111 H 24 143/92 H 98 09/14/22 02:27 09/14/22 06:46 09/14/22 02:27 09/14/22 06:46 09/14/22 02:27 Lab Results Result Diagrams: 09/14/22 02:50 09/14/22 02:50 Blood Type / Crossmatch: No Data to Display Complete Blood Count: White Blood Count 8.05 10^3/uL (4.4-10.8) 09/14/22 02:50 Red Blood Count 3.63 10^6/uL (3.93-5.22) L 09/14/22 02:50 Hemoglobin 9.7 g/dL (11.2-15.7) L 09/14/22 02:50 Hematocrit 31.1 % (36.0-46.0) L 09/14/22 02:50 Platelet Count 210 10^3/uL (130-400) 09/14/22 02:50 Complete Metabolic Panel: Sodium 137 mmol/L (136-145) 09/14/22 02:50 Potassium 3.5 mmol/L (3.5-5.1) 09/14/22 02:50 Chloride 98 mmol/L (98-107) 09/14/22 02:50 Carbon Dioxide 22.5 mmol/L (21.0-32.0) 09/14/22 02:50 BUN 23 mg/dL (7-18) H 09/14/22 02:50 Creatinine 1.8 mg/dL (0.55-1.02) H 09/14/22 02:50 Est GFR (CKD-EPI 2020) 28.13 (mL/min/1.73m2) 09/14/22 02:50 Calcium 9.2 mg/dL (8.5-10.1) 09/14/22 02:50 Albumin 4.0 g/dL (3.4-5.0) 09/14/22 02:50 Glucose 168 mg/dL (74-106) H 09/14/22 02:50 Liver Function Panel: Alanine Aminotransferase (ALT/SGPT) 9 U/L (14-59) L 09/14/22 02:50 Aspartate Amino Transf (AST/SGOT) 16 U/L (15-37) 09/14/22 02:50 Coagulation Panel: No Data to Display Cardiac Panel: No Data to Display Arterial Blood Gas: No Data to Display Venous Blood Gas: No Data to Display Pancreas Panel: No Data to Display Thyroid Panel: No Data to Display Infectious Disease: Coronavirus (COVID-19)(PCR) Negative (Negative) 09/14/22 04:10 Coronavirus 2019 Source Nasal/Nares 09/14/22 04:10 Blood Cultures: No Data to Display Toxicology Panel: No Data to Display Imaging and Studies Imaging and Studies Study information below may be from another EMR and interpreted by another provider. Please see original notes in EMR for more complete details. EKG Summary: 05/28: afib, LVH, QTc 521. LAD with LAFB. Echocardiogram Summary: 10/2017: LVEF 60-65%, normal LV fxn. trace MR, trace AR, trace TR, Anesthesia Assessment and Plan Anesthesia History Personal History: No History of Anesthesia Complications Family History: No Family History of Anesthesia Complications Exercise Tolerance Exercise Tolerance: Metabolic Equivalents>4 Pertinent Negatives Pertinent Negatives: No Symptoms of GERD Cardiac & Pulmonary Exam Cardiac Exam: Other Pulmonary Exam: Clear Bilateral Breath Sounds Implantable Cardiac Device Does patient have a Pacemaker or an ICD?: No Airway Exam Known Difficult Airway: No Mallampati Class: 1 Mouth Opening: Normal (> 3cm) Thyromental Distance: Greater than 3 cm Neck Range of Motion: Full ROM Neck Circumference: Normal Teeth Condition: Removable Dentures/Plates Upper, Removable Dentures/Plates Lower and Edentulous ASA Classification ASA Score: ASA 3 Emergency Case?: No NPO Status NPO Status: NPO Clears >2 hours, Solids >8 hours Anesthesia Plan Resuscitation Status: DNR Modified During Perioperative Period Resuscitation Modifications: CPR Refused and Pt. Requests for Clinical Judgement to be Used Anesthesia Technique: General Anesthesia Airway Planned: Natural Airway Monitors Used: Standard Monitors Preoperative Comments:: 82 female with UTI and obstruction. came in last night via the ED. has received levofloxacin and a 500 mL bolus. On chatting with her she is very pleasant, but does not seem to know where she is or why she is here. Sig PMHx: Alzheimer/dementia (donepezil), CHF, HTN (lisinopril, metoprolol), hypothyroid (on replacement), afib (dilt, rivaroxaban), DM, former smoker, GFR 28.
--- NOTE | 2022-09-14 08:14 | W.PM.HP.N ---
Date of service: 09/14/22 Time of Service: 08:14 Assessment and Plan Assessment and plan (1) Kidney stone on right side: Status: Acute Assessment and plan: Currently w/o pain. No further emesis since presentation to ED. Urology consulted. IV hydration. Address pain control should she develop pain. Phenergan prn for nausea. (2) Acute UTI: Status: Acute Assessment and plan: No elevated WBCs. Afebrile. Not clear if infection is present. Given Levaquin in ED. (3) Palliative care patient: Status: Acute Assessment and plan: Consider consulting. (4) Diabetes mellitus: Assessment and plan: Holding metformin. Glucose monitoring and SS correction insulin coverage. (5) HTN (hypertension): Assessment and plan: Cont. metoprolol. Hold lisinopril d/t DARYA. Monitor. (6) Hypothyroidism: Assessment and plan: Cont levothryoxine. (7) Alzheimer's dementia: Status: Chronic Assessment and plan: Cont donepezil. (8) Atrial fibrillation: Status: Chronic Assessment and plan: Cont metoprolol for rate control Hold rivaroxaban. Qualifiers: Atrial fibrillation type: paroxysmal Qualified Code(s): I48.0 - Paroxysmal atrial fibrillation (9) DARYA (acute kidney injury): Status: Resolved Assessment and plan: D/t post-renal obstruction and volume depletion from emesis. Hydration. Monitor. History of Present Illness History of Present Illness Chief Complaint: Emesis Narrative: This is an 82-year-old female with a past medical history of atrial fibrillation on rivaroxaban, severe Alzheimer's dementia,HTN, HLD, DM2 palliative care patient, who is DNR/DNI, who was recently seen and evaluated about 12 hours prior to presentation and diagnosed with urinary tract infection. She wasstarted on Levaquin and discharged, She presented back to the ED with vomiting and cough.? Daughter noted that the patient had a few more episodes of vomiting at home, and after the last when she had a notable coughing episode.? She was short of breath. ?Daughter stated that the cough had improved by the time of presentation.? Patient has notable dementia and so she does not recall any of this.? She denies any pain and no current nausea. CT chest/abd showed no acute pulmonary process. There is an 8 mm calculus in the right distal ureter with moderate right hydroureteronephros. No known h/o prior nephrolithiasis. Urine with small leuk. est., + blood and >50 RBC's. No bacteri. 5-10 WBCs. She was given a 750mg IV dose of levaquin in the ED. Admitted for management and Urology consult. Review of Systems All systems reviewed & are unremarkable except as noted in HPI and below PFSH All Active Problems Acute UTI (Acute) Kidney stone on right side (Acute) Acute UTI (Acute) DNR (do not resuscitate) (Acute) Poor appetite (Acute) Palliative care patient (Acute) Glaucoma (Chronic) Alzheimer's dementia (Chronic) Atrial fibrillation (Chronic) Medical History Congestive heart failure Diabetes mellitus GI bleed HTN (hypertension) Hx of hyperlipidemia Hypothyroidism Family History Father Heart disease Hypertension Social History Smoking/Tobacco Use Status: Former Tobacco Use Smoking risk assessment performed?: Yes Alcohol Intake: never Drug use: Never Substance use type: does not use Adopted: No Caregiver/Support person: Yes Foster care: No Household members: family Housing: house Number of Children: 2 number of grandchildren: 4 Communication Needs: None Education Level: high school Do you need help understanding health information?: Always current occupation: Retired Pets and animals: Yes (1) Pets and animals: cat(s) Sexually active: No Do you think of yourself as: straight/heterosexual Current gender identity: female What is your relationship status?: How often do you talk on the phone with friends or family?: three or more times per week How often do you get together with friends or relatives?: three or more times per week Do you belong to any clubs or organized social groups?: no Panel score (0-1 are the most socially isolated patients): 1 Debo/Pentecostalism: Holiness Special debo needs: No Seatbelt use: always Drive 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 ride 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 Meds Allergies and Home Medications Allergies Allergy/AdvReac Type Severity Reaction Status Date / Time Penicillins Allergy Skin Rash Verified 09/13/22 12:51 Home Medications Medication Instructions Recorded Confirmed Type donepezil 10 mg tablet 10 mg PO QHS #90 tabs 10/02/21 09/14/22 Rx levothyroxine 100 mcg tablet 100 mcg PO DAILY #90 tabs 10/02/21 09/14/22 Rx paroxetine HCl 20 mg tablet 20 mg PO DAILY #30 tabs 10/22/21 09/14/22 Rx rivaroxaban 20 mg tablet (Xarelto) 20 mg PO DAILY #90 tabs 10/23/21 09/14/22 Rx metformin 1,000 mg tablet 1,000 mg PO BID #180 tabs 07/17/22 09/14/22 Rx metoprolol tartrate 25 mg tablet 12.5 mg PO BID #90 tabs 07/27/22 09/14/22 Rx nystatin 100,000 unit/gram topical 1 applic topical BID PRN skin 07/27/22 09/14/22 Rx powder irritation #60 grams levofloxacin 750 mg tablet 750 mg PO DAILY #5 tabs 09/13/22 09/14/22 Rx atorvastatin 40 mg tablet 40 mg PO DAILY AM 09/14/22 09/14/22 History lisinopril 20 mg tablet 20 mg PO 4-8XD 09/14/22 09/14/22 History Exam Narrative Exam Narrative: Very pleasant elderly female with no recollection of why she was brought to the ED or where she is. Does not appear distressed by her confusion. Const General: cooperative and no acute distress Orientation: alert and oriented to person (Self. When her daughter was mentioned she asked who is my daughter?) [facility] Head: normal to inspection Ears: hearing grossly normal bilaterally Eyes General: appearance normal, both eyes and all related structures Sclera: sclerae normal Resp Effort & Inspection: normal respiratory effort Auscultation: clear to auscultation bilaterally Cardio Rate: tachycardic Rhythm: abnormal rhythm irregularly irregular GI Inspection: non-distended Palpation: not soft and nontender Skin General skin exam: no rashes or lesions noted Neuro General: no focal motor deficits Cranial Nerves: facial strength normal Speech: speech normal Extrem General: no pedal edema and no calf tenderness Psych Appearance: grossly normal Affect: normal affect Results Labs Result diagrams: 09/14/22 02:50 09/14/22 02:50 Labs: Laboratory Results - last 24 hr 09/14/22 09/14/22 09/14/22 02:50 02:50 04:10 WBC 8.05 RBC 3.63 L Hgb 9.7 L Hct 31.1 L MCV 86 MCH 26.7 L MCHC 31.2 L RDW 15.4 H Plt Count 210 MPV 10.6 Immature Gran % 0.5 Neutrophils % 81.4 Lymphocytes % 9.3 Monocytes % 8.2 Eosinophils % 0.2 Basophils % 0.4 Nucleated RBC % 0.0 Absolute Neutrophils 6.55 Absolute Lymphocytes 0.75 L Absolute Monocytes 0.66 Absolute Eosinophils 0.02 Absolute Basophils 0.03 Sodium 137 Potassium 3.5 Chloride 98 Carbon Dioxide 22.5 Anion Gap 16.5 H BUN 23 H Creatinine 1.8 H Est GFR (CKD-EPI 2020) 28.13 Glucose 168 H Calcium 9.2 Total Bilirubin 0.9 AST 16 ALT 9 L Alkaline Phosphatase 81 Total Protein 8.0 Albumin 4.0 COVID-19 Source Nasal/Nares SARS-CoV-2 (PCR) Negative Last Vital Signs Temp 36.4 C L 09/14/22 02:27 Pulse 111 H 09/14/22 06:46 Resp 24 09/14/22 02:27 BP 143/92 H 09/14/22 06:46 Pulse Ox 98 09/14/22 02:27 Time Spent Time spent with Patient: 40-54 minutes Time was spent: preparing to see the patient(eg.review tests), obtaining and/or reviewing separately otained hiistory, ordering medications,tests, procedures, referring, communicating with other health healthcare administration intern and indepentently interpreting results
[2022-09-14] MEDS: Levothyroxine 100 MCG TAB PO (09:01)
[2022-09-14] MEDS: Metoprolol 12.5 MG TAB PO ×2 (09:01→19:25)
[2022-09-14] MEDS: Normal Saline 1,000 ML 75 ML IV (09:10)
[2022-09-14] MEDS: cefTRIAXone 2 GM/50 ML BAG IVPB (11:21)
[2022-09-14] MEDS: Lactated Ringers 1,000 ML 75 ML IV (11:35)
--- NOTE | 2022-09-14 11:45 | DI.RAD_ITS ---
Exam(s) XR RETROGRADE IN OR EXAM: XR RETROGRADE IN OR CLINICAL HISTORY: right kidney stone. TECHNIQUE: Fluoroscopy was provided for the referring physician for guidance with performing retrogr jazmine procedure. COMPARISON: No exams were available for comparison FINDINGS: Please see procedure note for details. Fluoro time: 14.1 seconds RADIATION DOSE DELIVERED: eleazar Kaba=2.13 mGy
--- NOTE | 2022-09-14 12:37 | W.UROLOGYCON ---
Date of service: 09/14/22 Time of Service: 12:37 Assessment and Plan Assessment and plan (1) Kidney stone on right side: Status: Acute (2) Acute UTI: Status: Acute Assessment and plan: With a combination of an infection and hydronephrosis, we need to place a ureteral stent to allow any infected urine to drain from the right kidney. We do not normally recommend treating the stone while an active infection is ongoing. Once her culture and sensitivities are available and she has been on culture specific antibiotics, we can make arrangements for a return to the operating room for ureteroscopy and holmium laser lithotripsy of her stone. History of Present Illness History of Present Illness Chief Complaint: Right hydronephrosis Narrative: This is an 82-year-old woman who has a history of dementia. She herself is not able to provide much medical history. She presented to the emergency department yesterday with a short episode of lower abdominal pain and nausea. At that point, she did not appear septic. Her urine sample was suggestive of a urinary tract infection. She was discharged on oral Levaquin. She came back to the emergency department later on in the day with vomiting. She underwent a CT scan and was found to have a right ureteral stone with hydronephrosis. She is not able to tell me if she has ever had kidney stone disease in the past. Review of Systems Unobtainable due to mental status PFSH All Active Problems Acute UTI (Acute) Kidney stone on right side (Acute) Acute UTI (Acute) DNR (do not resuscitate) (Acute) Poor appetite (Acute) Palliative care patient (Acute) Glaucoma (Chronic) Alzheimer's dementia (Chronic) Atrial fibrillation (Chronic) Medical History Congestive heart failure Diabetes mellitus GI bleed HTN (hypertension) Hx of hyperlipidemia Hypothyroidism Family History Father Heart disease Hypertension Social History Smoking/Tobacco Use Status: Former Tobacco Use Smoking risk assessment performed?: Yes Alcohol Intake: never Drug use: Never Substance use type: does not use Adopted: No Caregiver/Support person: Yes Foster care: No Household members: family Housing: house Number of Children: 2 number of grandchildren: 4 Communication Needs: None Education Level: high school Do you need help understanding health information?: Always current occupation: Retired Pets and animals: Yes (1) Pets and animals: cat(s) Sexually active: No Do you think of yourself as: straight/heterosexual Current gender identity: female What is your relationship status?: How often do you talk on the phone with friends or family?: three or more times per week How often do you get together with friends or relatives?: three or more times per week Do you belong to any clubs or organized social groups?: no Panel score (0-1 are the most socially isolated patients): 1 Debo/Muslim: Amish Special debo needs: No Seatbelt use: always Drive intox or ride w/intox 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 The right kidney and ureter are dilated down to a fairly large right distal ureteral stone Results Last Vital Signs Temp 36.7 C 09/14/22 12:13 Pulse 107 H 09/14/22 12:13 Resp 18 09/14/22 12:13 BP 144/70 H 09/14/22 12:13 Pulse Ox 97 09/14/22 12:13 Labs Result diagrams: 09/14/22 02:50 09/14/22 02:50 Labs: Laboratory Results - last 24 hr 09/14/22 09/14/22 09/14/22 02:50 02:50 04:10 WBC 8.05 RBC 3.63 L Hgb 9.7 L Hct 31.1 L MCV 86 MCH 26.7 L MCHC 31.2 L RDW 15.4 H Plt Count 210 MPV 10.6 Immature Gran % 0.5 Neutrophils % 81.4 Lymphocytes % 9.3 Monocytes % 8.2 Eosinophils % 0.2 Basophils % 0.4 Nucleated RBC % 0.0 Absolute Neutrophils 6.55 Absolute Lymphocytes 0.75 L Absolute Monocytes 0.66 Absolute Eosinophils 0.02 Absolute Basophils 0.03 Sodium 137 Potassium 3.5 Chloride 98 Carbon Dioxide 22.5 Anion Gap 16.5 H BUN 23 H Creatinine 1.8 H Est GFR (CKD-EPI 2020) 28.13 Glucose 168 H Calcium 9.2 Magnesium Total Bilirubin 0.9 AST 16 ALT 9 L Alkaline Phosphatase 81 Total Protein 8.0 Albumin 4.0 COVID-19 Source Nasal/Nares SARS-CoV-2 (PCR) Negative 09/14/22 11:15 WBC RBC Hgb Hct MCV MCH MCHC RDW Plt Count MPV Immature Gran % Neutrophils % Lymphocytes % Monocytes % Eosinophils % Basophils % Nucleated RBC % Absolute Neutrophils Absolute Lymphocytes Absolute Monocytes Absolute Eosinophils Absolute Basophils Sodium Potassium Chloride Carbon Dioxide Anion Gap BUN Creatinine Est GFR (CKD-EPI 2020) Glucose Calcium Magnesium 1.0 L Total Bilirubin AST ALT Alkaline Phosphatase Total Protein Albumin COVID-19 Source SARS-CoV-2 (PCR)
[2022-09-14] MEDS: Lidocaine 2% Jelly 6 ML SYR (12:54)
[2022-09-14] MEDS: Omnipaque 300 MG/ML 50 ML BTL (13:00)
--- NOTE | 2022-09-14 13:31 | W.ANESPOSTOP ---
Postoperative Evaluation Date, Time and Location Date Performed: 09/14/22 Time Performed: 13:32 Patient Location: PACU Vital Signs Most Recent Imported Vital Signs: Most Recent Vital Signs Temp Pulse Resp BP Pulse Ox 36.4 C L 94 H 13 119/64 97 09/14/22 13:20 09/14/22 13:20 09/14/22 13:20 09/14/22 13:20 09/14/22 13:20 Pain Score Most Recent Pain Score: Most Recent Pain Score Pain Level 0 09/14/22 13:20 Assessment Mental Status: Arousable with meaningful communication Airway and Respiratory Function: Patent airway with normal (patient baseline) respiratory exam Cardiovascular Function: Hemodynamically Stable Hydration Status: Adequately Hydrated Nausea & Vomiting: No Nausea or Vomiting Pain: Pain is tolerable per patient Peripheral Nerve Block: Patient did not receive a nerve block
--- NOTE | 2022-09-14 13:46 | W.PM.OP ---
Date of service: 09/14/22 Time of Service: 13:46 Operative Note Operative Note DATE OF PROCEDURE: 09/14/22 PRE-OP DIAGNOSIS: Right ureteral stone POST-OP DIAGNOSIS: same UTI PROCEDURE: Cystoscopy, right retrograde pyelogram, insert right ureteral stent SURGEON: Corey Ingram ANESTHESIA TYPE: General:No Airway Refer to Anesthesia Record ESTIMATED BLOOD LOSS: 0 PATHOLOGY: none sent Patient was transported to: PACU Patient's condition: stable Implants: 6 Estonian by 22 to 30 cm right ureteral stent Indications: This is an 82-year-old woman who presented with lower abdominal pain and nausea. She was found to have a urine sample suggestive of a urinary tract infection. She was treated with the Levaquin. She returned to the emergency department with worsening pain, nausea and vomiting. She had a CT scan done and a right distal ureteral stone with hydronephrosis was identified. She presents now for placement of a ureteral stent Findings: Right ureter dilated down to a filling defect in the distal ureter Procedure Description: The patient was brought to the operating room on 09/14/2022. She was already on antibiotics. After successful induction of general anesthesia, he was placed in the dorsal lithotomy position. Her genitalia was prepped and draped. 2% Xylocaine jelly was instilled into the urethra to act as a local anesthetic. A 22 Estonian rigid cystoscope was passed through the urethra into the bladder. The bladder was inspected with a 30 degree lens. The base of the bladder had distended consistent with a cystocele. The ureteral orifices appeared normal in configuration. I was able to cannulate the right ureteral orifice with a 6 Estonian access catheter. A retrograde pyelogram was obtained by injecting Omnipaque through the access catheter under fluoroscopic guidance. A filling defect was found in the right distal ureter and the ureter above this filling defect was dilated. I was able to pass a guidewire through the lumen of the access catheter of the remainder of the ureter. The access catheter was removed leaving the wire in place. A 6 Estonian variable length stent was advanced over the wire. The proximal end of the stent was curled in the renal pelvis and the distal end of the stent was curled in the bladder. The positioning of the stent was confirmed both fluoroscopically and cystoscopically. The patient tolerated this procedure well with no complications. She was taken to the recovery room in stable condition.
--- NOTE | 2022-09-14 13:46 | NUR.NOTE ---
pt is back in room 209 from PACU. Nursing Note:
--- NOTE | 2022-09-14 14:39 | PHA.REVIEW2 ---
Pharmacy Admission Review - Admission Clinical Review (Last Reviewed 09/14/22 @ 08:28 by Mo Vela MD) Acute UTI (Acute) Kidney stone on right side (Acute) Acute UTI (Acute) Palliative care patient (Acute) Penicillins Allergy (Verified 09/13/22 12:51) Skin Rash Resuscitation Status DNR/DNI Height 5 ft 5 in Weight 57.9 kg - Renal Dosing Renal Dosing: BUN 23 mg/dL (7-18) H 09/14/22 02:50 Creatinine 1.8 mg/dL (0.55-1.02) H 09/14/22 02:50 Medications needing adjustments: Reviewed List of meds needing interventions: eCrCl 22 ml/min - Anticoagulation Anticoagulation: Hgb 9.7 g/dL (11.2-15.7) L 09/14/22 02:50 Hct 31.1 % (36.0-46.0) L 09/14/22 02:50 Plt Count 210 10^3/uL (130-400) 09/14/22 02:50 Creatinine 1.8 mg/dL (0.55-1.02) H 09/14/22 02:50 DVT Prophylaxis: N/A Therapeutic Anticoagulation: Reviewed (Rivaroxaban is being held, going to OR today) - Opiate Usage Evaluate Pain Scale/Pains Meds: N/A (patient is currently not made of pain) - Relevant Labs Sodium 137 mmol/L (136-145) 09/14/22 02:50 Potassium 3.5 mmol/L (3.5-5.1) 09/14/22 02:50 Chloride 98 mmol/L (98-107) 09/14/22 02:50 Magnesium 1.0 mg/dL (1.8-2.4) L 09/14/22 11:15 Electrolytes, C-Reactive P, ESR: Intervened (Magnesium has not been replaced yet, will notify MD) - DM Control DM Control: Glucose 168 mg/dL (74-106) H 09/14/22 02:50 DM Control: Intervened (on metforming 1000mg BID at home, SS coverage has NOT been ordered - will notify MD) - Cardiac Review BP, HR, EF%: Reviewed - Qtc Review QTc: N/A - IV to PO Switch IV Medications: Reviewed - Home Meds Home Med List reviewed: Reviewed Relevent Home Meds Not ordered & why?: all ordered - Current meds Current Medication Order Review: Reviewed
[2022-09-14] MEDS: MAGNESIUM SULFATE 4 GM/100 ML BAG IVPB (16:25)
[2022-09-14] MEDS: Phenazopyridine 100 MG TAB PO ×2 (16:25→19:25)
--- NOTE | 2022-09-14 17:12 | W.PM.PROGNOT ---
Date of Service Date of service: 09/14/22 Time of Service: 17:12 Assessment and Plan Assessment and plan (1) Kidney stone on right side: Status: Acute Assessment and plan: Currently w/o pain. No further emesis since presentation to ED. Urology consulted: Dr Ingram: with a combination of an infection and hydronephrosis, we need to place a ureteral stent to allow any infected urine to drain from the right kidney.? We do not normally recommend treating the stone while an active infection is ongoing. Once her culture and sensitivities are available and she has been on culture specific antibiotics, we can make arrangements for a return to the operating room for ureteroscopy and holmium laser lithotripsy of her stone. IV hydration. Address pain control should she develop pain. Phenergan prn for nausea. (2) Acute UTI: Status: Acute Assessment and plan: No elevated WBCs. Afebrile. Not clear if infection is present. Given Levaquin in ED. (3) Palliative care patient: Status: Acute Assessment and plan: Consult pending (4) Diabetes mellitus: Assessment and plan: Holding metformin. Glucose monitoring and SS correction insulin coverage. Glucose 168 this am (5) HTN (hypertension): Assessment and plan: Cont. metoprolol. Hold lisinopril d/t DARYA. Monitor. 140s/70s (6) Hypothyroidism: Assessment and plan: Cont levothryoxine. TSH 0.85 05/2022 (7) Alzheimer's dementia: Status: Chronic Assessment and plan: Cont donepezil. Very confused; unable to discuss events, history, not oriented (8) Atrial fibrillation: Status: Chronic Assessment and plan: Cont metoprolol for rate control Hold rivaroxaban until procedure (resume tomorrow) Qualifiers: Atrial fibrillation type: paroxysmal Qualified Code(s): I48.0 - Paroxysmal atrial fibrillation (9) DARYA (acute kidney injury): Status: Resolved Assessment and plan: D/t post-renal obstruction and volume depletion from emesis. Hydration. Monitor. (10) DVT prophylaxis: Status: Acute Assessment and plan: Xarelto resume tomorrow 09/15/22 (11) Discharge planning issues: Status: Acute Assessment and plan: Home when stable Discussed with Dr Landry Subjective Subjective Patient reports: no new complaints Exam Narrative Exam Narrative: Very pleasant elderly female with no recollection of why she was brought to the ED or where she is. Does not appear distressed by her confusion. Const General: cooperative and no acute distress Orientation: alert and oriented to person (Self. When her daughter was mentioned she asked who is my daughter?) HENMT Head: normal to inspection Ears: hearing grossly normal bilaterally Eyes General: appearance normal, both eyes and all related structures Sclera: sclerae normal Resp Effort & Inspection: normal respiratory effort Auscultation: clear to auscultation bilaterally Cardio Rate: tachycardic Rhythm: abnormal rhythm irregularly irregular GI Inspection: non-distended Palpation: not soft and nontender Skin General skin exam: no rashes or lesions noted Neuro General: no focal motor deficits Cranial Nerves: facial strength normal Speech: speech normal Extrem General: no pedal edema and no calf tenderness Psych Appearance: grossly normal Affect: normal affect Objective Last Vital Signs Temp 36.7 C 09/14/22 14:15 Pulse 97 H 09/14/22 16:38 Resp 18 09/14/22 14:15 BP 142/76 H 09/14/22 14:15 Pulse Ox 99 09/14/22 14:15 Laboratory Results - last 24 hr 09/14/22 09/14/22 09/14/22 02:50 02:50 04:10 WBC 8.05 RBC 3.63 L Hgb 9.7 L Hct 31.1 L MCV 86 MCH 26.7 L MCHC 31.2 L RDW 15.4 H Plt Count 210 MPV 10.6 Immature Gran % 0.5 Neutrophils % 81.4 Lymphocytes % 9.3 Monocytes % 8.2 Eosinophils % 0.2 Basophils % 0.4 Nucleated RBC % 0.0 Absolute Neutrophils 6.55 Absolute Lymphocytes 0.75 L Absolute Monocytes 0.66 Absolute Eosinophils 0.02 Absolute Basophils 0.03 Sodium 137 Potassium 3.5 Chloride 98 Carbon Dioxide 22.5 Anion Gap 16.5 H BUN 23 H Creatinine 1.8 H Est GFR (CKD-EPI 2020) 28.13 Glucose 168 H Calcium 9.2 Magnesium Total Bilirubin 0.9 AST 16 ALT 9 L Alkaline Phosphatase 81 Total Protein 8.0 Albumin 4.0 COVID-19 Source Nasal/Nares SARS-CoV-2 (PCR) Negative 09/14/22 11:15 WBC RBC Hgb Hct MCV MCH MCHC RDW Plt Count MPV Immature Gran % Neutrophils % Lymphocytes % Monocytes % Eosinophils % Basophils % Nucleated RBC % Absolute Neutrophils Absolute Lymphocytes Absolute Monocytes Absolute Eosinophils Absolute Basophils Sodium Potassium Chloride Carbon Dioxide Anion Gap BUN Creatinine Est GFR (CKD-EPI 2020) Glucose Calcium Magnesium 1.0 L Total Bilirubin AST ALT Alkaline Phosphatase Total Protein Albumin COVID-19 Source SARS-CoV-2 (PCR) Time Spent with Patient Time Spent with Patient: 25-34 minutes Time was spent: preparing to see the patient(eg.review tests), obtaining and/or reviewing separately otained hiistory, ordering medications,tests, procedures, referring, communicating with other health after school caregiver, indepentently interpreting results, counseling the patient and care coordination
[2022-09-14] MEDS: Nystatin POWDER 15 GM JAR TP (19:25)
[2022-09-14] MEDS: Atorvastatin 40 MG TAB PO (19:25)
[2022-09-14] MEDS: Donepezil 5 MG TAB 10 MG PO (22:54)
[2022-09-15] VITALS (8 sets, daily range): BP systolic 125–155; BP diastolic 78–90; PULSE 87–135; RESP 16–18; TEMP 36.6–37.2; O2SAT 97–98
[2022-09-15] MEDS: Lactated Ringers 1,000 ML 75 ML IV (06:04)
[2022-09-15] MEDS: Levothyroxine 100 MCG TAB PO (06:04)
[2022-09-15 07:00] LABS: Abs Immature Grans 0.01 10^3/uL (0.0-0.06); Absolute Basophil Count 0.03 10^3/uL (0.0-0.2); Absolute Eosinophil Count 0.03 10^3/uL (0.0-0.7); Absolute Lymphocyte Count 1.12 10^3/uL (1.2-3.4); Absolute Neutrophil Count 2.75 10^3/uL (1.2-6.7); Basophils % 0.7; Eosinophils % 0.7; HCT 27.4 % (36.0-46.0); HGB 8.7 g/dL (11.2-15.7); Immature Grans % 0.2; Lymphocytes % 24.7; MCH 26.3 pg (27.0-33.0); MCHC 31.8 % (32.0-36.0); MCV 83 fL (80-95); MPV 10.8 fL (8.0-11.0); Monocytes % 13.2; Neutrophils % 60.5; RBC 3.31 10^6/uL (3.93-5.22); RDW 15.4 % (11.7-14.6); RDW-SD 47.1 fL; WBC 4.54 10^3/uL (4.4-10.8)
[2022-09-15 07:14] LABS: Magnesium 2.4 mg/dL (1.8-2.4)
[2022-09-15 07:15] LABS: Anion Gap 11.7 mmol/L (3-11); BUN 17 mg/dL (7-18); CO2 25.3 mmol/L (21.0-32.0); CREATININE 1.3 mg/dL (0.55-1.02); Calcium 8.9 mg/dL (8.5-10.1); Chloride 101 mmol/L (98-107); Estimated GFR 41.57 (mL/min/1.73m2); Glucose 117 mg/dL (74-106); Sodium 138 mmol/L (136-145)
[2022-09-15 07:18] LABS: Potassium 2.7 mmol/L (3.5-5.1)
[2022-09-15 07:24] LABS: Platelet Count 194 10^3/uL (130-400)
[2022-09-15 07:25] LABS: Diff Comment Diff Reviewed; Hypochromasia 2+; Poikilocytes 2+
[2022-09-15] MEDS: Potassium Chloride Liquid 20 MEQ PKT 40 MEQ PO (08:10)
[2022-09-15] MEDS: PARoxetine 20 MG TAB PO (08:11)
[2022-09-15] MEDS: POTASSIUM CHLORIDE 20 MEQ/100 ML BAG 50 MEQ IVPB ×2 (08:11→11:00)
[2022-09-15] MEDS: Phenazopyridine 100 MG TAB PO ×3 (08:11→19:37)
[2022-09-15] MEDS: Metoprolol 12.5 MG TAB PO ×2 (08:12→19:38)
[2022-09-15] MEDS: Rivaroxaban 10 MG TABLET 20 MG PO (08:12)
--- NOTE | 2022-09-15 10:21 | W.PM.PROGNOT ---
Date of Service Date of service: 09/15/22 Time of Service: 07:30 Assessment and Plan Assessment and plan (1) Kidney stone on right side: Status: Acute (2) Acute UTI: Status: Acute Assessment and plan: The stent is successfully placed and she remains on broad-spectrum antibiotics until her cultures are available. Once she no longer requires IV antibiotics, she can be discharged on oral antibiotics and we can bring her back as an outpatient to do ureteroscopy and holmium laser lithotripsy of her stone. Subjective Subjective Interval history since last seen: The patient was confused helped provide an adequate history Exam Narrative Exam Narrative: She appear septic or toxic Vital signs elsewhere She is awake and alert Objective Last Vital Signs Temp 37.2 C 09/15/22 07:22 Pulse 111 H 09/15/22 07:22 Resp 16 09/15/22 07:22 BP 155/90 H 09/15/22 07:22 Pulse Ox 97 09/15/22 07:22 Laboratory Results - last 24 hr 09/14/22 09/15/22 09/15/22 11:15 06:20 06:20 WBC RBC Hgb Hct MCV MCH MCHC RDW Plt Count MPV Immature Gran % Neutrophils % Lymphocytes % Monocytes % Eosinophils % Basophils % Nucleated RBC % Absolute Neutrophils Absolute Lymphocytes Absolute Monocytes Absolute Eosinophils Absolute Basophils RBC Morphology Hypochromasia Poikilocytosis Sodium 138 Potassium 2.7 L* Chloride 101 Carbon Dioxide 25.3 Anion Gap 11.7 H BUN 17 Creatinine 1.3 H Est GFR (CKD-EPI 2020) 41.57 Glucose 117 H Calcium 8.9 Magnesium 1.0 L 2.4 09/15/22 06:20 WBC 4.54 RBC 3.31 L Hgb 8.7 L Hct 27.4 L MCV 83 MCH 26.3 L MCHC 31.8 L RDW 15.4 H Plt Count 194 MPV 10.8 Immature Gran % 0.2 Neutrophils % 60.5 Lymphocytes % 24.7 Monocytes % 13.2 Eosinophils % 0.7 Basophils % 0.7 Nucleated RBC % 0.0 Absolute Neutrophils 2.75 Absolute Lymphocytes 1.12 L Absolute Monocytes 0.60 Absolute Eosinophils 0.03 Absolute Basophils 0.03 RBC Morphology See Below Hypochromasia 2+ Poikilocytosis 2+ Sodium Potassium Chloride Carbon Dioxide Anion Gap BUN Creatinine Est GFR (CKD-EPI 2020) Glucose Calcium Magnesium Time Spent with Patient Time Spent with Patient: <25 minutes Time was spent: preparing to see the patient(eg.review tests)
[2022-09-15] MEDS: cefTRIAXone 2 GM/50 ML BAG IVPB (13:12)
--- NOTE | 2022-09-15 13:29 | PT.INIE ---
Date of service: 09/15/22 Time of Service: 14:08 PT Notes Visit Reasons: Kidney Stone with UTI Physical Therapy Inpatient Initial Evaluation Date: 09/15/2022 Referring Doctor: Cintia Landry MD PT Orders: PT CONSULT: Limited ability Precautions: Fall. Standard. Activity as tolerated. Patient Profile/Admitting Diagnosis: Chasidy is an 82-year-old female with Alzheimer's type dementia who presented to the ED on 09/14/2022 due to vomiting and cough. Patient is admitted to the unit for management of kidney stones, acute urinary tract infection, hypothyroidism, atrial fibrillation, and acute kidney injury. Patient is also status post cystoscopy, right retrograde pyelogram, and right ureteral stent placement on postoperative day 1. PMHX: All Active Problems? Acute UTI (Acute) Kidney stone on right side (Acute) Acute UTI (Acute) DNR (do not resuscitate) (Acute) Poor appetite (Acute) Palliative care patient (Acute) Glaucoma (Chronic) Alzheimer's dementia (Chronic) Atrial fibrillation (Chronic) Medical History? Congestive heart failure Diabetes mellitus GI bleed HTN (hypertension) Hx of hyperlipidemia Hypothyroidism Social History/Home Situation: Patient thinks that she lives with her parents. Unaware of where she is right now. Equipment Owned/DME: Unknown Subjective: Agreeable to walking with PT. Objective: General Observation: Supine in bed. In NAD. IV access in left UE. Mental Status: Alert only to person. Able to follow single-step commands. Able to pay attention, focus, and respond appropriately. Pain: Denies Vital Signs: WNl as closely monitored via tele ROM: Right Upper Extremity: Shoulder Flexion WFL. Shoulder abduction WFL. Elbow flexion WFL. Wrist flexion WFL. Functional opening and closing of hand WFL. Left Upper Extremity: Shoulder Flexion WFL. Shoulder abduction WFL. Elbow flexion WFL. Wrist flexion WFL. Functional opening and closing of hand WFL. Right Lower Extremity: Hip flexion WFL. Hip abduction WFL. Knee flexion WFL. Ankle dorsiflexion WFL. Ankle plantarflexion WFL. Left Lower Extremity: Hip flexion WFL. Hip abduction WFL. Knee flexion WFL. Ankle dorsiflexion WFL. Ankle plantarflexion WFL. Strength: Right Upper Extremity: Shoulder flexors 4/5. Shoulder abductors 4/5. Elbow flexors 4/5. Elbow extensors 4/5. Senior Sales Operations Analyst strong. Left Upper Extremity: Shoulder flexors 4/5. Shoulder abductors 4/5. Elbow flexors 4/5. Elbow extensors 4/5. Senior Sales Operations Analyst strong. Right Lower Extremity: Hip flexors 4/5. Hip abductors 4/5. Knee flexors 4/5. Knee extensors 4/5. Ankle dorsiflexors 4/5. Ankle plantarflexors 4/5. Left Lower Extremity: Hip flexors 4/5. Hip abductors 4/5. Knee flexors 4/5. Knee extensors 4/5. Ankle dorsiflexors 4/5. Ankle plantarflexors 4/5. Bed Mobility/Transfers: Rolling independent Supine to sit independent Sit to supine independent Sit to stand independent Stand to sit independent Bed to toilet seat supervision Toilet seat to bed supervision Bed to reclining chair supervision Reclining chair to bed supervision Gait: Instructed patient with level surface ambulation of 200 feet requiring supervision. Lizzette decrased. Step height decreased. Step length decreased. Balance: Static Sitting: Normal Dynamic Sitting: Normal Static Standing: Good Dynamic Standing: Good Special Tests: Mobility Limitations Standardized Measure [facility] AM-PAC 6 clicks Basic Mobility Inpatient Short Form: Raw Score: 23 CMS Score: 11% deficit Informed Consent/Education: Patient was instructed in purpose of PT consult and plan of care. Agreeable to proceed with established PT POC to achieve personal goals. Assessment: Needs supervision assist for all ambulation due to impaired safety awareness from pre-existing dementia. Will need to see patient one more sessions to ensure that she is safely transitioned to unassisted walking as previously. No further services needed upon discharge. Patient is assessed as a 66125 moderate complexity based on the following: History: 82-year-old female with past medical history as indicated above Examination: Demonstrable impairment in strength, balance, and mobility level with underlying impairments and functional limitations as exhibited above as well as deficit score of 11% utilizing the [facility] Mobility Inpatient Short Form Presentation: Evolving Decision Makin moderate complexity Goals: Goals X1 week 1. Bed-Chair independent 2. Chair-Bed independent 3. Independent gait on level surface with no AD for at least 300 feet without report of pain nor dyspnea Plan of Care/Treatment Plan: 1-2x/day, 7 days/week x 1 week. Plan of care has been reviewed with the SAT TUTOR providing the service under Physical Therapy direction. Initiate Physical Therapy intervention for pain management as needed, strengthening, bed mobility, transfers, gait, stairs, balance training, and use of assistive device. DISCHARGE RECOMMENDATIONS: [X] Home with no services . Home when medically cleared by hospitalist. [] Home with services [specify] [] Home with outpatient PT [] [] SNF for continued rehabilitation [] [] Retirement Care [] [] SNF versus LTC based on ability to participate and progress [] TREATMENT CODE/TIME: 9716 2 x 20 minutes beginning at 1:29 PM. Thank you for the opportunity to participate in the care of this patient. Lindsay Smith PT, DPT, CLT [facility] [place], [place]
--- NOTE | 2022-09-15 17:08 | INITIAL_ITS ---
- If Service Date Differs Date of service: 09/16/22 Time of Service: 08:41 Care Management Initial Assess REASON FOR HOSPITALIZATION:: Kidney Stone with UTI PAST MEDICAL HISTORY/PAST SURGICAL HISTORY:: Medical History . Congestive heart failure. Diabetes mellitus. GI bleed. HTN (hypertension). Hx of hyperlipidemia. Hypothyroidism PREVIOUS FUNCTIONAL STATUS/SOCIAL/FAMILY SUPPORTS:: Resides with daughter, Ira who is also her primary caregiver in [facility]. Chasidy has baseline dementia, often worsened when hospitalized. Chasidy and Ira met with Dr. Reyes in July-refer to Dr. Reyes's note for further details. At baseline, Chasidy requires support with most ADLs though she does feed and toilet herself. CURRENT FUNCTIONAL STATUS:: Remains inpatient; requiring increased support r/t dementia. ADVANCE DIRECTIVES:: [facility] on file. Has patient been provided with info about the portal/API?: No Did the patient sign up for the portal?: No CODE STATUS:: DNR/DNI INSURANCE COVERAGE / FINANCIAL ISSUES:: RVE[employer] - [employer] [facility] PRIMARY CARE PHYSICIAN:: Tariq Tolentino POTENTIAL DISCHARGE NEEDS:: Follow up appointments, review community based supports. PATIENT/FAMILY EDUCATION NEEDS:: Review discharge instructions, discuss self care needs with daughter Ira. ANTICIPATED BARRIERS TO DISCHARGE:: None identified. TRANSPORTATION:: Via private vehicle with daughter. PLAN:: Chasidy does well in her home environment, anticipate she will return home to the care of her daughter. She will follow up with community providers and transport via private vehicle with her daughter.
[2022-09-15] MEDS: Atorvastatin 40 MG TAB PO (19:38)
--- NOTE | 2022-09-15 20:35 | PGE_ITS ---
Date of Service Date of service: 09/15/22 Time of Service: 20:00 Assessment and Plan Assessment and plan (1) Acute UTI: Status: Acute Assessment and plan: Present on admission, complicated by obstructing nephrolithiasis. S/p cysto/stent. Urine C&S on admission mixed. Repeat ordered. Continue empiric ceftriaxone. S/p levofloxacin in the ED. (2) Kidney stone on right side: Status: Acute Assessment and plan: S/p cysto/stent. As above (3) Diabetes mellitus: Assessment and plan: Start SSI. Consistent carb diet. (4) HTN (hypertension): Assessment and plan: Increase metoprolol dose as is also tachycardic. (5) Hypothyroidism: Assessment and plan: Continue levothryoxine. (6) Alzheimer's dementia: Status: Chronic Assessment and plan: Continue donepezil. Behaviors controlled. (7) Atrial fibrillation: Status: Chronic Assessment and plan: Increase metoprolol. Continue xarelto; however, if H/H drops further, would hold it. Qualifiers: Atrial fibrillation type: paroxysmal Qualified Code(s): I48.0 - Paroxysmal atrial fibrillation (8) DARYA (acute kidney injury): Status: Resolved Assessment and plan: Likely a combination of obstruction, infection, and prerenal etiologiest. Much better - near baseline. Continue to monitor. D/c IVF (9) DVT prophylaxis: Status: Acute Assessment and plan: Xarelto (10) Discharge planning issues: Status: Acute Assessment and plan: Home when stable - possibly as early as tomorrow.. DNR/DNI. Palliative care consulted. Subjective Subjective Interval history since last seen: Ms Boggs states she is not uncomfortable and that she feels well. She thinks she will sleep well tonight because her is here. She denies dizziness, chest pain, shortness of breath, nausea. Nursing notes that she has been restless. When she is up and about, her HR goes up into 130s. At rest, she is in the 90s (sinus). She has been having hematuria. Exam Narrative Exam Narrative: General: Pleasant elderly female who is A&Ox3, NAD HEENT: EOMI, MMM Heart: RRR, mildly tachycardic Lungs: CTAB Abdomen: soft, nontender, nondistended Extremities: no edema BLEs Objective Last Vital Signs Temp 36.6 C 09/15/22 19:24 Pulse 135 H 09/15/22 19:40 Resp 18 09/15/22 19:24 BP 127/83 09/15/22 19:24 Pulse Ox 97 09/15/22 19:24 Laboratory Results - last 24 hr 09/15/22 09/15/22 09/15/22 06:20 06:20 06:20 WBC 4.54 RBC 3.31 L Hgb 8.7 L Hct 27.4 L MCV 83 MCH 26.3 L MCHC 31.8 L RDW 15.4 H Plt Count 194 MPV 10.8 Immature Gran % 0.2 Neutrophils % 60.5 Lymphocytes % 24.7 Monocytes % 13.2 Eosinophils % 0.7 Basophils % 0.7 Nucleated RBC % 0.0 Absolute Neutrophils 2.75 Absolute Lymphocytes 1.12 L Absolute Monocytes 0.60 Absolute Eosinophils 0.03 Absolute Basophils 0.03 RBC Morphology See Below Hypochromasia 2+ Poikilocytosis 2+ Sodium 138 Potassium 2.7 L* Chloride 101 Carbon Dioxide 25.3 Anion Gap 11.7 H BUN 17 Creatinine 1.3 H Est GFR (CKD-EPI 2020) 41.57 Glucose 117 H Calcium 8.9 Magnesium 2.4 Time Spent with Patient Time Spent with Patient: 25-34 minutes Time was spent: preparing to see the patient(eg.review tests), obtaining and/or reviewing separately otained hiistory, ordering medications,tests, procedures, referring, communicating with other health assistant child care teacher, indepentently interpreting results, counseling the patient and care coordination
[2022-09-15] MEDS: Donepezil 5 MG TAB 10 MG PO (21:23)
[2022-09-16] VITALS (9 sets, daily range): BP systolic 85–150; BP diastolic 50–91; PULSE 75–132; RESP 16–20; TEMP 36.7–37.2; O2SAT 92–99
[2022-09-16] MEDS: Levothyroxine 100 MCG TAB PO (05:39)
[2022-09-16] MEDS: Normal Saline Flush 10 ML SYR IVP ×2 (05:39→11:45)
[2022-09-16] MEDS: Metoprolol 12.5 MG TAB PO ×2 (05:40→13:59)
[2022-09-16 07:01] LABS: Abs Immature Grans 0.01 10^3/uL (0.0-0.06); Absolute Basophil Count 0.03 10^3/uL (0.0-0.2); Absolute Eosinophil Count 0.09 10^3/uL (0.0-0.7); Absolute Lymphocyte Count 1.15 10^3/uL (1.2-3.4); Absolute Monocyte Count 0.46 10^3/uL (0.1-0.8); Absolute Neutrophil Count 3.16 10^3/uL (1.2-6.7); Basophils % 0.6; Eosinophils % 1.8; HCT 29.2 % (36.0-46.0); HGB 9.2 g/dL (11.2-15.7); Immature Grans % 0.2; Lymphocytes % 23.5; MCH 26.4 pg (27.0-33.0); MCHC 31.5 % (32.0-36.0); MCV 84 fL (80-95); MPV 10.9 fL (8.0-11.0); Monocytes % 9.4; Neutrophils % 64.5; Platelet Count 197 10^3/uL (130-400); RBC 3.48 10^6/uL (3.93-5.22); RDW 15.4 % (11.7-14.6); RDW-SD 46.8 fL
[2022-09-16 07:21] LABS: Iron 28 ug/dL (50-170); Total Iron Binding Capacity 294 ug/dL (250-450); Transferrin Sat 10 % (15-50)
[2022-09-16 07:45] LABS: Anion Gap 11.6 mmol/L (3-11); BUN 16 mg/dL (7-18); CO2 25.4 mmol/L (21.0-32.0); CREATININE 1.4 mg/dL (0.55-1.02); Chloride 102 mmol/L (98-107); Estimated GFR 38.03 (mL/min/1.73m2); Ferritin 94 ng/mL (8-252); Folate 4.5 ng/mL (8.6-20.0); Glucose 123 mg/dL (74-106); Magnesium 1.6 mg/dL (1.8-2.4); Potassium 3.5 mmol/L (3.5-5.1); Sodium 139 mmol/L (136-145); Vitamin B12 148 pg/mL (193-986)
[2022-09-16] MEDS: PARoxetine 20 MG TAB PO (08:09)
[2022-09-16] MEDS: Phenazopyridine 100 MG TAB PO ×3 (08:09→20:09)
[2022-09-16] MEDS: Rivaroxaban 10 MG TABLET 20 MG PO (08:09)
--- NOTE | 2022-09-16 09:01 | PT.INTREAT ---
PT Notes Visit Reasons: Kidney Stone with UTI Date: 09/16/2022 PRECAUTIONS: Fall, activity as tolerated SUBJECTIVE: Pt in recliner when approached for therapy this morning. pt agreed to participating with therapy. Afternoon session pt in recliner when approached for therapy. pt agreed to participating with therapy. OBJECTIVE:? PAIN: Patient denies pain ? BED MOBILITY/TRANSFERS? Sit-stand: Independent? Stand-sit: Independent? GAIT? Assistive Device: FWW initial 200' No AD consecutive 200'x2 AM session/ 200'x2?PM session ? Weight bearing: Full Assist: supervision ? Distance: 200'x3 AM session/ 200'x2 PM session ? Deviation: Lizzette decreased. Step height decreased. Step length decreased. Stair negotiation training 4 step 12x / 6 step 8x ?Bilateral handrail step through gait pattern AM session/ ?4 step 12x / 6 step 8x Bilateral handrail step through gait pattern?PM session? ASSESSMENT: pt tolerated activity well, pt can easily be redirected with minimal verbal cue AM session, Showing signs of sundowning in the afternoon much more difficult to redirect. PLAN: Continue with general conditioning for improved activity tolerance. TREATMENT CODE/TIME: 30 minutes; 25minutes 82399 (08:00-8:30am/1:30-1:55pm)
[2022-09-16] MEDS: cefTRIAXone 2 GM/50 ML BAG IVPB (11:44)
--- NOTE | 2022-09-16 14:59 | CMPROGNOTE_ITS ---
- If Service Date Differs Date of service: 09/16/22 Time of Service: 14:59 Care Management Progress Note S/O: Chasidy was lying in bed when CM met with her. She is pleasant and easy to engage in conversation. Chasidy is wearing several rings and explains to this insurance writer the importance of each one, twice. Palliative care consult is planned for today. Chasidy has no current [facility] services. Chasidy lives with her daughter/primary caregiver Ira. CM will follow. A: 82 year old female admitted to [facility] on 09/14/21 for Kidney Stone with UTI. P: Chasidy does well in her home environment, anticipate she will return home to the care of her daughter. She will follow up with community providers and [employer] via private vehicle with her daughter.
--- NOTE | 2022-09-16 15:34 | CHAPLAIN ---
Chasidy was resting in bed when I visited. She told me she was from somewhere in [place], and said she came to our area for a few days at time because her kids were like to do stuff in the snow. According to Care Management notes, Chasidy lives locally with her daughter and has dementia. Chasidy also told me that her was suppose to visit her here, but sometimes he show up when he's suppose to. (I don't know if her lives here, he's not mentioned in any of the notes about Chasidy.) She was very pleasant and talked about the weather here and in [place]. She said has been bored here and that she might get up and walk around to see what's going on around here.
--- NOTE | 2022-09-16 15:38 | W.PALLCONSUL ---
Date of service: 09/16/22 Time of Service: 15:00 History of Present Illness Narrative: Ms. Umaña is an 82 y/o F currently inpt at [facility] 2/2 UTI w/kidney stone; PMHx sig for a fib, HLD, HTN, T2DM, Alzheimer's Disease Chasidy is comfortable in bed at time of visit, w/no complaints. She does not know where she is or what month it is. She is wondering where her is. She has two children, w/several grandchildren. She reports she lives in [place], gets lost and confused occasionally however this does not distress her and she isn't afraid to ask for help. She denies pain; her appetite has been good and she is sleeping well. per staff: she forgets things easily, asks to use the toilet frequently and will forget what she asked once they get her up; ADLs: ind w/eating, mostly continent; assistance w/dressing, ambulating independent but needs assistance; dependent bathing; her simone has been good; she is getting bored; PT eval appropriate for discharge home w/o services, needs ambulatory assistance Hospital course: presented to [facility] ED on 09/13/22 w/acute UTI, dc'd home, re-presented on 09/14/22 w/worsening sxs, work up found kidney stone, IV abx recommended, transitioned inpatient for ongoing monitoring and therapy; switched from IV Levaquin to IV ceftriaxone; urology consulted and following, urethral stent placed 09/14, outpatient f/u recommended and scheduled to consider ureteroscopy vs holminium laser lithotripsy; discharge home w/no services, will be considered for discharge pending cultures; Chasidy lives in [facility] w/daughter Ira, she is mostly dependent ADLs at baseline, reflective as above; she is f/b Palliative already, f/u in Oct w/Dr. Reyes; COLST updated at last visit: DNR/I, avoid invasive interventions, no FT/IVF, trial antibiotics Assessment and Plan Assessment and plan (1) Acute UTI: Status: Acute Assessment and plan: culture pending continue ceftriaxone received levofloxacin in ED (2) Kidney stone on right side: Status: Acute Assessment and plan: s/p stent f/b urology outpatient f/u scheduled (3) Alzheimer's dementia: Status: Chronic Assessment and plan: FAST scale 6c not hospice eligible at this time no HH services at this time, consider in future visits Ira unavailable at time of visit (4) Decreased activities of daily living (ADL): Status: Acute Assessment and plan: consier HH or other community resources PRN (5) DNR (do not resuscitate): Status: Acute Assessment and plan: updated at previous PC visit (6) Palliative care patient: Status: Acute Assessment and plan: f/b Dr. Reyes, f/u scheduled oct Review of Systems Unobtainable due to mental condition (as per HPI) [facility] All Active Problems (Updated 09/16/22 @ 15:52 by Mojgan Haider NP) Decreased activities of daily living (ADL) (Acute) Discharge planning issues (Acute) DVT prophylaxis (Acute) Acute UTI (Acute) Kidney stone on right side (Acute) Acute UTI (Acute) DNR (do not resuscitate) (Acute) Poor appetite (Acute) Palliative care patient (Acute) Glaucoma (Chronic) Alzheimer's dementia (Chronic) Atrial fibrillation (Chronic) Medical History Congestive heart failure Diabetes mellitus GI bleed HTN (hypertension) Hx of hyperlipidemia Hypothyroidism Family History Father Heart disease Hypertension Social History Smoking/Tobacco Use Status: Former Tobacco Use Smoking risk assessment performed?: Yes Alcohol Intake: never Drug use: Never Substance use type: does not use Adopted: No Caregiver/Support person: Yes Foster care: No Household members: family Housing: house Number of Children: 2 number of grandchildren: 4 Communication Needs: None Education Level: high school Do you need help understanding health information?: Always current occupation: Retired Pets and animals: Yes (1) Pets and animals: cat(s) Sexually active: No Do you think of yourself as: straight/heterosexual Current gender identity: female What is your relationship status?: How often do you talk on the phone with friends or family?: three or more times per week How often do you get together with friends or relatives?: three or more times per week Do you belong to any clubs or organized social groups?: no Panel score (0-1 are the most socially isolated patients): 1 Debo/Quaker: Pentecostalism Special debo needs: No Seatbelt use: always Drive intox or ride w/intox pile driver engineer: No Do you feel safe at home: Yes Do you feel safe in your relationship?: Yes Exam Narrative Exam Narrative: at first visit Chasidy was sitting on side of bed, legs over bedrail, asking to use toilet on return Chasidy is lying in bed, watching TV Const General: cooperative, comfortable and no acute distress Nutritional Appearance: average body habitus Orientation: alert, awake and confused [facility] Head: normal to inspection, normocephalic, atraumatic and no acral cyanosis Ears: hearing grossly normal bilaterally Mouth: moist mucous membranes Chest Chest: normal inspection of the chest Resp Effort & Inspection: normal respiratory effort, able to speak in complete sentences, no audible wheezes, no cough and not labored Skin General skin exam: no rashes or lesions noted Neuro General: patient alert, patient awake, moves all extremities and CN's II-XI intact bilaterally Cognition: abnormal cognition Speech: speech normal Psych Mental Status: mental status grossly abnormal Speech and Movement: speech clear Mood: congruent mood Affect: normal affect Attitude: cooperative Thought Process: illogical, impoverished and loose association Thought Content: normal Insight: poor Judgment: poor Results Last Vital Signs Temp 98.4 F 09/16/22 15:35 Pulse 110 H 09/16/22 15:35 Resp 18 09/16/22 15:35 BP 125/82 09/16/22 15:35 Pulse Ox 98 09/16/22 15:35 Labs Result diagrams: 09/16/22 06:29 09/16/22 06:29 Labs: Laboratory Results - last 24 hr 09/16/22 09/16/22 09/16/22 06:29 06:29 06:29 WBC 4.90 RBC 3.48 L Hgb 9.2 L Hct 29.2 L MCV 84 MCH 26.4 L MCHC 31.5 L RDW 15.4 H Plt Count 197 MPV 10.9 Immature Gran % 0.2 Neutrophils % 64.5 Lymphocytes % 23.5 Monocytes % 9.4 Eosinophils % 1.8 Basophils % 0.6 Nucleated RBC % 0.0 Absolute Neutrophils 3.16 Absolute Lymphocytes 1.15 L Absolute Monocytes 0.46 Absolute Eosinophils 0.09 Absolute Basophils 0.03 Sodium 139 Potassium 3.5 Chloride 102 Carbon Dioxide 25.4 Anion Gap 11.6 H BUN 16 Creatinine 1.4 H Est GFR (CKD-EPI 2020) 38.03 Glucose 123 H Calcium 9.0 Magnesium 1.6 L Iron 28 L TIBC 294 Transferrin % Sat 10 L Ferritin 94 Vitamin B12 148 L Folate 4.5 L
[2022-09-16] MEDS: Magnesium Oxide 400 MG TAB PO (16:06)
[2022-09-16] MEDS: MAGNESIUM SULFATE 2 GM/50 ML BAG IVPB (16:07)
[2022-09-16] MEDS: Cyanocobalamin 1000 MCG/ML VIAL IM/SC (16:07)
--- NOTE | 2022-09-16 17:30 | PGE_ITS ---
Date of Service Date of service: 09/16/22 Time of Service: 17:30 Assessment and Plan Assessment and plan (1) Acute UTI: Status: Acute Assessment and plan: Present on admission, complicated by obstructing nephrolithiasis. S/p cysto/stent. Urine C&S on admission mixed. Repeat pending. Continue empiric ceftriaxone. S/p levofloxacin in the ED. (2) Kidney stone on right side: Status: Acute Assessment and plan: S/p cysto/stent. As above (3) Diabetes mellitus: Assessment and plan: Continue SSI. Consistent carb diet. (4) HTN (hypertension): Assessment and plan: Increase metoprolol dose yet again. (5) Hypothyroidism: Assessment and plan: Continue levothryoxine. (6) Alzheimer's dementia: Status: Chronic Assessment and plan: Continue donepezil. Behaviors controlled. (7) Atrial fibrillation: Status: Chronic Assessment and plan: And flutter. Increase metoprolol. Continue xarelto; H/H is tolerating this. Qualifiers: Atrial fibrillation type: paroxysmal Qualified Code(s): I48.0 - Paroxysmal atrial fibrillation (8) DRAYA (acute kidney injury): Status: Resolved Assessment and plan: Likely a combination of obstruction, infection, and prerenal etiologiest. Much better. Doing well off of IVF. (9) DVT prophylaxis: Status: Acute Assessment and plan: Xarelto (10) Discharge planning issues: Status: Acute Assessment and plan: Home when stable - hopefully tomorrow. DNR/DNI. Palliative care consulted. Subjective Subjective Interval history since last seen: Ms Boggs states she is feeling well. She denies dizziness, chest pain, shortness of breath, nausea. On telemetry, she has been spending a lot of time in rapid Aflutter with HR in 130s. Exam Narrative Exam Narrative: General: Pleasant elderly female who is A&Ox2, NAD HEENT: EOMI, MMM Heart: RRR, mildly tachycardic Lungs: CTAB Abdomen: soft, nontender, nondistended Extremities: no edema BLEs Objective Last Vital Signs Temp 36.9 C 09/16/22 15:35 Pulse 132 H 09/16/22 15:52 Resp 18 09/16/22 15:35 BP 125/82 09/16/22 15:35 Pulse Ox 98 09/16/22 15:35 Laboratory Results - last 24 hr 09/16/22 09/16/22 09/16/22 06:29 06:29 06:29 WBC 4.90 RBC 3.48 L Hgb 9.2 L Hct 29.2 L MCV 84 MCH 26.4 L MCHC 31.5 L RDW 15.4 H Plt Count 197 MPV 10.9 Immature Gran % 0.2 Neutrophils % 64.5 Lymphocytes % 23.5 Monocytes % 9.4 Eosinophils % 1.8 Basophils % 0.6 Nucleated RBC % 0.0 Absolute Neutrophils 3.16 Absolute Lymphocytes 1.15 L Absolute Monocytes 0.46 Absolute Eosinophils 0.09 Absolute Basophils 0.03 Sodium 139 Potassium 3.5 Chloride 102 Carbon Dioxide 25.4 Anion Gap 11.6 H BUN 16 Creatinine 1.4 H Est GFR (CKD-EPI 2020) 38.03 Glucose 123 H Calcium 9.0 Magnesium 1.6 L Iron 28 L TIBC 294 Transferrin % Sat 10 L Ferritin 94 Vitamin B12 148 L Folate 4.5 L Time Spent with Patient Time Spent with Patient: 25-34 minutes Time was spent: preparing to see the patient(eg.review tests), obtaining and/or reviewing separately otained hiistory, ordering medications,tests, procedures, referring, communicating with other health occasional caregiver, indepentently interpreting results, counseling the patient and care coordination
[2022-09-16] MEDS: Ferrous Sulfate 325 MG TAB PO (20:08)
[2022-09-16] MEDS: Donepezil 5 MG TAB 10 MG PO (20:08)
[2022-09-16] MEDS: Atorvastatin 40 MG TAB PO (20:08)
[2022-09-16] MEDS: Metoprolol 25 MG TAB PO (22:30)
[2022-09-17] VITALS (9 sets, daily range): BP systolic 106–140; BP diastolic 61–87; PULSE 70–101; RESP 16–18; TEMP 36.4–37.1; O2SAT 96–99
[2022-09-17] MEDS: Metoprolol 25 MG TAB PO ×3 (06:00→17:54)
[2022-09-17] MEDS: Levothyroxine 100 MCG TAB PO (06:00)
[2022-09-17 09:43] LABS: Glucose 129 mg/dL (74-106)
[2022-09-17 09:44] LABS: Anion Gap 10.6 mmol/L (3-11); BUN 14 mg/dL (7-18); CO2 25.4 mmol/L (21.0-32.0); CREATININE 1.3 mg/dL (0.55-1.02); Chloride 102 mmol/L (98-107); Estimated GFR 41.57 (mL/min/1.73m2); Magnesium 1.9 mg/dL (1.8-2.4); Potassium 3.5 mmol/L (3.5-5.1); Sodium 138 mmol/L (136-145)
[2022-09-17] MEDS: Folic Acid 1 MG TAB PO (09:49)
[2022-09-17] MEDS: PARoxetine 20 MG TAB PO (09:49)
[2022-09-17] MEDS: Ferrous Sulfate 325 MG TAB PO ×2 (09:49→22:01)
[2022-09-17] MEDS: Rivaroxaban 10 MG TABLET 20 MG PO (09:49)
[2022-09-17] MEDS: Phenazopyridine 100 MG TAB PO ×3 (09:49→22:01)
--- NOTE | 2022-09-17 10:30 | RT.EKG_ITS ---
APPROVED REPORT Exam: Resting ECG Reason for Exam: ST DEPRESSION? Patient Location: I HR:98 bpm ECG Measurements Heart Rate 98 AXIS OH [id number] P [id number] QRSd 110 QRS -46 QT 382 T 248 QTc 488 Conclusion Atrial flutter...A-rate 258 Abnormal R-wave progression, early transition...QRS area>0 in V2 LVH with IVCD, LAD and secondary repol abnrm...multi-criteria, wQRSd, abnr ST-T Borderline prolonged QT interval...QTc >485mS
[2022-09-17 10:38] LABS: Absolute Lymphocyte Count 1.06 10^3/uL (1.2-3.4); Absolute Monocyte Count 0.39 10^3/uL (0.1-0.8); Absolute Neutrophil Count 2.81 10^3/uL (1.2-6.7); Eosinophils % 2.3; HCT 29.1 % (36.0-46.0); HGB 9.4 g/dL (11.2-15.7); MCH 26.5 pg (27.0-33.0); MCHC 32.3 % (32.0-36.0); MCV 82 fL (80-95); MPV 10.8 fL (8.0-11.0); Monocytes % 8.8; Neutrophils % 63.5; Platelet Count 213 10^3/uL (130-400); RBC 3.55 10^6/uL (3.93-5.22); RDW 15.1 % (11.7-14.6); WBC 4.42 10^3/uL (4.4-10.8)
[2022-09-17 10:39] LABS: Abs Immature Grans 0.02 10^3/uL (0.0-0.06); Absolute Basophil Count 0.04 10^3/uL (0.0-0.2); Basophils % 0.9; Immature Grans % 0.5
--- NOTE | 2022-09-17 10:58 | W.PM.PROGNOT ---
Date of Service Date of service: 09/17/22 Time of Service: 10:30 Assessment and Plan Assessment and plan (1) Acute UTI: Status: Acute Assessment and plan: Present on admission, complicated by obstructing nephrolithiasis. S/p cysto/stent.CT abdomen and pelvis 05/28/2022 IMPRESSION: Moderate right hydronephrosis secondary to an 8 millimeter stone in the distal ureter.? Other non-obstructing stones noted in both kidneys. Urine shows GNR but specificity is still not available this AM, She is receiving ceftriaxone and if she was to grow S. Aeruginosa we would transition to Cefepime as she has no risk factors for MDROs. We will wait for the urine culture and continue ceftriaxone (2) Kidney stone on right side: Status: Acute Assessment and plan: S/p cysto/stent. As above (3) Alzheimer's dementia: Status: Chronic Assessment and plan: Patient remains symptomatic of her condition but is pleasant and calm. We will contonue her home regimen Continue donepezil. Behaviors controlled. (4) Atrial fibrillation: Status: Chronic Assessment and plan: Telemetry is on and patient has A-flutter bursts up to 130 bpm, she was at 92 at her lowest HR. We should continue her metoprolol at the same increased dose from yesterday as her SBP went from 145 to 118 We will continue xarelto for anticoagualtion sinnce she is at increased risk of ischemic events Qualifiers: Atrial fibrillation type: paroxysmal Qualified Code(s): I48.0 - Paroxysmal atrial fibrillation (5) DARYA (acute kidney injury): Status: Resolved Assessment and plan: DARYA can be due to pre-renal, intra-renal or post-renal obstruction. The patient has an obstruction that could be leading to DARYA Therapy included IVF on admission, creatinine went 1.4 to 1.3 while off the IVF (6) DVT prophylaxis: Status: Deleted Assessment and plan: We will continue Xarelto (7) Discharge planning issues: Status: Deleted Assessment and plan: Patient will go home when stable and complete the course of therapy on oral antibiotic for 5 to 7 days DNR/DNI. Palliative care consulted. Assessment and Plan Assessment and plan (1) Acute UTI: ?Status:?Acute ? ? ? Assessment and plan: culture pending continue ceftriaxone received levofloxacin in ED (2) Kidney stone on right side: ?Status:?Acute ? ? ? Assessment and plan: s/p stent f/b urology outpatient f/u scheduled (3) Alzheimer's dementia: ?Status:?Chronic ? ? ? Assessment and plan: FAST scale 6c not hospice eligible at this time no HH services at this time, consider in future visits Ira unavailable at time of visit (4) Decreased activities of daily living (ADL): ?Status:?Acute ? ? ? Assessment and plan: consier HH or other community resources PRN (5) DNR (do not resuscitate): ?Status:?Acute ? ? ? Assessment and plan: updated at previous PC visit (6) Palliative care patient: ?Status:?Acute ? ? ? Assessment and plan: f/b Dr. Reyes, f/u scheduled oct Subjective Subjective Patient reports: no new complaints, feels better, tolerating a regular diet, voiding w/o difficulty, flatus and bowel movement; denies diarrhea, nausea, vomiting, shortness of breath or fever Exam Narrative Exam Narrative: Patient alert and confused in time,space and situation. She displays short term memory recall. She is sitting in the chair, speak in full sentences and in no apparent distress. No focal neuro-deficit noticed. Telemetry HR 83 to 128 a-flutter, S1,S2 heart sounds, no murmur, pulse are positive and palpable to all 4 extremities. Lung ocasio are clear bilaterally Abdomen is [id number] , non-distended and bowel sounds are present. She has equal strenght 5/5 to upper lower extreemities on push pull motions No skin lesions or rash noticed Objective Last Vital Signs Temp 97.7 F 09/17/22 07:50 Pulse 85 09/17/22 07:50 Resp 16 09/17/22 07:50 BP 140/80 09/17/22 07:50 Pulse Ox 97 09/17/22 07:50 Laboratory Results - last 24 hr 09/17/22 09/17/22 06:35 06:35 WBC 4.42 RBC 3.55 L Hgb 9.4 L Hct 29.1 L MCV 82 MCH 26.5 L MCHC 32.3 RDW 15.1 H Plt Count 213 MPV 10.8 Immature Gran % 0.5 Neutrophils % 63.5 Lymphocytes % 24.0 Monocytes % 8.8 Eosinophils % 2.3 Basophils % 0.9 Nucleated RBC % 0.0 Absolute Neutrophils 2.81 Absolute Lymphocytes 1.06 L Absolute Monocytes 0.39 Absolute Eosinophils 0.10 Absolute Basophils 0.04 Sodium 138 Potassium 3.5 Chloride 102 Carbon Dioxide 25.4 Anion Gap 10.6 BUN 14 Creatinine 1.3 H Est GFR (CKD-EPI 2020) 41.57 Glucose 129 H Calcium 9.0 Magnesium 1.9 Time Spent with Patient Time Spent with Patient: >50 minutes Time was spent: preparing to see the patient(eg.review tests)
--- NOTE | 2022-09-17 11:16 | PT.INTREAT ---
PT Notes Visit Reasons: Kidney Stone with UTI Date: 09/17/2022 PRECAUTIONS: Fall, activity as tolerated SUBJECTIVE: Pt in recliner when approached for therapy this morning. pt pleasant and alert, able to follow instructions. pt agreed to participating with therapy. OBJECTIVE:? PAIN: Patient denies pain ? BED MOBILITY/TRANSFERS? Sit-stand: Independent? Stand-sit: Independent? GAIT? Assistive Device: no AD 200'x4 AM session/ ? Weight bearing: Full Assist: supervision ? Distance: 200'x3 AM session/? Deviation: Lizzette decreased. Step height decreased. Step length decreased. Stair negotiation training 4 step 12x / 6 step 8x?unilateral/Bilateral handrail step through gait pattern AM session/ ?4 step 12x / ? ASSESSMENT: pt tolerated activity well, pt with short memory issues but able to follow single worded instructions, easy to redirect requiring min verbal and visual cue for continued engagement with task. PLAN: Continue with general conditioning for improved activity tolerance. TREATMENT CODE/TIME: 30 minutes 59115 (10:30-11:00am/)
[2022-09-17] MEDS: cefTRIAXone 2 GM/50 ML BAG IVPB (12:49)
--- NOTE | 2022-09-17 14:04 | CMPROGNOTE_ITS ---
- If Service Date Differs Date of service: 09/17/22 Time of Service: 14:04 Care Management Progress Note S/O: Chasidy was lying in bed when CM met with her. She is pleasant and easy to engage in conversation. Chasidy has no current [facility] services. She is working with PT during this admission. Chasidy lives with her daughter/primary caregiver Ira. Chasidy is followed by Palliative care, a consult was done yesterday and no changes are made. CM will follow. A: 82 year old female admitted to [facility] on 09/14/21 for Kidney Stone with UTI. P: Chasidy does well in her home environment, anticipate she will return home to the care of her daughter. She will follow up with community providers, palliati ve care and transport via private vehicle with her daughter. No [facility] services are indicated at this time. CM will follow continue to support Chasidy and her discharge needs.
[2022-09-17] MEDS: Normal Saline Flush 10 ML SYR IVP (14:50)
--- NOTE | 2022-09-17 16:14 | PT.INNT ---
PT Notes Visit Reasons: Kidney Stone with UTI Pt with sundowning in the afternoon. left in recliner with alarms and was redirected to work on coloring to prevent pt from standing up and triggering the seat alarm.
[2022-09-17 17:09] LABS: Lab Add On Test DONE
--- NOTE | 2022-09-17 17:30 | W.PM.PROGNOT ---
Date of Service Date of service: 09/17/22 Time of Service: 17:09 Assessment and Plan Assessment and plan (1) Acute UTI: Status: Acute Assessment and plan: Present on admission, complicated by obstructing nephrolithiasis. S/p cysto/stent. Urine C&S on admission mixed. Repeat w/ NGTD. Continue empiric ceftriaxone. On discharge would send home with cefpodoxime. S/p levofloxacin in the ED. (2) Atrial fibrillation: Status: Chronic Assessment and plan: And flutter. Increase metoprolol yet again. EKG changes seen. Await echo. May require outpatient ischemic workup. Continue xarelto. Qualifiers: Atrial fibrillation type: paroxysmal Qualified Code(s): I48.0 - Paroxysmal atrial fibrillation (3) Kidney stone on right side: Status: Acute Assessment and plan: S/p cysto/stent. As above (4) Diabetes mellitus: Assessment and plan: Continue SSI. Consistent carb diet. (5) HTN (hypertension): Assessment and plan: Increase metoprolol dose yet again. (6) Hypothyroidism: Assessment and plan: Continue levothryoxine. (7) Alzheimer's dementia: Status: Chronic Assessment and plan: Continue donepezil. Behaviors controlled. (8) DARYA (acute kidney injury): Status: Resolved Assessment and plan: Likely a combination of obstruction, infection, and prerenal etiologiest. Much better. Doing well off of IVF. (9) DVT prophylaxis: Status: Acute Assessment and plan: Xarelto (10) Discharge planning issues: Status: Acute Assessment and plan: Discharge home tomorrow. DNR/DNI. Palliative care consulted. Subjective Subjective Interval history since last seen: Ms Boggs feels well, she says. She had just pulled out her IV. Denies dizziness, chest pain, shortness of breath, nausea. Continues to have episodes of rapid Aflutter to 190. Mostly 80s-100s. Exam Narrative Exam Narrative: General: Pleasant elderly female who is A&Ox2, NAD HEENT: EOMI, MMM Heart: RRR Lungs: CTAB Abdomen: soft, nontender, nondistended Extremities: no edema BLEs, former IV site L AC is dressed. Objective Last Vital Signs Temp 36.9 C 09/17/22 15:17 Pulse 92 H 09/17/22 15:17 Resp 16 09/17/22 15:17 BP 118/73 09/17/22 15:17 Pulse Ox 96 09/17/22 15:17 Laboratory Results - last 24 hr 09/17/22 09/17/22 09/17/22 06:35 06:35 17:08 WBC 4.42 RBC 3.55 L Hgb 9.4 L Hct 29.1 L MCV 82 MCH 26.5 L MCHC 32.3 RDW 15.1 H Plt Count 213 MPV 10.8 Immature Gran % 0.5 Neutrophils % 63.5 Lymphocytes % 24.0 Monocytes % 8.8 Eosinophils % 2.3 Basophils % 0.9 Nucleated RBC % 0.0 Absolute Neutrophils 2.81 Absolute Lymphocytes 1.06 L Absolute Monocytes 0.39 Absolute Eosinophils 0.10 Absolute Basophils 0.04 Sodium 138 Potassium 3.5 Chloride 102 Carbon Dioxide 25.4 Anion Gap 10.6 BUN 14 Creatinine 1.3 H Est GFR (CKD-EPI 2020) 41.57 Glucose 129 H Calcium 9.0 Magnesium 1.9 Add-On Test Request DONE Time Spent with Patient Time Spent with Patient: 25-34 minutes Time was spent: preparing to see the patient(eg.review tests), obtaining and/or reviewing separately otained hiistory, ordering medications,tests, procedures, referring, communicating with other health healthcare science specialist, indepentently interpreting results, counseling the patient and care coordination
[2022-09-17 17:48] LABS: Troponin I < 50 ng/L (<or=60)
[2022-09-17] MEDS: Donepezil 5 MG TAB 10 MG PO (22:01)
[2022-09-17] MEDS: Atorvastatin 40 MG TAB PO (22:01)
[2022-09-18] MEDS: Metoprolol 25 MG TAB PO ×3 (00:18→11:32)
[2022-09-18 03:46] VITALS: BP 153/84; PULSE 81; RESP 16; TEMP 36.2; O2SAT 97
[2022-09-18] MEDS: Levothyroxine 100 MCG TAB PO (06:31)
[2022-09-18 07:00] VITALS: PULSE 83
[2022-09-18 07:50] VITALS: BP 149/95; PULSE 93; RESP 17; TEMP 36.8; O2SAT 97
[2022-09-18] MEDS: Folic Acid 1 MG TAB PO (08:43)
[2022-09-18] MEDS: Phenazopyridine 100 MG TAB PO (08:44)
[2022-09-18] MEDS: Rivaroxaban 10 MG TABLET 20 MG PO (08:44)
[2022-09-18] MEDS: Ferrous Sulfate 325 MG TAB PO (08:44)
[2022-09-18] MEDS: PARoxetine 20 MG TAB PO (08:45)
--- NOTE | 2022-09-18 09:05 | PDOC.CMPRO ---
- If Service Date Differs Date of service: 09/18/22 Time of Service: 09:05 Care Management Progress Note S/O: Chasidy is sitting in her chair, watching TV and coloring. She is pleasant and easy to engage in conversation. Chasidy has no concerns or needs at this time. Chasidy had an ECHO this morning, anticipate she will discharge home when medically ready per provider. A: 82 year old female admitted to [facility] on 09/14/21 for Kidney Stone with UTI. P: Chasidy does well in her home environment, anticipate she will return home to the care of her daughter. She will follow up with community providers, palliative care and transport via private vehicle with her daughter. No [facility] services are indicated at this time. CM will follow continue to support Chasidy and her discharge needs.
--- NOTE | 2022-09-18 11:05 | PT.INTREAT ---
PT Notes Visit Reasons: Kidney Stone with UTI Date: 09/18/2022 PRECAUTIONS: Fall, activity as tolerated SUBJECTIVE: Pt in recliner when approached for therapy this morning. Pt pleasant with short memory issues but able to follow instructions. OBJECTIVE:? PAIN: Patient denies pain ? BED MOBILITY/TRANSFERS? Sit-stand: Independent? Stand-sit: Independent? GAIT? Assistive Device: No AD? Weight bearing: Full Assist: supervision ? Distance: 300'x4 AM session/? Deviation: Lizzette decreased. Step height decreased. Step length decreased. Stair negotiation training 4 step 24x / 6 step 16x?unilateral handrail step through gait pattern AM session/ ? ASSESSMENT: pt tolerated activity well, pt with short memory issues but able to follow verbal cue, easy to redirect requiring min verbal and visual cue for continued engagement with task. PLAN: Continue with general conditioning for improved activity tolerance. TREATMENT CODE/TIME: 30 minutes [id number] (10:30-11:00am/)
[2022-09-18 11:13] VITALS: BP 136/83; PULSE 91; RESP 16; TEMP 36.3; O2SAT 97
--- NOTE | 2022-09-18 12:07 | DSE_ITS ---
Date of service: 09/18/22 Time of Service: 12:07 DS: Diagnosis Discharge Diagnosis (1) Acute UTI: Status: Acute Asessment and Plan: mixed culture (2) Kidney stone on right side: Status: Acute (3) Hydronephrosis, right: Status: Acute (4) Atrial fibrillation: Status: Chronic Asessment and Plan: Rapid Afib/flutter, now rate controlled. (5) DARYA (acute kidney injury): Status: Resolved (6) Alzheimer's dementia: Status: Chronic Discharge Plan Disposition Patient Disposition: Home Condition: Good Discharge Details Reason For Visit: Kidney Stone with UTI Admit Date/Time: 09/14/22 05:44 Admit Provider: Mo Vela Attending Provider: Mo Vela Primary Care Provider: Tarqi Tolentino [place] Hospital Course Hospital Course: Ms Boggs is an 82 year old female with PMHx of Afib/flutter, on anticoagulation with xarelto, NIDDM2, hypertension, hypothyroidism, as well as h/o Alzheimer's dementia, who was admitted to [facility] hospitalist service on 09/14/21 for a UTI complicated by an obstructing kidney stone (8 mm) in the right distal ureter resulting in a R hydronephrosis. The patient received levofloxacin in the ED and underwent cystoscopy and ureteral stent placement by Dr Ingram on 09/14/22. She was then treated with IV ceftriaxone. Her initial urine culture was mixed; however, a repeat urine culture 2 days later showed NGTD, indicating that ceftriaxone likely was an effective antibiotic. She is being discharged home with cefpodoxime (written for a 2 week course) until she can follow up with Dr Ingram in the office for further management of her obstructing kidney stone. Meanwhile, the patient was also noted to have rapid atrial flutter. The doses of her metoprolol were titrated up until her HR was much better controlled. She is going home on toprol XL 100 mg PO daily. She is maintained on xarelto. Because we increased the dose of her metoprolol, we lowered the dose of her lisinopril. She did have changed on her EKG from prior, but never had chest pain and had a negative troponin during this admission, indicating that, if she indeed had an ischemic event, it was not acute. Her echocardiogram was a limited study which did not show either LV or RV. It did show that there was moderate mitral regurgitation and aortic leaflet excursion was moderately reduced. PCP can discuss further ischemic workup as outpatient. At this point, we felt that the best treatment modality to minimize risk of ischemia in the future was up- titrating beta carlo. Ms Boggs is stable for discharge home today. Care for patient as well as completion of her discharge summary on the day of discharge took 45 minutes. Home Meds and New Rx's Prescriptions: New ferrous sulfate 325 mg (65 mg iron) Tablet 325 mg PO BID Qty: 60 0RF folic acid 1 mg Tablet 1 mg PO DAILY Qty: 30 0RF Xarelto 15 mg Tablet 15 mg PO DAILY@1700 Qty: 30 0RF lisinopril 2.5 mg tablet 2.5 mg PO DAILY Qty: 30 0RF cefpodoxime 200 mg tablet 200 mg PO BID Qty: 28 0RF Rx Instructions: must administer with a meal/food metoprolol succinate [Toprol XL] 100 mg tablet extended release 24 hr 100 mg PO DAILY Qty: 30 0RF Continued nystatin 100,000 unit/gram powder 1 applic topical BID PRN (Reason: skin irritation) Qty: 60 0RF donepezil 10 mg tablet 10 mg PO QHS Qty: 90 3RF levothyroxine 100 mcg tablet 100 mcg PO DAILY Qty: 90 3RF paroxetine HCl 20 mg tablet 20 mg PO DAILY Qty: 30 0RF metformin 1,000 mg tablet 1,000 mg PO BID Qty: 180 3RF atorvastatin 40 mg tablet 40 mg PO DAILY AM Label Comments: TAKE 1 TABLET BY MOUTH EVERY EVENING Discontinued metoprolol tartrate 25 mg tablet 12.5 mg PO BID Qty: 90 3RF Xarelto 20 mg tablet 20 mg PO DAILY Qty: 90 3RF Rx Instructions: Pause while on Paxlovid levofloxacin 750 mg tablet 750 mg PO DAILY Qty: 5 0RF lisinopril 20 mg tablet 20 mg PO 4-8XD Label Comments: TAKE 1 TABLET BY MOUTH DAILY Discharge Instructions Instructions: Cefpodoxime Proxetil (By mouth), Kidney Stones (DC), Urinary Tract Infection in Women (DC) Additional Instructions: Finish your antibiotics as prescribed. Return to the hospital with any fever, bleeding, chest pain, or shortness of breath. Follow up with your PCP in 1-[address] Ingram (urology). Stand Alone Forms: Nursing Discharge Form Referrals: [facility] [Provider Group] (office will call you to set up appointment.) Corey Ingram MD [ [facility] STAFF PHYSICIAN] - (Office will call you with appointment.) Tariq Tolentino DO [Primary Care Provider] - 09/28/22 2:00 pm Activity:: Activity as Tolerated Equipment/Supplies:: No Equipment Needed Diet:: As Tolerated Discharge Orders Discharge Orders: Discharge Order (Routine); Ordered 09/18/22 Ordered By: Cintia Landry Discharge Data Discharge Date/Time-TO BE ENTERED AT DEPARTURE: 09/18/22 14:49 DS: Summary Time Spent with Patient providing and/or coordinating discharge services: Greater than 30 minutes Status at Discharge Functional status at discharge: independent ambulation Overall status at discharge: patient is back to baseline Mental Status: mental status grossly normal Speech and Movement: speech and movement normal Mood: congruent mood Affect: normal affect Exam Narrative Exam Narrative: General: Pleasant elderly female who is A&Ox2, NAD, eating lunch HEENT: EOMI, MMM Heart: RRR Lungs: CTAB Abdomen: soft, nontender, nondistended Extremities: no edema BLEs, Psych Mental Status: mental status grossly normal Speech and Movement: speech and movement normal Mood: congruent mood Affect: normal affect DS: Data Vitals/I&O Vitals and I&O: Vital Signs Temperature 36.3 C L 09/18/22 11:13 Temperature Source Tympanic 09/18/22 11:13 Pulse 91 H 09/18/22 11:13 Pulse Rhythm Irregular 09/18/22 08:15 Respiratory Rate 16 09/18/22 11:13 Respiratory Effort Non-Labored 09/18/22 08:15 Respiratory Depth Normal 09/18/22 08:15 Respiratory Pattern Normal 09/18/22 08:15 Blood Pressure 136/83 09/18/22 11:13 Blood Pressure Mean 105 09/14/22 06:46 Blood Pressure Position Sitting 09/14/22 02:27 Pulse Oximetry 97 09/18/22 11:13 Respiratory End-tidal CO2 30 09/14/22 13:32 Oxygen Delivery Method Room Air 09/18/22 11:13 Oxygen Flow Rate 0 09/18/22 11:13 Pain Level 0 09/18/22 11:13 Comment 09/17/22 22:55 Intake & Output 09/17/22 09/18/22 09/18/22 23:59 11:59 23:59 Intake Total 170 / 420 Output Total 150 / 350 300 / 300 Balance -300 / -300 Intake: IV 50 / 60 Oral 120 / 360 Output: Urine 150 / 350 300 / 300 Other: Urine Color Pondera Pondera Urine Appearance Clear Clear Cloudy Urine Odor None Comment unmeasured Stool Size Small Moderate Stool Characteristics Liquid Soft Liquid Brown Voiding Methods Toilet Toilet Data Completed and Pending Completed studies during hospitalization [Text1]: CT abdomen/pelvis w/o contrast 09/14/2022: Moderate right hydronephrosis secondary to an 8 millimeter stone in the distal ureter.? Other nonobstructing stones noted in both kidneys.. No acute abnormality in the chest. Echo: Technically difficult study with limited diagnostic value. Neither LV nor RV is adequately visualized. The oartic valve is not well visualized. The aortic leaflet excursion is moderately reduced. There is moderate mitral regurgitation. Labs on day of discharge: Labs from last 24 hours 09/17/22 09/17/22 09/17/22 17:08 06:35 06:35 Sodium 138 Potassium 3.5 Chloride 102 Carbon Dioxide 25.4 Anion Gap 10.6 BUN 14 Creatinine 1.3 H Est GFR (CKD-EPI 2020) 41.57 Glucose 129 H Calcium 9.0 Magnesium 1.9 Troponin I < 50 Add-On Test Request DONE Preliminary micro results at discharge 09/14/22 11:20 Blood Culture - Preliminary Blood NO GROWTH 72 HOURS 09/14/22 11:15 Blood Culture - Preliminary Blood NO GROWTH 72 HOURS PFSH All Active Problems (Updated 09/18/22 @ 21:59 by Cintia Landry MD) Hydronephrosis, right (Acute) Decreased activities of daily living (ADL) (Acute) Discharge planning issues (Acute) DVT prophylaxis (Acute) Acute UTI (Acute) Kidney stone on right side (Acute) Acute UTI (Acute) DNR (do not resuscitate) (Acute) Poor appetite (Acute) Palliative care patient (Acute) Glaucoma (Chronic) Alzheimer's dementia (Chronic) Atrial fibrillation (Chronic) Medical History Congestive heart failure Diabetes mellitus GI bleed HTN (hypertension) Hx of hyperlipidemia Hypothyroidism Family History Father Heart disease Hypertension Social History Smoking/Tobacco Use Status: Former Tobacco Use Smoking risk assessment performed?: Yes Alcohol Intake: never Drug use: Never Substance use type: does not use Adopted: No Caregiver/Support person: Yes Foster care: No Household members: family Housing: house Number of Children: 2 number of grandchildren: 4 Communication Needs: None Education Level: high school Do you need help understanding health information?: Always current occupation: Retired Pets and animals: Yes (1) Pets and animals: cat(s) Sexually active: No Do you think of yourself as: straight/heterosexual Current gender identity: female What is your relationship status?: How often do you talk on the phone with friends or family?: three or more times per week How often do you get together with friends or relatives?: three or more times per week Do you belong to any clubs or organized social groups?: no Panel score (0-1 are the most socially isolated patients): 1 Debo/Anglican: Oriental Orthodox Special debo needs: No Seatbelt use: always Drive intox or ride w/intox clark 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 Time Spent with Patient Time Spent with Patient: 45-69 minutes Time was spent: preparing to see the patient(eg.review tests), obtaining and/or reviewing separately otained hiistory, ordering medications,tests, procedures, referring, communicating with other health critical care specialist, indepentently interpreting results, counseling the patient and care coordination
--- NOTE | 2022-09-18 12:30 | PDOC.CMDIS ---
- If Service Date Differs Date of service: 09/18/22 Time of Service: 12:30 LACE Index Scoring Tool - Questions: Length of Stay (in days): 4 - 6 Acuity (Admit via E.D.?): Yes Comorbidities: Diabetes w/o Complication, Dementia E.D. Visits: 4 - Answers: Total Score: 16 Risk of Readmission: High Risk Care Management Discharge Reason for Hospitalization: Kidney Stone with UTI Discharge Plan: Chasidy is discharged home via private vehicle with Daughter/Caregiver Ira. She will follow up with community providers and discharge plan of care as prescribed. Pt will follow up with her Dr. Amaya, Dr. Ingram and Palliative, as scheduled. [facility] No services are ordered. Patient/Family Education Needs: Review discharge instructions, limitations, medications and plan to follow up with community providers. Discuss ask me three and goals of self care.
[2022-09-18] MEDS: Cefpodoxime 200 MG TAB PO (12:38)
[2022-09-18] MEDS: Metoprolol CR 100 MG TABCR PO (12:38)
[2022-09-18 13:27] VITALS: PULSE 99
== END 2022-09-18 14:49 | disposition home or self-care (01) | DRG 690 ==
LOC: ER 07:07 → MS 08:52
PROVIDERS: Internal Medicine; Nurse Practitioner Family; Urology; Admitting Provider Family Medicine; Emergency Provider Student in an Organized Health Care Education/Training Program; PCP Family Medicine; Visit Provider Family Medicine
PROC: 0T9680Z Drainage of Right Ureter with Drainage Device, Via Natural or Artificial Opening Endoscopic (ICD-10-PCS; CPT 74450; principal; 2022-09-14 11:15)
DX: N13.6 Pyonephrosis (principal); N17.9 Acute kidney failure, unspecified; G30.9 Alzheimer's disease, unspecified; I48.0 Paroxysmal atrial fibrillation; F02.80 Dementia in other diseases classified elsewhere, unspecified severity, without behavioral disturbance, psychotic disturbance, mood disturbance, and anxiety; E03.9 Hypothyroidism, unspecified; I50.9 Heart failure, unspecified; I11.0 Hypertensive heart disease with heart failure; E11.9 Type 2 diabetes mellitus without complications; E78.5 Hyperlipidemia, unspecified; Z66 Do not resuscitate; Z79.01 Long term (current) use of anticoagulants
CPT/HCPCS: 52332; 36410; 36415; 71250; 80048; 80053; 87040; 87635; 96361; 96365; 96366; 97162; 97530; 99221; 99231; 99285; 74176; 74420; 82607; 82728; 82746; 83540; 83550; 83735; 84484; 85025; 87086; 93005; 93010; 93306; 99223; 99232; 99233; 99239; J1956; J3420; J3475; J3480; J3490; Q9967

== ENCOUNTER 2022-10-01 07:38 | Day surgery (SDC) | payer MEDICARE, SELFPAY ==
[2022-10-01] VITALS (8 sets, daily range): BP systolic 120–154; BP diastolic 55–98; PULSE 72–88; RESP 14–19; TEMP 36.5–36.7; O2SAT 95–98; BMI 21.9
--- NOTE | 2022-10-01 07:49 | ANES.PREOP_ITS ---
General Info Date of Service Date Performed: 10/01/22 Height: 5 ft 5 in Weight: 59.874 kg Body Mass Index (BMI): 21.9 Surgical Procedure: Operation Date: 10/01/22 08:40 Proposed Procedure Side Surgeon p Cystoscopy/Laser/Ureteroscopy/Stent Removal Right Corey Ingram MD Meds Allergies and Home Medications Allergies Allergy/AdvReac Type Severity Reaction Status Date / Time Latex, Natural Rubber Allergy Intermediate rash Verified 10/01/22 07:03 Penicillins Allergy Skin Rash Verified 10/01/22 07:03 Home Medication Medication Instructions Recorded donepezil 10 mg tablet 10 mg PO QHS #90 tabs 10/02/21 levothyroxine 100 mcg tablet 100 mcg PO DAILY #90 tabs 10/02/21 paroxetine HCl 20 mg tablet 20 mg PO DAILY #30 tabs 10/22/21 metformin 1,000 mg tablet 1,000 mg PO BID #180 tabs 07/17/22 nystatin 100,000 unit/gram topical 1 applic topical BID PRN skin 07/27/22 powder irritation #60 grams atorvastatin 40 mg tablet 40 mg PO DAILY AM 09/14/22 cefpodoxime 200 mg tablet 200 mg PO BID #28 tabs 09/18/22 ferrous sulfate 325 mg (65 mg 325 mg PO BID #60 tabs 09/18/22 iron) tablet folic acid 1 mg tablet 1 mg PO DAILY #30 tabs 09/18/22 lisinopril 2.5 mg tablet 2.5 mg PO DAILY #30 tabs 09/18/22 metoprolol succinate 100 mg 100 mg PO DAILY #30 tabs 09/18/22 tablet,extended release 24 hr (Toprol XL) rivaroxaban 15 mg tablet (Xarelto) 15 mg PO DAILY@1700 #30 tabs 09/18/22 Current Visit Medications: Current Medications Generic Name Dose Route Start Last Admin Trade Name Freq PRN Reason Stop Dose Admin Ringer's Solution 1,000 mls @ 80 mls/hr 10/01/22 06:00 IV 10/30/22 23:59 INFUSION [facility] IV Miscellaneous Supplies 1 each 10/01/22 06:00 Iv Access IV 10/30/22 23:59 DIRECTED MARIELA Levofloxacin 250 mg/ 750 mg 10/01/22 08:30 Levofloxacin 500 mg PO QAM [facility] Sodium Chloride 0 ml 10/01/22 06:00 Normal Saline Flush 10 Ml Syr IV 10/30/22 23:59 PRN PRN Sodium Chloride 0 ml 10/01/22 06:00 Normal Saline 10 Ml Vial IJ 10/30/22 23:59 DIRECTED PRN Sterile Water 0 ml 10/01/22 06:00 Water,Injection,Sterile 10 Ml Vial IJ 10/30/22 23:59 DIRECTED PRN PFSH Active Problems Active Problems: Problem Status Onset Code Hydronephrosis, right N13.30 Decreased activities of daily living (ADL) Z78.9 Acute UTI N39.0 Kidney stone on right side N20.0 Poor appetite R63.0 Palliative care patient Z51.5 Glaucoma H40.9 Alzheimer's dementia G30.9, F02.80 Atrial fibrillation I48.91 Medical History Medical History Congestive heart failure Diabetes mellitus GI bleed HTN (hypertension) Hx of hyperlipidemia Hypothyroidism Tobacco Smoking/Tobacco Use Status: Former Tobacco Use Alcohol Alcohol Intake: never Substance Use Substance use: Never Substance use type: does not use Vital Signs and Lab Results Lab Results Blood Type / Crossmatch: No Data to Display Complete Blood Count: White Blood Count 4.42 10^3/uL (4.4-10.8) 09/17/22 06:35 Red Blood Count 3.55 10^6/uL (3.93-5.22) L 09/17/22 06:35 Hemoglobin 9.4 g/dL (11.2-15.7) L 09/17/22 06:35 Hematocrit 29.1 % (36.0-46.0) L 09/17/22 06:35 Platelet Count 213 10^3/uL (130-400) 09/17/22 06:35 Complete Metabolic Panel: Sodium 138 mmol/L (136-145) 09/17/22 06:35 Potassium 3.5 mmol/L (3.5-5.1) 09/17/22 06:35 Chloride 102 mmol/L (98-107) 09/17/22 06:35 Carbon Dioxide 25.4 mmol/L (21.0-32.0) 09/17/22 06:35 BUN 14 mg/dL (7-18) 09/17/22 06:35 Creatinine 1.3 mg/dL (0.55-1.02) H 09/17/22 06:35 Est GFR (CKD-EPI 2020) 41.57 (mL/min/1.73m2) 09/17/22 06:35 Magnesium 1.9 mg/dL (1.8-2.4) 09/17/22 06:35 Calcium 9.0 mg/dL (8.5-10.1) 09/17/22 06:35 Albumin 4.0 g/dL (3.4-5.0) 09/14/22 02:50 Glucose 129 mg/dL (74-106) H 09/17/22 06:35 Liver Function Panel: Alanine Aminotransferase (ALT/SGPT) 9 U/L (14-59) L 09/14/22 02 :50 Aspartate Amino Transf (AST/SGOT) 16 U/L (15-37) 09/14/22 02:50 Coagulation Panel: No Data to Display Cardiac Panel: Troponin I < 50 ng/L (<or=60) 09/17/22 Arterial Blood Gas: No Data to Display Venous Blood Gas: No Data to Display Pancreas Panel: No Data to Display Thyroid Panel: No Data to Display Infectious Disease: Coronavirus (COVID-19)(PCR) Negative (Negative) 09/14/22 04:10 Coronavirus 2019 Source Nasal/Nares 09/14/22 04:10 Blood Cultures: No Data to Display Toxicology Panel: No Data to Display Imaging and Studies Imaging and Studies Study information below may be from another EMR and interpreted by another provider. Please see original notes in EMR for more complete details. EKG Summary: 05/28: afib, LVH, QTc 521. LAD with LAFB. Echocardiogram Summary: 10/2017: LVEF 60-65%, normal LV fxn. trace MR, trace AR, trace TR, Anesthesia Assessment and Plan Anesthesia History Personal History: No History of Anesthesia Complications Family History: No Family History of Anesthesia Complications Exercise Tolerance Exercise Tolerance: Metabolic Equivalents<4 Pertinent Negatives Pertinent Negatives: No Symptoms of GERD and No Major Pulmonary Symptoms or Complaints Cardiac & Pulmonary Exam Cardiac Exam: Normal S1/S2 Heart Sounds Pulmonary Exam: Clear Bilateral Breath Sounds Implantable Cardiac Device Does patient have a Pacemaker or an ICD?: No Airway Exam Known Difficult Airway: No Mallampati Class: 1 Mouth Opening: Normal (> 3cm) Thyromental Distance: Greater than 3 cm Neck Range of Motion: Full ROM Neck Circumference: Normal Teeth Condition: Removable Dentures/Plates Upper, Removable Dentures/Plates Lower and Edentulous ASA Classification ASA Score: ASA 3 Emergency Case?: No NPO Status NPO Status: NPO Clears >2 hours, Solids >8 hours Anesthesia Plan Resuscitation Status: DNR Modified During Perioperative Period Resuscitation Modifications: CPR Refused and Pt. Requests for Clinical Judgement to be Used Anesthesia Technique: General Anesthesia Airway Planned: Endotracheal Tube Monitors Used: Standard Monitors Preoperative Comments:: 82 female with UTI and obstruction. came in last night via the ED. has received levofloxacin and a 500 mL bolus. On chatting with her she is very pleasant, but does not seem to know where she is or why she is here. Sig PMHx: Alzheimer/dementia (donepezil), CHF, HTN (lisinopril, metoprolol), hypothyroid (on replacement), afib (dilt, rivaroxaban), DM, former smoker, GFR 28.
--- NOTE | 2022-10-01 08:07 | W.PM.HP.N ---
Date of service: 10/01/22 Time of Service: 08:07 Assessment and Plan Assessment and plan (1) Hydronephrosis, right: Status: Acute Assessment and plan: We will plan to do cystoscopy and remove her right ureteral stent. We will pass of ureteroscope up to her known stone and treat the stone with the holmium laser. We may need to replace the stent depending on the amount of edema and trauma that we encounter. History of Present Illness History of Present Illness Chief Complaint: Right ureteral stone Narrative: This is an 82-year-old woman who was seen previously when she was hospitalized. She was found to have right hydronephrosis due to a right ureteral stone. Concerned that she had urosepsis, so we placed a ureteral stent but did not do ureteroscopy to treat her stone. Her cultures ultimately showed no bacterial growth in the urine or in the blood. She presents now for ureteroscopy and holmium laser lithotripsy of her right ureteral stone. Review of Systems Unobtainable due to mental status PFSH All Active Problems Hydronephrosis, right (Acute) Decreased activities of daily living (ADL) (Acute) Acute UTI (Acute) Kidney stone on right side (Acute) Poor appetite (Acute) Palliative care patient (Acute) Glaucoma (Chronic) Alzheimer's dementia (Chronic) Atrial fibrillation (Chronic) Medical History Congestive heart failure Diabetes mellitus GI bleed HTN (hypertension) Hx of hyperlipidemia Hypothyroidism Family History Father Heart disease Hypertension Social History Smoking/Tobacco Use Status: Former Tobacco Use Quit Date: 09/06/59 Smoking risk assessment performed?: Yes Alcohol Intake: never Drug use: Never Substance use type: does not use Adopted: No Caregiver/Support person: Yes Foster care: No Household members: family Housing: house Number of Children: 2 number of grandchildren: 4 Communication Needs: None Education Level: high school Do you need help understanding health information?: Always current occupation: Retired Pets and animals: Yes (1) Pets and animals: cat(s) Sexually active: No Do you think of yourself as: straight/heterosexual Current gender identity: female What is your relationship status?: How often do you talk on the phone with friends or family?: three or more times per week How often do you get together with friends or relatives?: three or more times per week Do you belong to any clubs or organized social groups?: no Panel score (0-1 are the most socially isolated patients): 1 Debo/Rastafarian: Roman Catholic Special debo needs: No Seatbelt use: always Drive intox or ride w/intox equipment driver: No Additional Social history: unable to assess Waffle Meds Allergies and Home Medications Allergies Allergy/AdvReac Type Severity Reaction Status Date / Time Latex, Natural Rubber Allergy Intermediate rash Verified 10/01/22 07:03 Penicillins Allergy Skin Rash Verified 10/01/22 07:03 Home Medications Medication Instructions Recorded Confirmed Type donepezil 10 mg tablet 10 mg PO QHS #90 tabs 10/02/21 10/01/22 Rx levothyroxine 100 mcg tablet 100 mcg PO DAILY #90 tabs 10/02/21 10/01/22 Rx paroxetine HCl 20 mg tablet 20 mg PO DAILY #30 tabs 10/22/21 10/01/22 Rx metformin 1,000 mg tablet 1,000 mg PO BID #180 tabs 07/17/22 10/01/22 Rx nystatin 100,000 unit/gram topical 1 applic topical BID PRN skin 07/27/22 09/30/22 Rx powder irritation #60 grams atorvastatin 40 mg tablet 40 mg PO DAILY AM 09/14/22 10/01/22 History cefpodoxime 200 mg tablet 200 mg PO BID #28 tabs 09/18/22 10/01/22 Rx ferrous sulfate 325 mg (65 mg 325 mg PO BID #60 tabs 09/18/22 10/01/22 Rx iron) tablet folic acid 1 mg tablet 1 mg PO DAILY #30 tabs 09/18/22 10/01/22 Rx lisinopril 2.5 mg tablet 2.5 mg PO DAILY #30 tabs 09/18/22 10/01/22 Rx metoprolol succinate 100 mg 100 mg PO DAILY #30 tabs 09/18/22 10/01/22 Rx tablet,extended release 24 hr (Toprol XL) rivaroxaban 15 mg tablet (Xarelto) 15 mg PO DAILY@1700 #30 tabs 09/18/22 09/30/22 Rx Exam Const General: frail appearing Neck Neck: supple Resp Effort & Inspection: normal respiratory effort Auscultation: clear to auscultation bilaterally Cardio Rate: abnormal rate Rhythm: abnormal rhythm GI Palpation: soft Neuro General: patient alert, patient awake and not oriented x3 Results Last Vital Signs Temp 36.6 C 10/01/22 07:44 Pulse 87 10/01/22 07:44 Resp 18 10/01/22 07:44 BP 154/75 H 10/01/22 07:44 Pulse Ox 97 10/01/22 07:44 Time Spent Time spent with Patient: <40 minutes Time was spent: obtaining and/or reviewing separately otained hiistory and counseling the patient
[2022-10-01] MEDS: Lactated Ringers 1,000 ML 80 ML IV (08:10)
--- NOTE | 2022-10-01 08:15 | DI.RAD_ITS ---
Exam(s) XR RETROGRADE IN OR EXAM: XR RETROGRADE IN OR CLINICAL HISTORY: Hydronephrosis, right. TECHNIQUE: 2D digital imaging was performed. COMPARISON: No exams were available for comparison FINDINGS: Fluoroscopy provided during urologic procedure. See procedure report for details. Radiation exposure index: Sendyr= 1.95mGy IMPRESSION: DATA REPOSITORY: RADIATION DOSE DELIVERED:
--- NOTE | 2022-10-01 09:07 | DI.RAD_ITS ---
Exam(s) XR SHOULDER LT COMPLETE 2+V EXAM: XR SHOULDER LT COMPLETE 2+V CLINICAL HISTORY: left shoulder swelling and pain. TECHNIQUE: 2D digital imaging was performed. COMPARISON: No exams were available for comparison FINDINGS: 3 views No evidence of acute fracture nor dislocation. No glenohumeral joint space narrowing. There is some calcification in soft tissues just above the greater tuberosity consistent with calcific tendinitis. Subacromial space not diminished. There is some degenerative changes in the AC joint. Mild degene rative changes in the glenohumeral joint. There is an oblique orientated calcific density noted medially which is most probably within the chely coid clavicular ligament. IMPRESSION: Calcific rotator cuff tendinitis. Degenerative cysts are noted in the lateral aspect of the humeral head-greater tuberosity region. Also degenerative change in the AC joint. Partially calcified coracoclavicular ligament. DATA REPOSITORY: RADIATION DOSE DELIVERED:
--- NOTE | 2022-10-01 09:35 | NUR.NOTE ---
when pt arrived in [facility] she c/o discomfort left arm. Care was taken to move pt arm very gently. Daughter with pt says she does not know what happened to pt's arm. while changing wet sheets and gown on pt she screamed in pain while slightly rolling either way. Dr Ingram notified. Pt's left shoulder seems larger than right shoulder and is very painful. Dr Ingram consulted with Dr Cabral and a shoulder xray was completed. Waiting for Dr Cabral to come to examine xray and pt. Also when pt was turned it was noted that pts buttocks in the crease are very red. Reported to Dr Ingram. Nursing Note:
--- NOTE | 2022-10-01 10:38 | W.ORTHOCONSU ---
Date of service: 10/01/22 Time of Service: 10:39 Consult Reason Left shoulder pain Assessment and Plan Assessment and plan (1) Rotator cuff tear arthropathy of left shoulder: Status: Acute Assessment and plan: 82-year-old female with left shoulder pain probably due to rotator cuff arthropathy and calcific tendinitis, but need to rule out septic arthritis given significant discomfort with any attempted short arc passive motion Patient with a short history of left shoulder pain. Difficult historian due to dementia. Probably localizes to the shoulder but she points to her arm biceps. No fevers or chills. No redness or drainage. Here today for kidney stone procedure with Dr. Ingram. Exam shows elderly appearing female with obvious left shoulder anterior superior prominence. No erythema, probable effusion, unclear tenderness about the shoulder. Unfortunately, she is unable to tolerate any passive range of motion about the shoulder including a limited internal and external rotation exam and on repeat examination really complains of shoulder discomfort. She is comfortable at rest without any motion. No edema, tenderness, or issues of the elbow forearm wrist or hand. Right shoulder without any deformity, problems, or discomfort. Left shoulder x-rays reviewed showing moderate glenohumeral degenerative changes without any significant superior migration. Moderate AC joint arthritis. Probable calcific tendinitis, which may reflect a chronic medialized rotator cuff tear. Clinically does not appear to be an infection. Patient is not septic. However, should obtain baseline infectious inflammatory markers to help rule out septic joint. Recommend CBC with differential, ESR, and CRP. Would then obtain fluid sample with arthrocentesis if indicated. Discussed with patient, her daughter, and her primary surgeon Lab work reassuring with normal WBC and ESR. CRP is mildly elevated, but that could be due to urologic reasons. Patient remains afebrile. Shoulder stable. Recommend treating arthritic flare, possible calcific tendinitis, with NSAIDs, ice, and gentle use. Should any significant redness, warmth, or fever/chills develop, would aspirate joint at that time. Follow-up with me as needed. PFSH All Active Problems (Updated 10/01/22 @ 10:36 by Jose E Cabral MD) Rotator cuff tear arthropathy of left shoulder (Acute) Hydronephrosis, right (Acute) Decreased activities of daily living (ADL) (Acute) Acute UTI (Acute) Kidney stone on right side (Acute) Poor appetite (Acute) Palliative care patient (Acute) Glaucoma (Chronic) Alzheimer's dementia (Chronic) Atrial fibrillation (Chronic) Medical History Congestive heart failure Diabetes mellitus GI bleed HTN (hypertension) Hx of hyperlipidemia Hypothyroidism Family History Father Heart disease Hypertension Social History Smoking/Tobacco Use Status: Former Tobacco Use Quit Date: 09/06/59 Smoking risk assessment performed?: Yes Alcohol Intake: never Drug use: Never Substance use type: does not use Adopted: No Caregiver/Support person: Yes Foster care: No Household members: family Housing: house Number of Children: 2 number of grandchildren: 4 Communication Needs: None Education Level: high school Do you need help understanding health information?: Always current occupation: Retired Pets and animals: Yes (1) Pets and animals: cat(s) Sexually active: No Do you think of yourself as: straight/heterosexual Current gender identity: female What is your relationship status?: How often do you talk on the phone with friends or family?: three or more times per week How often do you get together with friends or relatives?: three or more times per week Do you belong to any clubs or organized social groups?: no Panel score (0-1 are the most socially isolated patients): 1 Debo/Roman Catholic: Catholic Special debo needs: No Seatbelt use: always Drive intox or ride w/intox courtesy car driver: No Additional [facility] history: [facility] Results Last Vital Signs Temp 97.9 F 10/01/22 07:44 Pulse 87 10/01/22 07:44 Resp 18 10/01/22 07:44 BP 154/75 H 10/01/22 07:44 Pulse Ox 97 10/01/22 07:44 Labs Result diagrams: 10/01/22 10:45
[2022-10-01 10:54] LABS: Abs Immature Grans 0.03 10^3/uL (0.0-0.06); Absolute Basophil Count 0.04 10^3/uL (0.0-0.2); Absolute Eosinophil Count 0.13 10^3/uL (0.0-0.7); Absolute Lymphocyte Count 0.91 10^3/uL (1.2-3.4); Absolute Monocyte Count 0.96 10^3/uL (0.1-0.8); Basophils % 0.5; Eosinophils % 1.5; HCT 31.2 % (36.0-46.0); HGB 10.3 g/dL (11.2-15.7); Immature Grans % 0.3; Lymphocytes % 10.4; MCH 26.7 pg (27.0-33.0); MCV 81 fL (80-95); MPV 10.2 fL (8.0-11.0); Monocytes % 10.9; Neutrophils % 76.4; Platelet Count 226 10^3/uL (130-400); RBC 3.86 10^6/uL (3.93-5.22); RDW 14.7 % (11.7-14.6); RDW-SD 43.3 fL; WBC 8.77 10^3/uL (4.4-10.8)
[2022-10-01 10:56] LABS: ESR 26 mm/hr (0-30)
[2022-10-01 11:06] LABS: C-Reactive Protein 2.79 mg/dL (0.0-0.3)
[2022-10-01] MEDS: Lidocaine 2% Jelly 6 ML SYR (11:25)
[2022-10-01] MEDS: Omnipaque 300 MG/ML 50 ML BTL (11:33)
--- NOTE | 2022-10-01 11:59 | W.PM.DSUDISC ---
Date of service: 10/01/22 Time of Service: 12:06 Discharge Plan Disposition Patient Disposition: Home Condition: Stable Discharge Details Attending Provider: Corey Ingram Primary Care Provider: Tariq Tolentino Home Meds and New Rx's Prescriptions: New A and D Diaper Rash Cream 1-10 % cream 1 applic topical DAILY Qty: 113 0RF No Action nystatin 100,000 unit/gram powder 1 applic topical BID PRN (Reason: skin irritation) Qty: 60 0RF donepezil 10 mg tablet 10 mg PO QHS Qty: 90 3RF levothyroxine 100 mcg tablet 100 mcg PO DAILY Qty: 90 3RF paroxetine HCl 20 mg tablet 20 mg PO DAILY Qty: 30 0RF metformin 1,000 mg tablet 1,000 mg PO BID Qty: 180 3RF atorvastatin 40 mg tablet 40 mg PO DAILY AM Label Comments: TAKE 1 TABLET BY MOUTH EVERY EVENING ferrous sulfate 325 mg (65 mg iron) Tablet 325 mg PO BID Qty: 60 0RF folic acid 1 mg Tablet 1 mg PO DAILY Qty: 30 0RF Xarelto 15 mg Tablet 15 mg PO DAILY@1700 Qty: 30 0RF lisinopril 2.5 mg tablet 2.5 mg PO DAILY Qty: 30 0RF cefpodoxime 200 mg tablet 200 mg PO BID Qty: 28 0RF Rx Instructions: must administer with a meal/food metoprolol succinate [Toprol XL] 100 mg tablet extended release 24 hr 100 mg PO DAILY Qty: 30 0RF Discharge Instructions Additional Instructions: OK to restart anticoagulants use ice packs and anti-inflammatory meds as needed for shoulder apply barrier cream to backside no need to strain urine followup appt 6 to 8 weeks for renal US to be done in office Activity:: Activity as Tolerated Shower/Bathe:: 24 hours Diet:: As Tolerated Discharge Orders Discharge Orders: Discharge Order (Routine); Ordered 10/01/22 Ordered By: Corey Ingram DS: Diagnosis Discharge Diagnosis (1) Rotator cuff tear arthropathy of left shoulder: Status: Acute
--- NOTE | 2022-10-01 12:06 | ROE_ITS ---
Date of service: 10/01/22 Time of Service: 12:06 Operative Note Operative Note DATE OF PROCEDURE: 10/01/22 PRE-OP DIAGNOSIS: Right ureteral stone POST-OP DIAGNOSIS: same PROCEDURE: Cystoscopy, remove right ureteral stent, right retrograde pyelogram, right ureteroscopy with holmium laser lithotripsy, stone extraction SURGEON: Corey Ingram ANESTHESIA TYPE: Local By Surgeon and General LMA/ETT Refer to Anesthesia Record ESTIMATED BLOOD LOSS: 5 PATHOLOGY: other (stone for chemical analysis) COMPLICATIONS: None Patient was transported to: PACU Patient's condition: stable Implants: none Indications: This is an 82-year-old woman who was previously seen when she was hospitalized for a urinary tract infection with right hydronephrosis. She was found to have a right distal ureteral stone. Because of the concern for urosepsis, she was treated with placement of a ureteral stent and antibiotics. Her urine and blood culture results ultimately showed no bacterial growth. She presents now for stone manipulation. Findings: right distal ureteral stone Procedure Description: Mrs Boggs was brought to the operating room on 10/01/2022. She was given preoperative antibiotics. After successful induction of general anesthesia, she was placed in the dorsal lithotomy position. Her genitalia was prepped and draped. 2% Xylocaine jelly was instilled into the urethra to act as a local anesthetic. A 22 Romanian rigid cystoscope was passed through the urethra into the bladder. The bladder was inspected with a 30 degree lens. The left ureteral orifice appeared normal. There was some erythema surrounding the right ureteral orifice. Stent could be seen coming from the right orifice. The stent was grasped and alligator forceps and brought to the level of the urethral meatus. A Glidewire was advanced through the lumen of the stent and the stent was removed leaving the wire in place. I then passed a dual-lumen catheter over the wire and positioned the catheter tip in the distal ureter. I then injected Omnipaque through the second lumen of the dual-lumen catheter in order to obtain a retrograde pyelogram. A filling defect was then outlined in the distal ureter. Based on the location of the stone, we elected to use the semirigid ureteroscope. The dual-lumen catheter was removed and the wire was left in place to act as a safety wire. The semirigid ureteroscope was passed through the urethra into the bladder. The scope was advanced into the right ureteral orifice and the scope was advanced up the ureter until a stone was visualized. The stone appeared impacted in the distal ureter. We used a 365 ?m holmium laser fiber to fragment the stone. We used a power setting of 0.8 and a rate of 8. The stone ultimately fragmented and became free from the dubose of the ureter. We were then able to stop the lithotripsy and grasped the stone and a Tali stone basket. The stone was extracted in its entirety and sent to pathology for chemical analysis. I then reinserted the semirigid ureteroscope and ran the scope up the distal ureter. No additional fragments were identified there was no evidence of ureteral injury, so we elected not to place a ureteral stent back in. The patient tolerated this procedure well with no complications.
--- NOTE | 2022-10-01 15:11 | W.ANESPOSTOP ---
Postoperative Evaluation Date, Time and Location Date Performed: 10/01/22 Time Performed: 14:06 Patient Location: Day Surgery Unit Vital Signs Most Recent Imported Vital Signs: Most Recent Vital Signs Temp Pulse Resp BP Pulse Ox 36.5 C 85 16 136/72 95 10/01/22 13:19 10/01/22 13:19 10/01/22 13:19 10/01/22 13:19 10/01/22 13:19 Pain Score Most Recent Pain Score: Most Recent Pain Score Pain Level 0 10/01/22 13:19 Assessment Mental Status: Awake (Alert & Oriented to Patient Baseline) Airway and Respiratory Function: Patent airway with normal (patient baseline) respiratory exam Cardiovascular Function: Hemodynamically Stable Hydration Status: Adequately Hydrated Nausea & Vomiting: No Nausea or Vomiting Pain: Pt. Denies Any Pain Peripheral Nerve Block: Patient did not receive a nerve block
[2022-10-14 23:32] LABS: Source: Right Ureter
== END 2022-10-01 14:57 | disposition home or self-care (01) ==
PROVIDERS: PCP Family Medicine; Visit Provider Urology
PROC: (CPT 52353; principal; 2022-10-01 08:30)
DX: N13.2 Hydronephrosis with renal and ureteral calculous obstruction (principal); M75.102 Unspecified rotator cuff tear or rupture of left shoulder, not specified as traumatic; M19.012 Primary osteoarthritis, left shoulder
CPT/HCPCS: 52353; 36415; 85652; 99283; 73030; 74420; 82365; 85025; 86140; J1100; J2370; J2405; J2704; Q9967

== ENCOUNTER 2022-11-08 13:11 | Emergency (ER) | payer MEDICARE, SELFPAY ==
[2022-11-08 13:09] VITALS: BP 143/70; PULSE 72; RESP 16; TEMP 36.7; O2SAT 97
[2022-11-08 13:18] VITALS: RESP 16
--- NOTE | 2022-11-08 13:30 | DI.CT_ITS ---
Exam(s) CT HEAD WO EXAM: CT HEAD WO CLINICAL HISTORY: ams. TECHNIQUE: Imaging Protocol: Axial computed tomography images with coronal and sagittal reformatted images were created and reviewed COMPARISON: No exams were available for comparison FINDINGS: There are no skull fractures. There is no fluid in the visualized paranasal sinuses. There is no evidence of intracranial hemorrhage, mass effect, or shift of midline structures. There are no extra-axial fluid collections. The ventricles are not enlarged or shifted and there is no blo od within the ventricular system nor within the basal cisterns. There is bilateral periventricular hypodensity consistent with chronic small vessel disease. There i s is symmetrical involutional change consistent with patient's advanced age. IMPRESSION: No acute intracranial findings on this noninfused CT scan of the brain. Chronic small-vessel white matter ischemic changes. Relatively symmetrical atrophy. RADIATION DOSE DELIVERED: 712.96mGy.cm Total DLP DATA REPOSITORY: All CT scans at this facility are submitted to the National Radiology Data Registry (NRDR) Dose Index Registry (DIR) with the [employer] (A[employer]). RADIATION OPTIMIZATION: All CT scans at this facility use at least one of these dose optimization te chniques: automated exposure control; mA and/or kV adjustment per patient size (includes targeted exa ms where dose is matched to clinical indication); or iterative reconstruction.
--- NOTE | 2022-11-08 13:44 | DI.RAD_ITS ---
Exam(s) XR CHEST 1V IN DI DEPT EXAM: XR CHEST 1V IN DI DEPT CLINICAL HISTORY: ams. TECHNIQUE: 2D digital imaging was performed. COMPARISON: CR XR PORTABLE CHEST AP from 05/28/2022 FINDINGS: Single AP portable view. Heart size is upper normal. The mediastinum is not widened. Lungs are clear. No infiltrates nor obvious pleural effusions. IMPRESSION: No acute pulmonary findings on this single AP portable view of the chest. DATA REPOSITORY: RADIATION DOSE DELIVERED:
[2022-11-08 14:02] LABS: Abs Immature Grans 0.02 10^3/uL (0.0-0.06); Absolute Basophil Count 0.03 10^3/uL (0.0-0.2); Absolute Eosinophil Count 0.06 10^3/uL (0.0-0.7); Absolute Lymphocyte Count 1.39 10^3/uL (1.2-3.4); Absolute Monocyte Count 0.56 10^3/uL (0.1-0.8); Absolute Neutrophil Count 4.17 10^3/uL (1.2-6.7); Basophils % 0.5; HCT 43.7 % (36.0-46.0); HGB 13.3 g/dL (11.2-15.7); Immature Grans % 0.3; Lymphocytes % 22.3; MCH 25.1 pg (27.0-33.0); MCHC 30.4 % (32.0-36.0); MCV 83 fL (80-95); MPV 10.6 fL (8.0-11.0); Neutrophils % 66.9; Platelet Count 241 10^3/uL (130-400); RDW 15.1 % (11.7-14.6); RDW-SD 45.8 fL; WBC 6.23 10^3/uL (4.4-10.8)
[2022-11-08 14:26] LABS: ALT 8 U/L (14-59); AST 10 U/L (15-37); Albumin 4.4 g/dL (3.4-5.0); Alkaline Phosphatase 73 U/L (46-116); Anion Gap 14.7 mmol/L (3-11); BUN 20 mg/dL (7-18); Bilirubin, Total 0.8 mg/dL (0.2-1.0); CO2 26.3 mmol/L (21.0-32.0); CREATININE 1.4 mg/dL (0.55-1.02); Calcium 10.2 mg/dL (8.5-10.1); Chloride 102 mmol/L (98-107); ETHANOL BLOOD < 3.0 mg/dL (<10); Estimated GFR 38.03 (mL/min/1.73m2); Glucose 124 mg/dL (74-106); Potassium 3.7 mmol/L (3.5-5.1); Sodium 143 mmol/L (136-145); TSH (W/Ref FT4) 0.29 uIU/mL (0.36-3.74); Total Protein 8.6 g/dL (6.4-8.2)
[2022-11-08] MEDS: Normal Saline 500 ML 1000 ML IV (14:35)
[2022-11-08 14:42] LABS: FREE T4 1.44 ng/dL (0.76-1.46)
--- NOTE | 2022-11-08 14:46 | ED.GENADUL_ITS ---
Discharge Plan Disposition Patient Disposition: Home Condition: Improving Discharge Details Chief Complaint: AMS/LOC Clinical Impression: Altered mental status Primary Care Provider: Tariq Tolentino ED Provider: Mo Cornelius Home Meds and New Rx's Prescriptions: No Action nystatin 100,000 unit/gram powder 1 applic topical BID PRN (Reason: skin irritation) Qty: 60 0RF metformin 1,000 mg tablet 1,000 mg PO BID Qty: 180 3RF donepezil 10 mg tablet 10 mg PO QHS Qty: 90 3RF levothyroxine 100 mcg tablet 100 mcg PO DAILY Qty: 90 3RF ferrous sulfate 325 mg (65 mg iron) tablet 325 mg PO BID Qty: 180 0RF folic acid 1 mg tablet 1 mg PO DAILY Qty: 90 0RF lisinopril 2.5 mg tablet 2.5 mg PO DAILY Qty: 90 3RF metoprolol succinate [Toprol XL] 100 mg tablet extended release 24 hr 100 mg PO DAILY Qty: 90 3RF paroxetine HCl 20 mg tablet 20 mg PO DAILY Qty: 90 3RF Xarelto 15 mg tablet 15 mg PO DAILY@1700 Qty: 90 3RF atorvastatin 40 mg tablet 40 mg PO DAILY AM Qty: 90 3RF cefpodoxime 200 mg tablet 200 mg PO BID Qty: 28 0RF Rx Instructions: must administer with a meal/food A and D Diaper Rash Cream 1-10 % cream 1 applic topical DAILY Qty: 113 0RF Discharge Instructions Instructions: Altered Mental Status (ED) Additional Instructions: Please follow with your primary care physician. Medical Decision Making 82-year-old female referred in by family for evaluation of altered mental status over the last 2 days, no external signs of trauma, patient interactive slightly confused speech without dysarthria cranial nerves intact 5 and 5 strength upper and lower extremities hemodynamically stable afebrile. Consider UTI versus dehydration versus lecture abnormality versus intracranial process such as bleed mass or edema lower suspicion for CVA; screening labs imaging close reassessme nt. 16: 23 patient is at her baseline. Labs imaging largely unremarkable. Family feels comfortable taking her home. Consider progressive dementia versus resolved delirium lower suspicion for CVA or TIA. HPI General Date/Time Provider Initiated Documentation: 11/08/22 13:26 . HPI Narrative: 82-year-old female history of diabetes hypertension hyperlipidemia presents brought in by family for evaluation of altered mental status over the past 2 days Related Data Home Medications Medication Instructions Recorded Confirmed metformin 1,000 mg tablet 1,000 mg PO BID #180 tabs 07/17/22 10/01/22 nystatin 100,000 unit/gram topical 1 applic topical BID PRN skin 07/27/22 10/01/22 powder irritation #60 grams cefpodoxime 200 mg tablet 200 mg PO BID #28 tabs 09/18/22 10/01/22 dimethicone 1 %-zinc oxide 10 1 applic topical DAILY skin #113 10/01/22 %-vit A and D-aloe vera topical grams cream (A and D Diaper Rash Cream) donepezil 10 mg tablet 10 mg PO QHS #90 tabs 10/02/22 levothyroxine 100 mcg tablet 100 mcg PO DAILY #90 tabs 10/02/22 ferrous sulfate 325 mg (65 mg 325 mg PO BID #180 tabs 10/16/22 iron) tablet folic acid 1 mg tablet 1 mg PO DAILY #90 tabs 10/16/22 lisinopril 2.5 mg tablet 2.5 mg PO DAILY #90 tabs 10/16/22 metoprolol succinate 100 mg 100 mg PO DAILY #90 tabs 10/16/22 tablet,extended release 24 hr (Toprol XL) paroxetine HCl 20 mg tablet 20 mg PO DAILY #90 tabs 10/16/22 rivaroxaban 15 mg tablet (Xarelto) 15 mg PO DAILY@1700 #90 tabs 10/16/22 atorvastatin 40 mg tablet 40 mg PO DAILY AM #90 tabs 11/05/22 Previous Rx's Medication Instructions Recorded metformin 1,000 mg tablet 1,000 mg PO BID #180 tabs 07/17/22 nystatin 100,000 unit/gram topical 1 applic topical BID PRN skin 07/27/22 powder irritation #60 grams cefpodoxime 200 mg tablet 200 mg PO BID #28 tabs 09/18/22 dimethicone 1 %-zinc oxide 10 1 applic topical DAILY skin #113 10/01/22 %-vit A and D-aloe vera topical grams cream (A and D Diaper Rash Cream) donepezil 10 mg tablet 10 mg PO QHS #90 tabs 10/02/22 levothyroxine 100 mcg tablet 100 mcg PO DAILY #90 tabs 10/02/22 ferrous sulfate 325 mg (65 mg 325 mg PO BID #180 tabs 10/16/22 iron) tablet folic acid 1 mg tablet 1 mg PO DAILY #90 tabs 10/16/22 lisinopril 2.5 mg tablet 2.5 mg PO DAILY #90 tabs 10/16/22 metoprolol succinate 100 mg 100 mg PO DAILY #90 tabs 10/16/22 tablet,extended release 24 hr (Toprol XL) paroxetine HCl 20 mg tablet 20 mg PO DAILY #90 tabs 10/16/22 rivaroxaban 15 mg tablet (Xarelto) 15 mg PO DAILY@1700 #90 tabs 10/16/22 atorvastatin 40 mg tablet 40 mg PO DAILY AM #90 tabs 11/05/22 Allergies Allergy/AdvReac Type Severity Reaction Status Date / Time Latex, Natural Rubber Allergy Intermediate rash Verified 10/01/22 07:03 Penicillins Allergy Skin Rash Verified 10/01/22 07:03 General Stated Complaint: AMS/LOC ALANNA: 3 Review of Systems Narrative: Review of Systems Constitutional: negative Eyes: negative ENT: negative Cardiovascular: negative Respiratory: negative Gastrointestinal: negative : negative Musculoskeletal: negative Skin: negative Neurologic: AMS Psych: negative PFSH All Active Problems (Updated 11/08/22 @ 16:24 by Mo Cornelius MD) Altered mental status (Acute) Rotator cuff tear arthropathy of left shoulder (Acute) Hydronephrosis, right (Acute) Decreased activities of daily living (ADL) (Acute) Kidney stone on right side (Acute) Poor appetite (Acute) Palliative care patient (Acute) Glaucoma (Chronic) Alzheimer's dementia (Chronic) Atrial fibrillation (Chronic) Medical History Congestive heart failure Diabetes mellitus GI bleed HTN (hypertension) Hx of hyperlipidemia Hypothyroidism Family History Father Heart disease Hypertension Social History Smoking/Tobacco Use Status: Former Tobacco Use Quit Date: 09/06/59 Smoking risk assessment performed?: Yes Alcohol Intake: never Drug use: Never Substance use type: does not use Adopted: No Caregiver/Support person: Yes Foster care: No Household members: family Housing: house Number of Children: 2 number of grandchildren: 4 Communication Needs: None Education Level: high school Do you need help understanding health information?: Always current occupation: Retired Pets and animals: Yes (1) Pets and animals: cat(s) Sexually active: No Do you think of yourself as: straight/heterosexual Current gender identity: female What is your relationship status?: How often do you talk on the phone with friends or family?: three or more times per week How often do you get together with friends or relatives?: three or more times per week Do you belong to any clubs or organized social groups?: no Panel score (0-1 are the most socially isolated patients): 1 Debo/[employer] Special debo needs: No Seatbelt use: always Drive intox or ride w/intox 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 bus 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/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: No Additional Social history: unable to assess [facility] Exam Narrative Exam Narrative: Physical Examination General: alert, awake, cooperative, resting comfortably, no acute distress HEENT: normocephalic, atraumatic; PERRL, EOM intact, conjunctiva normal; no nasal discharge; moist mucous membranes, oral and pharyngeal mucosa normal, tolerating secretions Neck: supple, trachea midline; full ROM Chest: normal to inspection Respiratory: normal respiratory effort, speaking in full sentences, clear to auscultation, no wheezing, rales or rhonchi Cardiac: regular rate, regular rhythm, S1S2 intact, no murmurs rubs or gallops GI: abdomen soft, non-tender, non-distended; no palpable mass or hepatosplenomegaly Skin: no lesions, rashes or trauma appreciated Neuro: Slightly confused speech however no dysarthria, cranial nerves II through XII intact 5 out of 5 strength upper and lower extremities Extremities: Moving all extremities no signs of trauma Psych: Appropriate mood and affect Course Vital Signs Vital signs: Vital Signs Temperature 36.7 C 11/08/22 13:09 Pulse 72 11/08/22 13:09 Respiratory Rate 16 11/08/22 13:09 Blood Pressure 143/70 H 11/08/22 13:09 Pulse Oximetry 97 11/08/22 13:09 Temperature 36.7 C 11/08/22 13:09 Temperature Source Oral 11/08/22 13:09 Pulse 72 11/08/22 13:09 Respiratory Rate 16 11/08/22 13:18 Respiratory Effort Normal 11/08/22 13:20 Respiratory Depth Normal 11/08/22 13:18 Respiratory Pattern Normal 11/08/22 13:18 Blood Pressure 143/70 H 11/08/22 13:09 Blood Pressure Position Sitting 11/08/22 13:09 Pulse Oximetry 97 11/08/22 13:09 Oxygen Delivery Method Room Air 11/08/22 13:09 Oxygen Flow Rate 0 11/08/22 13:09 Pain Level 0 11/08/22 13:09 Lab/Test Results Lab/Test Results: Laboratory Tests Range/Units 11/08/22 11/08/22 11/08/22 13:45 13:54 13:54 WBC (4.4-10.8) 10^3/uL 6.23 RBC (3.93-5.22) 10^6/uL 5.30 H Hgb (11.2-15.7) g/dL 13.3 Hct (36.0-46.0) % 43.7 MCV (80-95) fL 83 MCH (27.0-33.0) pg 25.1 L MCHC (32.0-36.0) % 30.4 L RDW (11.7-14.6) % 15.1 H Plt Count (130-400) 10^3/uL 241 MPV (8.0-11.0) fL 10.6 Immature Gran % 0.3 Neutrophils % 66.9 Lymphocytes % 22.3 Monocytes % 9.0 Eosinophils % 1.0 Basophils % 0.5 Nucleated RBC % (0.0-0.3) % 0.0 Absolute Neutrophils (1.2-6.7) 10^3/uL 4.17 Absolute Lymphocytes (1.2-3.4) 10^3/uL 1.39 Absolute Monocytes (0.1-0.8) 10^3/uL 0.56 Absolute Eosinophils (0.0-0.7) 10^3/uL 0.06 Absolute Basophils (0.0-0.2) 10^3/uL 0.03 Sodium (136-145) mmol/L 143 Potassium (3.5-5.1) mmol/L 3.7 Chloride (98-107) mmol/L 102 Carbon Dioxide (21.0-32.0) mmol/L 26.3 Anion Gap (3-11) mmol/L 14.7 H BUN (7-18) mg/dL 20 H Creatinine (0.55-1.02) mg/dL 1.4 H Est GFR (CKD-EPI 2020) (mL/min/1.73m2) 38.03 Glucose (74-106) mg/dL 124 H Calcium (8.5-10.1) mg/dL 10.2 H Total Bilirubin (0.2-1.0) mg/dL 0.8 AST (15-37) U/L 10 L ALT (14-59) U/L 8 L Alkaline Phosphatase (46-116) U/L 73 Total Protein (6.4-8.2) g/dL 8.6 H Albumin (3.4-5.0) g/dL 4.4 TSH Cancelled 0.29 L Ethyl Alcohol (<10) mg/dL < 3.0
[2022-11-08 15:06] LABS: Bilirubin Negative (Negative); Blood Negative (Negative); Clarity Clear (Clear); Glucose Negative (Negative); Ketones Negative (Negative); Leukocyte Esterase Negative (Negative); Nitrite Negative (Negative); Urobilinogen 0.2 mg/dL (Up to 0.2)
[2022-11-08 15:10] LABS: *AMPHETAMINES SCREEN URINE Negative (Negative); *BARBITURATES SCREEN URINE Negative (Negative); *BENZODIAZEPINES SCREEN URINE Negative (Negative); Cannabinoids THC Negative (Negative); Cocaine Screen,Urine Negative (Negative); METHADONE URINE SCREEN Negative (Negative); OPIATES URINE SCREEN Negative (Negative)
[2022-11-08 15:11] LABS: Tricyclic Antidepressants Negative (Negative)
[2022-11-08 15:14] LABS: Epithelial Cells Few HPF (Negative); RBC 0-2 HPF (0-2); WBC 0-2 HPF (0-5)
[2022-11-08 15:18] LABS: Bacteria Few HPF (Negative); C & S Indicated? No; Casts 5-10 Hyaline LPF (Negative); Crystals Negative HPF (Negative); Mucus Moderate (Negative)
--- NOTE | 2022-11-08 15:18 | DI.VRAD_ITS ---
PROCEDURE INFORMATION: Exam: CT Head Without Contrast Exam date and time: 11/08/2022 2:51 PM Age: 82 years old Clinical indication: Altered mental status/memory loss TECHNIQUE: Imaging protocol: Computed tomography of the head without contrast. COMPARISON: No relevant prior studies available. FINDINGS: Brain: De La Cruz-white matter differentiation is within normal limits. No mass effect or midline shift. There are nonspecific [id number] confluent and patchy foci of periventricular white matter hypodensity as well as punctate foci of hypodensity in the rhett, probably due to chronic microvascular ischemic changes. Moderate diffuse parenchymal volume loss with predilection in the parietal lobes bilaterally (more posteromedial on the right and lateral parietal , high parietal on the left) and along the sylvian fissure in the anterior lateral temporal lobe and insula , left greater than right. No extra-axial fluid collection. Cerebral ventricles: No ventriculomegaly. Paranasal sinuses: Visualized sinuses are unremarkable. No fluid levels. Mastoid air cells: Visualized mastoid air cells are well aerated. Orbital cavities: Patient is status post cataract extraction bilaterally. Bones/joints: No acute fracture. Soft tissues: Unremarkable. IMPRESSION: 1. No acute intracranial abnormality. No mass effect or midline shift or acute intracranial hemorrhage. 2. Moderate parenchymal volume loss and [id number] chronic small vessel ischemic changes. Dictated and Authenticated by: Derek Kong MD. Ordering:DORINDA Hassan MD
--- NOTE | 2022-11-08 15:19 | DI.VRAD_ITS ---
PROCEDURE INFORMATION: Exam: XR Chest Exam date and time: 11/08/2022 2:57 PM Age: 82 years old Clinical indication: Other: AMS TECHNIQUE: Imaging protocol: Radiologic exam of the chest. Views: 1 view. COMPARISON: CT CHEST/ABD/PEL WO 09/14/2022 3:09 AM FINDINGS: Lungs: No consolidation. Pleural spaces: No pleural effusion. No pneumothorax. Heart/Mediastinum: Cardiac silhouette mildly enlarged. Bones/joints: Unremarkable. IMPRESSION: No acute findings. Dictated and Authenticated by: Derek Kong MD. Ordering:DORINDA Hassan MD
[2022-11-08 16:30] VITALS: BP 151/91; PULSE 83; RESP 15; TEMP 36.7; O2SAT 97
== END 2022-11-08 16:39 | disposition home or self-care (01) ==
PROVIDERS: Emergency Provider Emergency Medicine; PCP Family Medicine
DX: R41.82 Altered mental status, unspecified (principal); I10 Essential (primary) hypertension; E11.9 Type 2 diabetes mellitus without complications; Z79.899 Other long term (current) drug therapy
CPT/HCPCS: 36415; 80053; 80307; 96360; 99284; 70450; 71045; 80320; 81003; 81015; 84439; 84443; 85025

== ENCOUNTER → 2022-11-24 14:36 | Outpatient (BNVA) | payer MEDICARE, SELFPAY | PROVIDERS: PCP Family Medicine; Referring Provider Family Medicine; Visit Provider Urology | DX: N20.0 Calculus of kidney (principal) | CPT/HCPCS: 76775 ==

== ENCOUNTER 2022-12-08 13:17 | Emergency (ER) | payer MEDICARE, SELFPAY ==
[2022-12-08] VITALS (16 sets, daily range): BP systolic 116–171; BP diastolic 75–117; PULSE 69–158; RESP 13–20; TEMP 36.6; O2SAT 95–98
--- NOTE | 2022-12-08 13:15 | DI.RAD_ITS ---
Exam(s) XR PORTABLE CHEST AP EXAM: XR PORTABLE CHEST AP CLINICAL HISTORY: ams TECHNIQUE: 2D digital imaging was performed. COMPARISON: CR XR PORTABLE CHEST AP from 05/28/[address] ABDOMEN PELVIS WO from 05/28/[address] CHEST/ABD/PEL WO from 09/14/2022 CR,XR XR CHEST 1V IN DI DEPT from 11/08/2022 FINDINGS: Exam limited by rotation. Leads overlie the chest. LUNGS: Clear. No pleural abnormality seen. HEART: Mildly enlarged. AORTA: Normal diameter. Tortuous. BONES: Unremarkable for age. Soft tissues: Unremarkable. IMPRESSION: No acute findings. DATA REPOSITORY: RADIATION DOSE DELIVERED:
--- NOTE | 2022-12-08 13:15 | RT.EKG_ITS ---
APPROVED REPORT Exam: Resting ECG Reason for Exam: a fib Patient Location: E HR:148 bpm ECG Measurements Heart Rate 148 AXIS AL [id number] P [id number] QRSd 112 QRS -55 QT 334 T 116 QTc 525 Conclusion Atrial fibrillation with rapid V-rate...A-rate 322 LAD, consider left anterior fascicular block...axis(240,-40), S>R II III aVF LVH with secondary repolarization abnormality...multi-LVH criteria, abnrm ST-T afib, rvr
--- NOTE | 2022-12-08 13:15 | DI.CT_ITS ---
Exam(s) CT BRAIN NECK CTA EXAM: CT BRAIN NECK CTA CLINICAL HISTORY: ams. TECHNIQUE: Imaging Protocol: Axial CT angiography was performed with multi-slice acquisition and mu lti-planar and 3D reconstructions. CONTRAST MATERIAL: Intravenous: Omnipaque 350 Contrast volume:structured data in ml COMPARISON: CT CT HEAD WO from 11/08/2022 FINDINGS: CT Head W/O and W contrast: Ventricles and Extra axial spaces: Normal in size and morphology for the patient's age and degree of atrophy.. Hemorrhage: None. Cerebral parenchyma: Prominent white matter changes and prominent atrophy. Midline shift: None. Brainstem/Cerebellum: Normal. Calvarium: Normal. Visualized Paranasal sinuses/Mastoids: Clear. Soft Tissues: Unremarkable. Enhancement: Normal. CTA Brain W: Internal Carotid Arteries: Petrous: Normal. Cavernous: Normal. Cerebral: Normal. Middle Cerebral Arteries: Right: No aneurysm, occlusion or significant stenosis. Left: No aneurysm, occlusion or significant stenosis. Anterior Cerebral Arteries: Right: No aneurysm, occlusion or significant stenosis. Left: No aneurysm, occlusion or significant stenosis. Posterior cerebral Arteries: Right: No aneurysm, occlusion or significant stenosis. Left: No aneurysm, occlusion or significant stenosis. Vertebral Arteries: Right: No aneurysm, occlusion or significant stenosis. Left: No aneurysm, occlusion or significant stenosis. Basilar Artery: No aneurysm, occlusion or significant stenosis. CTA Neck W: Common Carotid: Right: Heavy calcific plaque at the bulb. No dissection, occlusion or significant stenosis. Left: Heavy calcific plaque lobe. No dissection, occlusion or significant stenosis. External Carotid: Right: No dissection, occlusion or significant stenosis. Left: No dissection, occlusion or significant stenosis. Internal Carotid: Right: Calcific plaque proximally causing [id number] stenosis.. No dissection. Stenosis. Left: Heavy calcific plaque causing moderate to severe stenosis, proximally 70 percent. . Vertebral Artery: Right: No dissection, occlusion or significant stenosis. Left: No dissection, occlusion or significant stenosis. Aorta: Heavily calcified at the arch. Lung Apices: Normal. Bones: Degenerative changes. Soft Tissues: Normal. IMPRESSION: 1. Normal CTA examination of the [place]. 2. Stable atrophy and white matter changes of small vessel disease. 3. Heavy calcified plaque at the common carotid bulbs and proximal internal carotid arteries causing ayzp-by-utmxfhtj stenosis on the right and moderate to severe stenosis on the left. RADIATION DOSE DELIVERED: 1,819.87mGy.cm Total DLP DATA REPOSITORY: All CT scans at this facility are submitted to the National Radiology Data Registry (NRDR) Dose Index Registry (DIR) with the [employer] (ACR). RADIATION OPTIMIZATION: All CT scans at this facility use at least one of these dose optimization te chniques: automated exposure control; mA and/or kV adjustment per patient size (includes targeted exa ms where dose is matched to clinical indication); or iterative reconstruction.
--- NOTE | 2022-12-08 13:28 | W.ED.GENAD ---
Discharge Plan Disposition Patient Disposition: Home Condition: Improving Discharge Details Clinical Impression: Atrial fibrillation, Altered mental status Primary Care Provider: Tariq Tolentino ED Provider: Mo Cornelius Home Meds and New Rx's Prescriptions: New diltiazem HCl 120 mg capsule,extended release 24hr 120 mg PO DAILY 7 Days Qty: 7 0RF No Action nystatin 100,000 unit/gram powder 1 applic topical BID PRN (Reason: skin irritation) Qty: 60 0RF atorvastatin 80 mg tablet 80 mg PO DAILY Qty: 90 3RF metformin 1,000 mg tablet 1,000 mg PO BID Qty: 180 3RF donepezil 10 mg tablet 10 mg PO QHS Qty: 90 3RF levothyroxine 100 mcg tablet 100 mcg PO DAILY Qty: 90 3RF ferrous sulfate 325 mg (65 mg iron) tablet 325 mg PO BID Qty: 180 0RF folic acid 1 mg tablet 1 mg PO DAILY Qty: 90 0RF lisinopril 2.5 mg tablet 2.5 mg PO DAILY Qty: 90 3RF metoprolol succinate [Toprol XL] 100 mg tablet extended release 24 hr 100 mg PO DAILY Qty: 90 3RF paroxetine HCl 20 mg tablet 20 mg PO DAILY Qty: 90 3RF Xarelto 15 mg tablet 15 mg PO DAILY@1700 Qty: 90 3RF A and D Diaper Rash Cream 1-10 % cream 1 applic topical DAILY Qty: 113 0RF Discharge Instructions Instructions: A-fib (Atrial Fibrillation) (ED), Altered Mental Status (ED) Additional Instructions: Please be seen by your primary care physician within the next week. I have given you a weeks worth prescription for diltiazem to help control heart rate and blood pressure Medical Decision Making 82-year-old female history of dementia A-fib on rivaroxaban history of TIA presents with altered mental status and resolving weakness was found by family this morning this a.m. to be slumped over her right side with a right gaze preference and possible facial droop. Per EMS her exam changed in route from focally weak on the right side to nonfocal ; fingerstick normal in field, noted to be hypertensive tachycardic. On arrival patient was taken directly to CT for CT CTA head and neck given concern for possible stroke must consider ischemic versus hemorrhagic process also also consider delirium related to infection versus dehydration versus lecture abnormality versus hypertensive emergency versus polypharmacy versus less likely hypothyroidism. CT CTA head and neck labs EKG chest x-ray admission likely 14: 36 patient resting comfortably much more interactive. Was given 50 mg IV push of diltiazem with great improvement of heart rate and improvement in blood pressure. Per patient's daughter patient was on diltiazem for some time was taken off by her primary care physician. Daughter and daughter's are primary caregivers they feel comfortable caring for patient at home but would appreciate consultation with care management for home health aide assistance if available. Pending lab results patient will be discharged home. CT head negative for stroke 14: 41 patient resting comfortably no acute distress Labs largely unremarkable. HPI General Date/Time Provider Initiated Documentation: 12/08/22 13:23. HPI Narrative: 82-year-old female history of dementia A-fib anticoagulated history of TIA in the past presents brought in by EMS for evaluation of altered mental status family found her to be altered slumped to the right side with a right gaze preference and possible right facial droop in route EMS endorses that patient became more responsive and less focal on examination fingerstick normal in the field noted to be hypertense and tachycardic. Related Data Home Medications Medication Instructions Recorded Confirmed metformin 1,000 mg tablet 1,000 mg PO BID #180 tabs 07/17/22 11/24/22 nystatin 100,000 unit/gram topical 1 applic topical BID PRN skin 07/27/22 11/24/22 powder irritation #60 grams dimethicone 1 %-zinc oxide 10 1 applic topical DAILY skin #113 10/01/22 11/24/22 %-vit A and D-aloe vera topical grams cream (A and D Diaper Rash Cream) donepezil 10 mg tablet 10 mg PO QHS #90 tabs 10/02/22 11/24/22 levothyroxine 100 mcg tablet 100 mcg PO DAILY #90 tabs 10/02/22 11/24/22 ferrous sulfate 325 mg (65 mg 325 mg PO BID #180 tabs 10/16/22 11/24/22 iron) tablet folic acid 1 mg tablet 1 mg PO DAILY #90 tabs 10/16/22 11/24/22 lisinopril 2.5 mg tablet 2.5 mg PO DAILY #90 tabs 10/16/22 11/24/22 metoprolol succinate 100 mg 100 mg PO DAILY #90 tabs 10/16/22 11/24/22 tablet,extended release 24 hr (Toprol XL) paroxetine HCl 20 mg tablet 20 mg PO DAILY #90 tabs 10/16/22 11/24/22 rivaroxaban 15 mg tablet (Xarelto) 15 mg PO DAILY@1700 #90 tabs 10/16/22 11/24/22 atorvastatin 80 mg tablet 80 mg PO DAILY #90 tabs 12/01/22 12/01/22 diltiazem HCl 120 mg 120 mg PO DAILY 1 week #7 caps 12/08/22 capsule,extended release 24 hr Previous Rx's Medication Instructions Recorded metformin 1,000 mg tablet 1,000 mg PO BID #180 tabs 07/17/22 nystatin 100,000 unit/gram topical 1 applic topical BID PRN skin 07/27/22 powder irritation #60 grams dimethicone 1 %-zinc oxide 10 1 applic topical DAILY skin #113 10/01/22 %-vit A and D-aloe vera topical grams cream (A and D Diaper Rash Cream) donepezil 10 mg tablet 10 mg PO QHS #90 tabs 10/02/22 levothyroxine 100 mcg tablet 100 mcg PO DAILY #90 tabs 10/02/22 ferrous sulfate 325 mg (65 mg 325 mg PO BID #180 tabs 10/16/22 iron) tablet folic acid 1 mg tablet 1 mg PO DAILY #90 tabs 10/16/22 lisinopril 2.5 mg tablet 2.5 mg PO DAILY #90 tabs 10/16/22 metoprolol succinate 100 mg 100 mg PO DAILY #90 tabs 10/16/22 tablet,extended release 24 hr (Toprol XL) paroxetine HCl 20 mg tablet 20 mg PO DAILY #90 tabs 10/16/22 rivaroxaban 15 mg tablet (Xarelto) 15 mg PO DAILY@1700 #90 tabs 10/16/22 atorvastatin 80 mg tablet 80 mg PO DAILY #90 tabs 12/01/22 diltiazem HCl 120 mg 120 mg PO DAILY 1 week #7 caps 12/08/22 capsule,extended release 24 hr Allergies Allergy/AdvReac Type Severity Reaction Status Date / Time Latex, Natural Rubber Allergy Intermediate rash Verified 12/01/22 11:28 Penicillins Allergy Skin Rash Verified 12/01/22 11:28 General ALANNA: 3 Review of Systems Narrative: Review of Systems Constitutional: Altered male status Eyes: negative ENT: negative Cardiovascular: negative Respiratory: negative Gastrointestinal: negative : negative Musculoskeletal: negative Skin: negative Neurologic: negative Psych: negative PFSH All Active Problems (Updated 12/08/22 @ 14:44 by Mo Cornelius MD) TIA (transient ischemic attack) (Acute) Altered mental status (Acute) Rotator cuff tear arthropathy of left shoulder (Acute) Decreased activities of daily living (ADL) (Acute) Poor appetite (Acute) Palliative care patient (Acute) Glaucoma (Chronic) Alzheimer's dementia (Chronic) Atrial fibrillation (Chronic) Medical History (Updated 12/08/22 @ 14:44 by Mo Cornelius MD) Congestive heart failure Diabetes mellitus GI bleed HTN (hypertension) Hx of hyperlipidemia Hydronephrosis, right Hypothyroidism Kidney stone on right side Family History Father Heart disease Hypertension Social History Smoking/Tobacco Use Status: Former Tobacco Use Quit Date: 09/06/59 Smoking risk assessment performed?: Yes Alcohol Intake: never Drug use: Never Substance use type: does not use Adopted: No Caregiver/Support person: Yes Foster care: No Household members: family Housing: house Number of Children: 2 number of grandchildren: 4 Communication Needs: None Education Level: high school Do you need help understanding health information?: Always current occupation: Retired Pets and animals: Yes (1) Pets and animals: cat(s) Sexually active: No Do you think of yourself as: straight/heterosexual Current gender identity: female What is your relationship status?: How often do you talk on the phone with friends or family?: three or more times per week How often do you get together with friends or relatives?: three or more times per week Do you belong to any clubs or organized social groups?: no Panel score (0-1 are the most socially isolated patients): 1 Debo/Voodoo: Nondenominational Special debo needs: No Seatbelt use: always Drive intox or ride w/intox motorcoach driver: No Additional Social history: unable to assess privatley Exam Narrative Exam Narrative: Physical Examination General: Disoriented and combative, frail HEENT: normocephalic, atraumatic; PERRL, EOM intact however right gaze preference, conjunctiva normal; no nasal discharge; moist mucous membranes, oral and pharyngeal mucosa normal, tolerating secretions Neck: supple, trachea midline; full ROM Chest: normal to inspection Respiratory: normal respiratory effort, speaking in full sentences, clear to auscultation, no wheezing, rales or rhonchi Cardiac: regular rate, regular rhythm, S1S2 intact, no murmurs rubs or gallops GI: abdomen soft, non-tender, non-distended; no palpable mass or hepatosplenomegaly Skin: Skin turgor no lesions, rashes or trauma appreciated Neuro: Patient agitated appears globally confused he is speaking spontaneously without aphasia, is moving limbs spontaneously minimally not following commands to gauge strength Psych: Psychomotor agitation
[2022-12-08] MEDS: Normal Saline - Diluent 50 ML VIAL IJ (13:40)
[2022-12-08] MEDS: Omnipaque 350 MG/ML 500 ML BTL-Imaging package IJ (13:41)
[2022-12-08] MEDS: Normal Saline 500 ML 1000 ML IV (14:03)
[2022-12-08 14:07] LABS: Abs Immature Grans 0.02 10^3/uL (0.0-0.06); Absolute Basophil Count 0.03 10^3/uL (0.0-0.2); Absolute Eosinophil Count 0.02 10^3/uL (0.0-0.7); Absolute Lymphocyte Count 0.97 10^3/uL (1.2-3.4); Absolute Monocyte Count 0.67 10^3/uL (0.1-0.8); Absolute Neutrophil Count 5.16 10^3/uL (1.2-6.7); Basophils % 0.4; Eosinophils % 0.3; HCT 38.2 % (36.0-46.0); HGB 12.4 g/dL (11.2-15.7); Immature Grans % 0.3; Lymphocytes % 14.1; MCH 25.5 pg (27.0-33.0); MCHC 32.5 % (32.0-36.0); MCV 79 fL (80-95); MPV 10.1 fL (8.0-11.0); Monocytes % 9.8; Neutrophils % 75.1; Platelet Count 216 10^3/uL (130-400); RBC 4.86 10^6/uL (3.93-5.22); RDW 15.8 % (11.7-14.6); RDW-SD 44.6 fL; WBC 6.87 10^3/uL (4.4-10.8)
[2022-12-08 14:09] LABS: Bilirubin Negative (Negative); Blood Trace-intact (Negative); Clarity Clear (Clear); Glucose Negative (Negative); Ketones 15 mg/dL (Negative); Leukocyte Esterase Negative (Negative); Nitrite Negative (Negative); Urobilinogen 0.2 mg/dL (Up to 0.2)
[2022-12-08] MEDS: dilTIAZem 25 MG/5 ML VIAL 15 MG IVP (14:13)
[2022-12-08 14:21] LABS: Bacteria Negative HPF (Negative); C & S Indicated? No; Casts 0-2 Hyaline LPF (Negative); Crystals Negative HPF (Negative); Epithelial Cells Rare HPF (Negative); Mucus Negative (Negative); RBC 0-2 HPF (0-2); WBC Negative HPF (0-5)
[2022-12-08 14:26] LABS: *AMPHETAMINES SCREEN URINE Negative (Negative); *BARBITURATES SCREEN URINE Negative (Negative); *BENZODIAZEPINES SCREEN URINE Negative (Negative); Cannabinoids THC Negative (Negative); Cocaine Screen,Urine Negative (Negative); METHADONE URINE SCREEN Negative (Negative); OPIATES URINE SCREEN Negative (Negative)
[2022-12-08 14:27] LABS: Tricyclic Antidepressants Negative (Negative)
[2022-12-08 14:27] LABS: ALT 6 U/L (14-59); AST 12 U/L (15-37); Albumin 3.6 g/dL (3.4-5.0); Alkaline Phosphatase 62 U/L (46-116); Anion Gap 14.7 mmol/L (3-11); BUN 14 mg/dL (7-18); Bilirubin, Total 1.2 mg/dL (0.2-1.0); CO2 24.3 mmol/L (21.0-32.0); CREATININE 0.9 mg/dL (0.55-1.02); Calcium 9.3 mg/dL (8.5-10.1); Chloride 96 mmol/L (98-107); Creatine Kinase 66 U/L (26-192); Estimated GFR 64.63 (mL/min/1.73m2); Glucose 138 mg/dL (74-106); Potassium 3.2 mmol/L (3.5-5.1); Sodium 135 mmol/L (136-145); Total Protein 7.9 g/dL (6.4-8.2); Troponin I < 50 ng/L (<or=60)
[2022-12-08 14:30] LABS: INR 1.1 (0.9-1.1); PTT Activated 27.9 sec (21.5-31.9); Prothrombin Time 11.6 sec (9.3-11.0)
[2022-12-08 14:36] LABS: Magnesium 1.1 mg/dL (1.8-2.4); NT-proBNP 4711 pg/mL (<300); TSH (W/Ref FT4) 0.27 uIU/mL (0.36-3.74)
[2022-12-08 14:44] LABS: ETHANOL BLOOD < 3.0 mg/dL (<10)
[2022-12-08] MEDS: ACETAMINOPHEN 1,000 MG/100 ML BTL 400 MG IVPB (15:20)
[2022-12-08] MEDS: Lidocaine 5% Patch 1 PATCH TP (15:20)
--- NOTE | 2022-12-08 18:49 | NUR.NOTE ---
Nursing Note: Lab called stating they did not have enough to do a Free T4. Order was cancelled.
== END 2022-12-08 16:24 | disposition home or self-care (01) ==
PROVIDERS: Emergency Provider Emergency Medicine; PCP Family Medicine
DX: I48.91 Unspecified atrial fibrillation (principal); R41.82 Altered mental status, unspecified; F03.90 Unspecified dementia, unspecified severity, without behavioral disturbance, psychotic disturbance, mood disturbance, and anxiety; I11.0 Hypertensive heart disease with heart failure; I50.9 Heart failure, unspecified; E11.9 Type 2 diabetes mellitus without complications; E03.9 Hypothyroidism, unspecified; R45.1 Restlessness and agitation; Z79.84 Long term (current) use of oral hypoglycemic drugs; Z79.01 Long term (current) use of anticoagulants; Z86.73 Personal history of transient ischemic attack (TIA), and cerebral infarction without residual deficits; Z79.899 Other long term (current) drug therapy
CPT/HCPCS: 70496; 70498; 80053; 80307; 82550; 93005; 96365; 96375; 99285; 71045; 80320; 81003; 81015; 83735; 83880; 84439; 84443; 84484; 85025; 85610; 85730; 93010; 99284; J0131